=== PATIENT | female | born 1945 | race Caucasian/White ===

== ENCOUNTER 2018-03-10 19:31 | Inpatient (IN) | payer MEDICARE, BC ==
[~2018-03-10] VITALS: Ht 160 cm; Wt 53.2 kg
[2018-03-10 21:02] VITALS: BP 132/82
[2018-03-10] MEDS ORDERED: OLAN5TAB9 PO (21:42)
[2018-03-10] MEDS ORDERED: POLY255P PO (21:42)
[2018-03-10] MEDS ORDERED: BISA10SU2 RC (21:42)
[2018-03-10] MEDS ORDERED: ONDA4TAB12 PO (21:42)
[2018-03-10] MEDS ORDERED: CALC-157 PO (21:42)
[2018-03-10] MEDS ORDERED: AMLO5TAB2 PO (21:42)
[2018-03-10] MEDS ORDERED: MELA3TAB2 PO ×2 (21:42→22:08)
[2018-03-10] MEDS ORDERED: MIRT7.5T8 PO (21:42)
[2018-03-10] MEDS ORDERED: PROP10TA PO (21:42)
[2018-03-10] MEDS ORDERED: DONE10TA7 PO (21:42)
[2018-03-10] MEDS ORDERED: DOCU100C28 PO (21:42)
[2018-03-10] MEDS ORDERED: LEVO50TA5 PO (21:43)
[2018-03-10] MEDS ORDERED: ENOX40DI SQ (21:48)
[2018-03-10] MEDS ORDERED: ASPI-612 PO (21:48)
[2018-03-10] MEDS ORDERED: METHYL SALICYLATE/MENTHOL TOPICAL OINTMENT 29GM TUBE. TP PRN (22:00)
[2018-03-10] MEDS ORDERED: ACETAMINOPHEN 325 MG TABLET PO PRN (22:00)
[2018-03-10] MEDS ORDERED: MAGNESIUM HYDROXIDE 2,400 MG/30 ML ORAL.SUSP. PO PRN (22:00)
[2018-03-10] MEDS ORDERED: MAG HYDROX/AL HYDROX/SIMETH 30 ML ORAL.SUSP PO PRN (22:00)
[2018-03-10] MEDS ORDERED: ONDANSETRON ODT 4 MG TAB.RAPDIS PO PRN (22:15)
[2018-03-10] MEDS ORDERED: OLANZapine 2.5 MG TABLET PO PRN (22:15)
[2018-03-10] MEDS ORDERED: BISACODYL 10 MG SUPP.RECT RC PRN (22:15)
[2018-03-10 22:32] LABS: BASO % 0 % (0-3); EOS % 1 % (0-3); HEMATOCRIT 42.1 % (36.0-47.0); HEMOGLOBIN 13.7 g/dL (12.0-15.5); LYMPH # 2.5 x10^3/uL (1.0-4.8); LYMPH % 37 % (24-48); MEAN CORPUSCULAR HEMOGLOBIN 26 pg (25-35); MEAN CORPUSCULAR HGB CONC 33 g/dL (31-37); MEAN CORPUSCULAR VOLUME 79 fL (79-100); MONO # 0.7 x10^3/uL (0.0-1.1); MONO % 10 % (0-9); NEUT # 3.6 x10^3uL (1.8-7.7); NEUT % 52 % (31-73); PLATELET COUNT 325 x10^3/uL (140-400); RED BLOOD COUNT 5.33 x10^6/uL (3.50-5.40); RED CELL DISTRIBUTION WIDTH 14.7 % (11.5-14.5); WHITE BLOOD COUNT 6.9 x10^3/uL (4.0-11.0)
[2018-03-10 22:43] LABS: ALBUMIN/GLOBULIN RATIO 0.9 (1.0-1.7); CALCIUM 9.1 mg/dL (8.5-10.1); CREATININE 0.6 mg/dL (0.6-1.0); GFR 98.3; MAGNESIUM 2.1 mg/dL (1.8-2.4); TOTAL BILIRUBIN 0.4 mg/dL (0.2-1.0); TOTAL PROTEIN 6.5 g/dL (6.4-8.2)
[2018-03-10 22:49] LABS: POTASSIUM 2.8 mmol/L (3.5-5.1)
--- NOTE | 2018-03-10 23:07 | EKG ---
[address] [address] Test Date: 2018-03-10 Test Time: 21:36:28 Pat Name: REMINGTON SADLER Department: Room: [address] [place] [address] Gender: F [place]: : 1945 Requested By: LAUREL COUGHLIN Order Number: [id number] Reading MD: Indra Roach MD Measurements Intervals [place] Rate: 53 P: 56 WA: 124 QRS: -33 QRSD: 78 T: 96 QT: 436 QTc: 415 Interpretive Statements SINUS RHYTHM Electronically Signed On 03-16-2018 12:23:09 CDT by Indra Roach MD
[2018-03-10] MEDS ORDERED: POTASSIUM CHLORIDE 20 MEQ TABLET.ER. PO ONE (23:15)
[2018-03-10] MEDS: MIRTAZAPINE 7.5 MG TABLET. PO SCH (23:26)
[2018-03-11] MEDS ORDERED: POTASSIUM CHLORIDE 20 MEQ TABLET.ER. PO ONE ×2 (03:00→05:00)
[2018-03-11 06:08] VITALS: BP 120/79
[2018-03-11 08:19] VITALS: BP 130/84
[2018-03-11] MEDS: DOCUSATE SODIUM 100 MG CAPSULE PO SCH ×2 (08:33→20:31)
[2018-03-11] MEDS: CALCIUM CARB/VIT D3 500/200 TABLET PO SCH (08:33)
[2018-03-11] MEDS: amLODIPine BESYLATE 5 MG TABLET PO SCH (08:33)
[2018-03-11] MEDS: ASPIRIN ENTERIC COATED 81 MG TABLET.DR. PO SCH (08:33)
[2018-03-11] MEDS: DONEPEZIL HCL 10 MG TABLET PO SCH (08:33)
[2018-03-11] MEDS: POLYETHYLENE GLYCOL 3350 17 GM PACKET. PO SCH (08:34)
[2018-03-11] MEDS: LEVOTHYROXINE 50 MCG TABLET PO SCH (08:34)
[2018-03-11] MEDS: PROPRANOLOL 10 MG TABLET. PO SCH ×3 (08:34→20:31)
[2018-03-11 14:39] VITALS: BP 122/85
[2018-03-11 14:39] LABS: THYROID STIM HORMONE (TSH) 6.147 uIU/mL (0.358-3.740)
[2018-03-11 16:20] VITALS: BP 121/61
--- NOTE | 2018-03-11 18:17 | PDOC ---
Exam Note: Ru Note: Please also refer to the separate dictated note~for this date of service dictated separately.~Patient seen individually. Discussed the patient with Nursing staff reviewed the chart.~Reviewed interim history and current functioning. Reviewed vital signs,~Labs/ Radiology~and current medications noted below. Continue current treatment with the changes noted in the dictated addendum note Assessment: Vital Signs: Vital Signs Date Time Temp Pulse Resp B/P (MAP) Pulse Ox O2 Delivery O2 Flow Rate FiO2 03/11/18 16:20 97.6 64 18 121/61 (81) 95 03/10/18 21:02 Room Air I&O Intake and Output 03/11/18 07:00 Intake Total 120 ml Balance 120 ml Intake Oral 120 ml Labs: Laboratory Tests Test 03/10/18 22:10 03/11/18 07:10 White Blood Count 6.9 x10^3/uL (4.0-11.0) Red Blood Count 5.33 x10^6/uL (3.50-5.40) Hemoglobin 13.7 g/dL (12.0-15.5) Hematocrit 42.1 % (36.0-47.0) Mean Corpuscular Volume 79 fL (79-100) Mean Corpuscular Hemoglobin 26 pg (25-35) Mean Corpuscular Hemoglobin Concent 33 g/dL (31-37) Red Cell Distribution Width 14.7 % (11.5-14.5) H Platelet Count 325 x10^3/uL (140-400) Neutrophils (%) (Auto) 52 % (31-73) Lymphocytes (%) (Auto) 37 % (24-48) Monocytes (%) (Auto) 10 % (0-9) H Eosinophils (%) (Auto) 1 % (0-3) Basophils (%) (Auto) 0 % (0-3) Neutrophils # (Auto) 3.6 x10^3uL (1.8-7.7) Lymphocytes # (Auto) 2.5 x10^3/uL (1.0-4.8) Monocytes # (Auto) 0.7 x10^3/uL (0.0-1.1) Eosinophils # (Auto) 0.0 x10^3/uL (0.0-0.7) Basophils # (Auto) 0.0 x10^3/uL (0.0-0.2) Sodium Level 140 mmol/L (136-145) Potassium Level 2.8 mmol/L (3.5-5.1) *L 4.4 mmol/L (3.5-5.1) Chloride Level 100 mmol/L (98-107) Carbon Dioxide Level 31 mmol/L (21-32) Anion Gap 9 (6-14) Blood Urea Nitrogen 17 mg/dL (7-20) Creatinine 0.6 mg/dL (0.6-1.0) Estimated GFR (Cockcroft-Gault) 98.3 BUN/Creatinine Ratio 28 (6-20) H Glucose Level 84 mg/dL (70-99) Calcium Level 9.1 mg/dL (8.5-10.1) Magnesium Level 2.1 mg/dL (1.8-2.4) Iron Level 47 ug/dL (50-170) L Total Iron Binding Capacity 277 ug/dL (250-450) Iron Saturation 17 % (15-34) Total Bilirubin 0.4 mg/dL (0.2-1.0) Aspartate Amino Transferase (AST) 13 U/L (15-37) L Alanine Aminotransferase (ALT) 18 U/L (14-59) Alkaline Phosphatase 61 U/L (46-116) Total Protein 6.5 g/dL (6.4-8.2) Albumin 3.0 g/dL (3.4-5.0) L Albumin/Globulin Ratio 0.9 (1.0-1.7) L Triglycerides Level 50 mg/dL (0-150) Cholesterol Level 180 mg/dL (0-200) LDL Cholesterol, Calculated 119 mg/dL (0-100) H VLDL Cholesterol, Calculated 10 mg/dL (0-40) Non-HDL Cholesterol Calculated 129 mg/dL (0-129) HDL Cholesterol 51 mg/dL (40-60) Cholesterol/HDL Ratio 3.0 Vitamin B12 Level 1114 pg/mL (247-911) H 25-Hydroxy Vitamin D Total 54.8 ng/mL (30-100) Thyroid Stimulating Hormone (TSH) 6.147 uIU/mL (0.358-3.740) Current Medications: Meds: Current Medications Acetaminophen (Tylenol) 650 mg PRN Q6HRS PRN PO PAIN / TEMP; Start 03/10/18 at 22:00 Multi-Ingredient Ointment (Analgesic [place]) 1 shira PRN QID PRN TP MUSCLE PAIN; Start 03/10/18 at 22:00 Al Hydroxide/Mg Hydroxide (Mylanta Plus Xs) 15 ml PRN AFTMEALHC PRN PO DYSPEPSIA; Start 03/10/18 at 22:00 Magnesium Hydroxide (Milk Of Magnesia) 2,400 mg PRN QHS PRN PO CONSTIPATION; Start 03/10/18 at 22:00 Donepezil HCl (Aricept) 10 mg DAILY PO Last administered on 03/11/18 08:33; Start 03/11/18 at 09:00 Mirtazapine (Remeron) 7.5 mg QHS PO Last administered on 03/10/18 23:26; Start 03/10/18 at 22:30 Olanzapine (ZyPREXA) 2.5 mg PRN Q6HRS PRN PO ANXIETY / AGITATION; Start at 22:15 Melatonin 3 mg PRN QHS PRN PO INSOMNIA; Start 03/10/18 at 22:30 Amlodipine Besylate (Norvasc) 5 mg DAILY PO Last administered on 03/11/18 08: 33; Start 03/11/18 at 09:00 Aspirin (Aspirin Enteric Coated) 81 mg DAILY PO Last administered on 03/11/18 08:33; Start 03/11/18 at 09:00 Bisacodyl (Dulcolax Supp) 10 mg PRN DAILY PRN RC CONSTIPATION; Start 03/10/18 at 22:15 Calcium/Vitamin D (Oscal D 500mg/ 200uts) 1 tab DAILY PO Last administered on 08:33; Start 03/11/18 at 09:00 Docusate Sodium (Colace) 100 mg BID PO Last administered on 03/11/18 08:33; Start 03/11/18 at 09:00 Levothyroxine Sodium (Synthroid) 50 mcg DAILYAC PO Last administered on 08:34; Start 03/11/18 at 07:30 Ondansetron HCl (Zofran Odt) 4 mg PRN Q6HRS PRN PO NAUSEA/VOMITING; Start 03/10 at 22:15 Polyethylene Glycol (miraLAX) 17 gm DAILY PO Last administered on 4/18/18at 08: 34; Start 03/11/18 at 09:00 Propranolol HCl (Inderal) 10 mg TID PO Last administered on 03/11/18at 14:40; Start 03/11/18 at 09:00 Potassium Chloride (Klor-Con) 40 meq 1X ONCE PO Last administered on at 23:27; Start 03/10/18 at 23:15; Stop 03/10/18 at 23:22; Status DC Potassium Chloride (Klor-Con) 40 meq 1X ONCE PO Last administered on at 02:40; Start 03/11/18 at 03:00; Stop 03/11/18 at 03:02; Status DC Potassium Chloride (Klor-Con) 40 meq 1X ONCE PO Last administered on at 05:00; Start 03/11/18 at 05:00; Stop 03/11/18 at 05:01; Status DC Active Scripts Active Reported Melatonin 3 Mg Tablet 3 Mg PO PRN QHS PRN Lovenox (Enoxaparin Sodium) 40 Mg/0.4 Ml Disp.syrin 40 Mg SQ DAILY Aspirin Ec (Aspirin) 81 Mg Tablet.dr 81 Mg PO DAILY Levothyroxine Sodium 50 Mcg Tablet 50 Mcg PO DAILYAC Propranolol Hcl 10 Mg Tablet 10 Mg PO TID Polyethylene Glycol 3350 255 Gm Powder 17 Gm PO DAILY Ondansetron Odt (Ondansetron) 4 Mg Tab.rapdis 4 Mg PO PRN Q6HRS PRN Olanzapine 5 Mg Tablet 2.5 Mg PO PRN Q6HRS PRN Mirtazapine 7.5 Mg Tablet 7.5 Mg PO QHS Donepezil Hcl 10 Mg Tablet 10 Mg PO DAILY Docusate Sodium 100 Mg Capsule 100 Mg PO BID Calcium 500 + Vit D 200 Tablet (Calcium Carbonate/Vitamin D3) 1 Each Tablet 1 Each PO DAILY Bisacodyl 10 Mg Supp.rect 10 Mg RC PRN DAILY PRN Amlodipine Besylate 5 Mg Tablet 5 Mg PO DAILY I have reviewed the current psychotropics carefully including drug interactions. Risk benefit ratio favors no change other than as noted in my dictated progress note. Diagnosis: Problems: (1) Anxiety disorder (2) Dementia in Alzheimer's disease with delusions (3) Dementia in Alzheimer's disease with depression (4) Dementia, vascular, with delusions (5) Impulse control disorder LAUREL COUGHLIN MD Mar 11, 2018 18:17
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
[2018-03-11] MEDS: MIRTAZAPINE 7.5 MG TABLET. PO SCH (20:31)
[2018-03-11] MEDS: risperiDONE 0.25 MG TABLET. PO SCH (20:32)
--- NOTE | 2018-03-11 21:10 | PDOC ---
Exam Note: Ru Note: Please also refer to the separate dictated note~for this date of service dictated separately.~Patient seen individually. Discussed the patient with Nursing staff reviewed the chart.~Reviewed interim history and current functioning. Reviewed vital signs,~Labs/ Radiology~and current medications noted below. Continue current treatment with the changes noted in the dictated addendum note Assessment: Vital Signs: Vital Signs Date Time Temp Pulse Resp B/P (MAP) Pulse Ox O2 Delivery O2 Flow Rate FiO2 03/11/18 20:31 64 121/61 03/11/18 16:20 97.6 18 95 03/10/18 21:02 Room Air I&O Intake and Output 03/11/18 07:00 Intake Total 120 ml Balance 120 ml Intake Oral 120 ml Labs: Laboratory Tests Test 03/10/18 22:10 03/11/18 07:10 White Blood Count 6.9 x10^3/uL (4.0-11.0) Red Blood Count 5.33 x10^6/uL (3.50-5.40) Hemoglobin 13.7 g/dL (12.0-15.5) Hematocrit 42.1 % (36.0-47.0) Mean Corpuscular Volume 79 fL (79-100) Mean Corpuscular Hemoglobin 26 pg (25-35) Mean Corpuscular Hemoglobin Concent 33 g/dL (31-37) Red Cell Distribution Width 14.7 % (11.5-14.5) H Platelet Count 325 x10^3/uL (140-400) Neutrophils (%) (Auto) 52 % (31-73) Lymphocytes (%) (Auto) 37 % (24-48) Monocytes (%) (Auto) 10 % (0-9) H Eosinophils (%) (Auto) 1 % (0-3) Basophils (%) (Auto) 0 % (0-3) Neutrophils # (Auto) 3.6 x10^3uL (1.8-7.7) Lymphocytes # (Auto) 2.5 x10^3/uL (1.0-4.8) Monocytes # (Auto) 0.7 x10^3/uL (0.0-1.1) Eosinophils # (Auto) 0.0 x10^3/uL (0.0-0.7) Basophils # (Auto) 0.0 x10^3/uL (0.0-0.2) Sodium Level 140 mmol/L (136-145) Potassium Level 2.8 mmol/L (3.5-5.1) *L 4.4 mmol/L (3.5-5.1) Chloride Level 100 mmol/L (98-107) Carbon Dioxide Level 31 mmol/L (21-32) Anion Gap 9 (6-14) Blood Urea Nitrogen 17 mg/dL (7-20) Creatinine 0.6 mg/dL (0.6-1.0) Estimated GFR (Cockcroft-Gault) 98.3 BUN/Creatinine Ratio 28 (6-20) H Glucose Level 84 mg/dL (70-99) Calcium Level 9.1 mg/dL (8.5-10.1) Magnesium Level 2.1 mg/dL (1.8-2.4) Iron Level 47 ug/dL (50-170) L Total Iron Binding Capacity 277 ug/dL (250-450) Iron Saturation 17 % (15-34) Total Bilirubin 0.4 mg/dL (0.2-1.0) Aspartate Amino Transferase (AST) 13 U/L (15-37) L Alanine Aminotransferase (ALT) 18 U/L (14-59) Alkaline Phosphatase 61 U/L (46-116) Total Protein 6.5 g/dL (6.4-8.2) Albumin 3.0 g/dL (3.4-5.0) L Albumin/Globulin Ratio 0.9 (1.0-1.7) L Triglycerides Level 50 mg/dL (0-150) Cholesterol Level 180 mg/dL (0-200) LDL Cholesterol, Calculated 119 mg/dL (0-100) H VLDL Cholesterol, Calculated 10 mg/dL (0-40) Non-HDL Cholesterol Calculated 129 mg/dL (0-129) HDL Cholesterol 51 mg/dL (40-60) Cholesterol/HDL Ratio 3.0 Vitamin B12 Level 1114 pg/mL (247-911) H 25-Hydroxy Vitamin D Total 54.8 ng/mL (30-100) Thyroid Stimulating Hormone (TSH) 6.147 uIU/mL (0.358-3.740) Current Medications: Meds: Current Medications Acetaminophen (Tylenol) 650 mg PRN Q6HRS PRN PO PAIN / TEMP; Start 03/10/18 at 22:00 Multi-Ingredient Ointment (Analgesic [place]) 1 shira PRN QID PRN TP MUSCLE PAIN; Start 03/10/18 at 22:00 Al Hydroxide/Mg Hydroxide (Mylanta Plus Xs) 15 ml PRN AFTMEALHC PRN PO DYSPEPSIA; Start 03/10/18 at 22:00 Magnesium Hydroxide (Milk Of Magnesia) 2,400 mg PRN QHS PRN PO CONSTIPATION; Start 03/10/18 at 22:00 Donepezil HCl (Aricept) 10 mg DAILY PO Last administered on 03/11/18 08:33; Start 03/11/18 at 09:00 Mirtazapine (Remeron) 7.5 mg QHS PO Last administered on 03/11/18 20:31; Start 03/10/18 at 22:30 Olanzapine (ZyPREXA) 2.5 mg PRN Q6HRS PRN PO ANXIETY / AGITATION; Start at 22:15 Melatonin 3 mg PRN QHS PRN PO INSOMNIA; Start 03/10/18 at 22:30 Amlodipine Besylate (Norvasc) 5 mg DAILY PO Last administered on 03/11/18 08: 33; Start 03/11/18 at 09:00 Aspirin (Aspirin Enteric Coated) 81 mg DAILY PO Last administered on 03/11/18 08:33; Start 03/11/18 at 09:00 Bisacodyl (Dulcolax Supp) 10 mg PRN DAILY PRN RC CONSTIPATION; Start 03/10/18 at 22:15 Calcium/Vitamin D (Oscal D 500mg/ 200uts) 1 tab DAILY PO Last administered on 08:33; Start 03/11/18 at 09:00 Docusate Sodium (Colace) 100 mg BID PO Last administered on 03/11/18 20:31; Start 03/11/18 at 09:00 Levothyroxine Sodium (Synthroid) 50 mcg DAILYAC PO Last administered on 08:34; Start 03/11/18 at 07:30 Ondansetron HCl (Zofran Odt) 4 mg PRN Q6HRS PRN PO NAUSEA/VOMITING; Start 03/10 at 22:15 Polyethylene Glycol (miraLAX) 17 gm DAILY PO Last administered on 4/18/18at 08: 34; Start 03/11/18 at 09:00 Propranolol HCl (Inderal) 10 mg TID PO Last administered on 03/11/18at 20:31; Start 03/11/18 at 09:00 Potassium Chloride (Klor-Con) 40 meq 1X ONCE PO Last administered on at 23:27; Start 03/10/18 at 23:15; Stop 03/10/18 at 23:22; Status DC Potassium Chloride (Klor-Con) 40 meq 1X ONCE PO Last administered on at 02:40; Start 03/11/18 at 03:00; Stop 03/11/18 at 03:02; Status DC Potassium Chloride (Klor-Con) 40 meq 1X ONCE PO Last administered on at 05:00; Start 03/11/18 at 05:00; Stop 03/11/18 at 05:01; Status DC Risperidone (RisperDAL) 0.25 mg QHS PO Last administered on 03/11/18at 20:32; Start 03/11/18 at 21:00 Active Scripts Active Reported Melatonin 3 Mg Tablet 3 Mg PO PRN QHS PRN Lovenox (Enoxaparin Sodium) 40 Mg/0.4 Ml Disp.syrin 40 Mg SQ DAILY Aspirin Ec (Aspirin) 81 Mg Tablet.dr 81 Mg PO DAILY Levothyroxine Sodium 50 Mcg Tablet 50 Mcg PO DAILYAC Propranolol Hcl 10 Mg Tablet 10 Mg PO TID Polyethylene Glycol 3350 255 Gm Powder 17 Gm PO DAILY Ondansetron Odt (Ondansetron) 4 Mg Tab.rapdis 4 Mg PO PRN Q6HRS PRN Olanzapine 5 Mg Tablet 2.5 Mg PO PRN Q6HRS PRN Mirtazapine 7.5 Mg Tablet 7.5 Mg PO QHS Donepezil Hcl 10 Mg Tablet 10 Mg PO DAILY Docusate Sodium 100 Mg Capsule 100 Mg PO BID Calcium 500 + Vit D 200 Tablet (Calcium Carbonate/Vitamin D3) 1 Each Tablet 1 Each PO DAILY Bisacodyl 10 Mg Supp.rect 10 Mg RC PRN DAILY PRN Amlodipine Besylate 5 Mg Tablet 5 Mg PO DAILY I have reviewed the current psychotropics carefully including drug interactions. Risk benefit ratio favors no change other than as noted in my dictated progress note. Diagnosis: Problems: (1) Anxiety disorder (2) Impulse control disorder (3) Dementia, vascular, with delusions (4) Dementia in Alzheimer's disease with depression (5) Dementia in Alzheimer's disease with delusions LAUREL COUGHLIN MD Mar 11, 2018 21:10
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
[2018-03-12 02:08] LABS: T3 TOTAL 98 ng/dL (71-180); THYROXINE 9.5 ug/dL (4.5-12.0)
[2018-03-12 05:14] LABS: HEMOGLOBIN A1C 5.8 % (4.8-5.6)
[2018-03-12 05:43] VITALS: BP 117/53
[2018-03-12 07:54] LABS: CALCIUM 9.2 mg/dL (8.5-10.1); CREATININE 0.7 mg/dL (0.6-1.0); GFR 82.3; POTASSIUM 4.1 mmol/L (3.5-5.1)
[2018-03-12] MEDS: POLYETHYLENE GLYCOL 3350 17 GM PACKET. PO SCH (08:27)
[2018-03-12] MEDS: ASPIRIN ENTERIC COATED 81 MG TABLET.DR. PO SCH (08:27)
[2018-03-12] MEDS: PROPRANOLOL 10 MG TABLET. PO SCH ×3 (08:28→19:39)
[2018-03-12] MEDS: LEVOTHYROXINE 50 MCG TABLET PO SCH (08:28)
[2018-03-12] MEDS: CALCIUM CARB/VIT D3 500/200 TABLET PO SCH (08:28)
[2018-03-12] MEDS: DOCUSATE SODIUM 100 MG CAPSULE PO SCH ×2 (08:28→19:40)
[2018-03-12] MEDS: DONEPEZIL HCL 10 MG TABLET PO SCH (08:28)
[2018-03-12] MEDS: amLODIPine BESYLATE 5 MG TABLET PO SCH (08:28)
[2018-03-12 14:45] VITALS: BP 139/85
[2018-03-12 16:11] VITALS: BP 149/89
[2018-03-12] MEDS: MIRTAZAPINE 7.5 MG TABLET. PO SCH (19:39)
[2018-03-12] MEDS: risperiDONE 0.25 MG TABLET. PO SCH (19:40)
--- NOTE | 2018-03-12 20:52 | PDOC ---
Exam Note: Ru Note: Please also refer to the separate dictated note~for this date of service dictated separately.~Patient seen individually. Discussed the patient with Nursing staff reviewed the chart.~Reviewed interim history and current functioning. Reviewed vital signs,~Labs/ Radiology~and current medications noted below. Continue current treatment with the changes noted in the dictated addendum note Assessment: Vital Signs: Vital Signs Date Time Temp Pulse Resp B/P (MAP) Pulse Ox O2 Delivery O2 Flow Rate FiO2 03/12/18 19:39 63 149/89 03/12/18 16:11 97.6 16 95 Room Air I&O Intake and Output 03/12/18 07:00 Intake Total 840 ml Balance 840 ml Intake Oral 840 ml Labs: Laboratory Tests Test 03/12/18 07:22 Sodium Level 140 mmol/L (136-145) Potassium Level 4.1 mmol/L (3.5-5.1) Chloride Level 103 mmol/L (98-107) Carbon Dioxide Level 32 mmol/L (21-32) Anion Gap 5 (6-14) L Blood Urea Nitrogen 16 mg/dL (7-20) Creatinine 0.7 mg/dL (0.6-1.0) Estimated GFR (Cockcroft-Gault) 82.3 Glucose Level 92 mg/dL (70-99) Calcium Level 9.2 mg/dL (8.5-10.1) Current Medications: Meds: Current Medications Acetaminophen (Tylenol) 650 mg PRN Q6HRS PRN PO PAIN / TEMP; Start 03/10/18 at 22:00 Multi-Ingredient Ointment (Analgesic [place]) 1 shira PRN QID PRN TP MUSCLE PAIN; Start 03/10/18 at 22:00 Al Hydroxide/Mg Hydroxide (Mylanta Plus Xs) 15 ml PRN AFTMEALHC PRN PO DYSPEPSIA; Start 03/10/18 at 22:00 Magnesium Hydroxide (Milk Of Magnesia) 2,400 mg PRN QHS PRN PO CONSTIPATION; Start 03/10/18 at 22:00 Donepezil HCl (Aricept) 10 mg DAILY PO Last administered on 03/12/18at 08:28; Start 03/11/18 at 09:00 Mirtazapine (Remeron) 7.5 mg QHS PO Last administered on 03/12/18at 19:39; Start 03/10/18 at 22:30 Olanzapine (ZyPREXA) 2.5 mg PRN Q6HRS PRN PO ANXIETY / AGITATION; Start at 22:15 Melatonin 3 mg PRN QHS PRN PO INSOMNIA; Start 03/10/18 at 22:30 Amlodipine Besylate (Norvasc) 5 mg DAILY PO Last administered on 03/12/18 08: 28; Start 03/11/18 at 09:00 Aspirin (Aspirin Enteric Coated) 81 mg DAILY PO Last administered on 03/12/18 08:27; Start 03/11/18 at 09:00 Bisacodyl (Dulcolax Supp) 10 mg PRN DAILY PRN RC CONSTIPATION; Start 03/10/18 at 22:15 Calcium/Vitamin D (Oscal D 500mg/ 200uts) 1 tab DAILY PO Last administered on 08:28; Start 03/11/18 at 09:00 Docusate Sodium (Colace) 100 mg BID PO Last administered on 03/12/18 19:40; Start 03/11/18 at 09:00 Levothyroxine Sodium (Synthroid) 50 mcg DAILYAC PO Last administered on 08:28; Start 03/11/18 at 07:30; Stop 03/12/18 at 11:22; Status DC Ondansetron HCl (Zofran Odt) 4 mg PRN Q6HRS PRN PO NAUSEA/VOMITING; Start 03/10 at 22:15 Polyethylene Glycol (miraLAX) 17 gm DAILY PO Last administered on 03/12/18at 08: 27; Start 03/11/18 at 09:00 Propranolol HCl (Inderal) 10 mg TID PO Last administered on 03/12/18 19:39; Start 03/11/18 at 09:00 Potassium Chloride (Klor-Con) 40 meq 1X ONCE PO Last administered on at 23:27; Start 03/10/18 at 23:15; Stop 03/10/18 at 23:22; Status DC Potassium Chloride (Klor-Con) 40 meq 1X ONCE PO Last administered on at 02:40; Start 03/11/18 at 03:00; Stop 03/11/18 at 03:02; Status DC Potassium Chloride (Klor-Con) 40 meq 1X ONCE PO Last administered on at 05:00; Start 03/11/18 at 05:00; Stop 03/11/18 at 05:01; Status DC Risperidone (RisperDAL) 0.25 mg QHS PO Last administered on 03/12/18at 19:40; Start 03/11/18 at 21:00; Stop 03/13/18 at 20:59 Levothyroxine Sodium (Synthroid) 50 mcg DAILY06 PO ; Start 03/13/18 at 06:00 Risperidone (RisperDAL) 0.5 mg QHS PO ; Start 03/13/18 at 21:00 Active Scripts Active Reported Melatonin 3 Mg Tablet 3 Mg PO PRN QHS PRN Lovenox (Enoxaparin Sodium) 40 Mg/0.4 Ml Disp.syrin 40 Mg SQ DAILY Aspirin Ec (Aspirin) 81 Mg Tablet.dr 81 Mg PO DAILY Levothyroxine Sodium 50 Mcg Tablet 50 Mcg PO DAILYAC Propranolol Hcl 10 Mg Tablet 10 Mg PO TID Polyethylene Glycol 3350 255 Gm Powder 17 Gm PO DAILY Ondansetron Odt (Ondansetron) 4 Mg Tab.rapdis 4 Mg PO PRN Q6HRS PRN Olanzapine 5 Mg Tablet 2.5 Mg PO PRN Q6HRS PRN Mirtazapine 7.5 Mg Tablet 7.5 Mg PO QHS Donepezil Hcl 10 Mg Tablet 10 Mg PO DAILY Docusate Sodium 100 Mg Capsule 100 Mg PO BID Calcium 500 + Vit D 200 Tablet (Calcium Carbonate/Vitamin D3) 1 Each Tablet 1 Each PO DAILY Bisacodyl 10 Mg Supp.rect 10 Mg RC PRN DAILY PRN Amlodipine Besylate 5 Mg Tablet 5 Mg PO DAILY I have reviewed the current psychotropics carefully including drug interactions. Risk benefit ratio favors no change other than as noted in my dictated progress note. Diagnosis: Problems: (1) Anxiety disorder (2) Impulse control disorder (3) Dementia, vascular, with delusions (4) Dementia in Alzheimer's disease with depression (5) Dementia in Alzheimer's disease with delusions LAUREL COUGHLIN MD Mar 12, 2018 20:52
[2018-03-13] MEDS: LEVOTHYROXINE 50 MCG TABLET PO SCH (05:33)
[2018-03-13 05:49] VITALS: BP 146/81
[2018-03-13 08:26] VITALS: BP 129/82
[2018-03-13] MEDS: CALCIUM CARB/VIT D3 500/200 TABLET PO SCH (08:44)
[2018-03-13] MEDS: ASPIRIN ENTERIC COATED 81 MG TABLET.DR. PO SCH (08:44)
[2018-03-13] MEDS: DONEPEZIL HCL 10 MG TABLET PO SCH (08:44)
[2018-03-13] MEDS: POLYETHYLENE GLYCOL 3350 17 GM PACKET. PO SCH (08:44)
[2018-03-13] MEDS: PROPRANOLOL 10 MG TABLET. PO SCH ×3 (08:45→19:33)
[2018-03-13] MEDS: amLODIPine BESYLATE 5 MG TABLET PO SCH (08:45)
[2018-03-13] MEDS: DOCUSATE SODIUM 100 MG CAPSULE PO SCH ×2 (08:45→19:32)
[2018-03-13 13:59] VITALS: BP 152/81
[2018-03-13 15:58] VITALS: BP 164/72
[2018-03-13] MEDS: MIRTAZAPINE 7.5 MG TABLET. PO SCH (19:32)
[2018-03-13] MEDS: risperiDONE 0.5 MG TABLET. PO SCH (19:54)
--- NOTE | 2018-03-13 20:47 | PDOC ---
Exam Note: Ru Note: Please also refer to the separate dictated note~for this date of service dictated separately.~Patient seen individually. Discussed the patient with Nursing staff reviewed the chart.~Reviewed interim history and current functioning. Reviewed vital signs,~Labs/ Radiology~and current medications noted below. Continue current treatment with the changes noted in the dictated addendum note Assessment: Vital Signs: Vital Signs Date Time Temp Pulse Resp B/P (MAP) Pulse Ox O2 Delivery O2 Flow Rate FiO2 03/13/18 19:33 66 164/72 03/13/18 15:58 97.4 16 98 Room Air I&O Intake and Output 03/13/18 07:00 Intake Total 1080 ml Balance 1080 ml Intake Oral 1080 ml Current Medications: Meds: Current Medications Acetaminophen (Tylenol) 650 mg PRN Q6HRS PRN PO PAIN / TEMP; Start 03/10/18 at 22:00 Multi-Ingredient Ointment (Analgesic [place]) 1 shira PRN QID PRN TP MUSCLE PAIN; Start 03/10/18 at 22:00 Al Hydroxide/Mg Hydroxide (Mylanta Plus Xs) 15 ml PRN AFTMEALHC PRN PO DYSPEPSIA; Start 03/10/18 at 22:00 Magnesium Hydroxide (Milk Of Magnesia) 2,400 mg PRN QHS PRN PO CONSTIPATION; Start 03/10/18 at 22:00 Donepezil HCl (Aricept) 10 mg DAILY PO Last administered on 03/13/18at 08:44; Start 03/11/18 at 09:00 Mirtazapine (Remeron) 7.5 mg QHS PO Last administered on 03/13/18at 19:32; Start 03/10/18 at 22:30 Olanzapine (ZyPREXA) 2.5 mg PRN Q6HRS PRN PO ANXIETY / AGITATION; Start at 22:15 Melatonin 3 mg PRN QHS PRN PO INSOMNIA; Start 03/10/18 at 22:30 Amlodipine Besylate (Norvasc) 5 mg DAILY PO Last administered on 03/13/18at 08: 45; Start 03/11/18 at 09:00 Aspirin (Aspirin Enteric Coated) 81 mg DAILY PO Last administered on 03/13/18at 08:44; Start 03/11/18 at 09:00 Bisacodyl (Dulcolax Supp) 10 mg PRN DAILY PRN RC CONSTIPATION; Start 03/10/18 at 22:15 Calcium/Vitamin D (Oscal D 500mg/ 200uts) 1 tab DAILY PO Last administered on 08:44; Start 03/11/18 at 09:00 Docusate Sodium (Colace) 100 mg BID PO Last administered on 03/13/18 19:32; Start 03/11/18 at 09:00 Levothyroxine Sodium (Synthroid) 50 mcg DAILYAC PO Last administered on 08:28; Start 03/11/18 at 07:30; Stop 03/12/18 at 11:22; Status DC Ondansetron HCl (Zofran Odt) 4 mg PRN Q6HRS PRN PO NAUSEA/VOMITING; Start 03/10 at 22:15 Polyethylene Glycol (miraLAX) 17 gm DAILY PO Last administered on 03/13/18 08: 44; Start 03/11/18 at 09:00 Propranolol HCl (Inderal) 10 mg TID PO Last administered on 03/13/18 19:33; Start 03/11/18 at 09:00 Potassium Chloride (Klor-Con) 40 meq 1X ONCE PO Last administered on at 23:27; Start 03/10/18 at 23:15; Stop 03/10/18 at 23:22; Status DC Potassium Chloride (Klor-Con) 40 meq 1X ONCE PO Last administered on at 02:40; Start 03/11/18 at 03:00; Stop 03/11/18 at 03:02; Status DC Potassium Chloride (Klor-Con) 40 meq 1X ONCE PO Last administered on 05:00; Start 03/11/18 at 05:00; Stop 03/11/18 at 05:01; Status DC Risperidone (RisperDAL) 0.25 mg QHS PO Last administered on 03/12/18 19:40; Start 03/11/18 at 21:00; Stop 03/13/18 at 20:59 Levothyroxine Sodium (Synthroid) 50 mcg DAILY06 PO Last administered on 05:33; Start 03/13/18 at 06:00 Risperidone (RisperDAL) 0.5 mg QHS PO Last administered on 03/13/18at 19:54; Start 03/13/18 at 21:00 Fluvoxamine Maleate (Luvox) 25 mg QHS PO Last administered on 03/13/18at 19:54; Start 03/13/18 at 21:00 Active Scripts Active Reported Melatonin 3 Mg Tablet 3 Mg PO PRN QHS PRN Lovenox (Enoxaparin Sodium) 40 Mg/0.4 Ml Disp.syrin 40 Mg SQ DAILY Aspirin Ec (Aspirin) 81 Mg Tablet.dr 81 Mg PO DAILY Levothyroxine Sodium 50 Mcg Tablet 50 Mcg PO DAILYAC Propranolol Hcl 10 Mg Tablet 10 Mg PO TID Polyethylene Glycol 3350 255 Gm Powder 17 Gm PO DAILY Ondansetron Odt (Ondansetron) 4 Mg Tab.rapdis 4 Mg PO PRN Q6HRS PRN Olanzapine 5 Mg Tablet 2.5 Mg PO PRN Q6HRS PRN Mirtazapine 7.5 Mg Tablet 7.5 Mg PO QHS Donepezil Hcl 10 Mg Tablet 10 Mg PO DAILY Docusate Sodium 100 Mg Capsule 100 Mg PO BID Calcium 500 + Vit D 200 Tablet (Calcium Carbonate/Vitamin D3) 1 Each Tablet 1 Each PO DAILY Bisacodyl 10 Mg Supp.rect 10 Mg RC PRN DAILY PRN Amlodipine Besylate 5 Mg Tablet 5 Mg PO DAILY I have reviewed the current psychotropics carefully including drug interactions. Risk benefit ratio favors no change other than as noted in my dictated progress note. Diagnosis: Problems: (1) Anxiety disorder (2) Impulse control disorder (3) Dementia, vascular, with delusions (4) Dementia in Alzheimer's disease with depression (5) Dementia in Alzheimer's disease with delusions LAUREL COUGHLIN MD Mar 13, 2018 20:47
--- NOTE | 2018-03-13 20:54 | PN ---
DATE: 03/12/2018 This is a late entry for 03/12/2018 covers elements not covered in my initial note of 03/12/2018. SUBJECTIVE: I met with the patient in the evening of 03/12/2018, staffed at a treatment team meeting with the entire team in the morning. The patient slept 7-3/4 hours previous evening. At the treatment team meeting, discussed her progress. She has been withdrawn, resistive to medications, quite obsessive, paranoid, states she is not sleeping well, but this could be part of her perception rather than reality since she slept 7-3/4 hours documented by nursing staff. REVIEW OF SYSTEMS: Obsessed with her bowel. No CV, , pulmonary, eye system symptoms on review. MENTAL STATUS EXAM: Oriented to herself and situation. Speech has some latency, coherent. Abstraction fair, computation impaired, language function intact. Mood and affect remains withdrawn. LABORATORY DATA: Reviewed. IMPRESSION: Psychotic disorder, unspecified; major neurocognitive disorder, early Alzheimer, vascular with delusions. PLAN: Increase Risperdal to 0.5 mg p.o. at bedtime on 03/13/2018. We discussed trazodone, but she states she has had it in the past, caused hangover. We will maintain rest of the psychotropics mentioned in my initial note. LAUREL COUGHLIN MD DR: YAKELIN/omar JOB#: [id number] / [id number]
[2018-03-14] MEDS: MELATONIN 3 MG TABLET PO PRN (01:20)
[2018-03-14 05:48] VITALS: BP 146/69
[2018-03-14] MEDS: LEVOTHYROXINE 50 MCG TABLET PO SCH (05:51)
[2018-03-14] MEDS: DONEPEZIL HCL 10 MG TABLET PO SCH (07:34)
[2018-03-14] MEDS: POLYETHYLENE GLYCOL 3350 17 GM PACKET. PO SCH (07:35)
[2018-03-14] MEDS: CALCIUM CARB/VIT D3 500/200 TABLET PO SCH (07:35)
[2018-03-14] MEDS: DOCUSATE SODIUM 100 MG CAPSULE PO SCH ×2 (07:35→19:54)
[2018-03-14] MEDS: ASPIRIN ENTERIC COATED 81 MG TABLET.DR. PO SCH (07:35)
[2018-03-14] MEDS: amLODIPine BESYLATE 5 MG TABLET PO SCH (07:35)
[2018-03-14] MEDS: PROPRANOLOL 10 MG TABLET. PO SCH ×3 (07:35→19:56)
[2018-03-14 16:08] VITALS: BP 132/69
[2018-03-14] MEDS: MIRTAZAPINE 7.5 MG TABLET. PO SCH (19:54)
[2018-03-14] MEDS: risperiDONE 0.5 MG TABLET. PO SCH (19:54)
--- NOTE | 2018-03-14 22:28 | PDOC ---
Exam Note: Ru Note: Please also refer to the separate dictated note~for this date of service dictated separately.~Patient seen individually. Discussed the patient with Nursing staff reviewed the chart.~Reviewed interim history and current functioning. Reviewed vital signs,~Labs/ Radiology~and current medications noted below. Continue current treatment with the changes noted in the dictated addendum note Assessment: Vital Signs: Vital Signs Date Time Temp Pulse Resp B/P (MAP) Pulse Ox O2 Delivery O2 Flow Rate FiO2 03/14/18 19:56 54 132/69 03/14/18 16:08 97.6 20 100 Room Air I&O Intake and Output 03/14/18 07:00 Intake Total 720 ml Balance 720 ml Intake Oral 720 ml Current Medications: Meds: Current Medications Acetaminophen (Tylenol) 650 mg PRN Q6HRS PRN PO PAIN / TEMP; Start 03/10/18 at 22:00 Multi-Ingredient Ointment (Analgesic [place]) 1 shira PRN QID PRN TP MUSCLE PAIN; Start 03/10/18 at 22:00 Al Hydroxide/Mg Hydroxide (Mylanta Plus Xs) 15 ml PRN AFTMEALHC PRN PO DYSPEPSIA; Start 03/10/18 at 22:00 Magnesium Hydroxide (Milk Of Magnesia) 2,400 mg PRN QHS PRN PO CONSTIPATION; Start 03/10/18 at 22:00 Donepezil HCl (Aricept) 10 mg DAILY PO Last administered on 03/14/18at 07:34; Start 03/11/18 at 09:00 Mirtazapine (Remeron) 7.5 mg QHS PO Last administered on 03/14/18at 19:54; Start 03/10/18 at 22:30 Olanzapine (ZyPREXA) 2.5 mg PRN Q6HRS PRN PO ANXIETY / AGITATION; Start at 22:15 Melatonin 3 mg PRN QHS PRN PO INSOMNIA; Start 03/10/18 at 22:30 Amlodipine Besylate (Norvasc) 5 mg DAILY PO Last administered on 03/14/18at 07: 35; Start 03/11/18 at 09:00 Aspirin (Aspirin Enteric Coated) 81 mg DAILY PO Last administered on 03/14/18at 07:35; Start 03/11/18 at 09:00 Bisacodyl (Dulcolax Supp) 10 mg PRN DAILY PRN RC CONSTIPATION; Start 03/10/18 at 22:15 Calcium/Vitamin D (Oscal D 500mg/ 200uts) 1 tab DAILY PO Last administered on 07:35; Start 03/11/18 at 09:00 Docusate Sodium (Colace) 100 mg BID PO Last administered on 03/14/18 19:54; Start 03/11/18 at 09:00 Levothyroxine Sodium (Synthroid) 50 mcg DAILYAC PO Last administered on 08:28; Start 03/11/18 at 07:30; Stop 03/12/18 at 11:22; Status DC Ondansetron HCl (Zofran Odt) 4 mg PRN Q6HRS PRN PO NAUSEA/VOMITING; Start 03/10 at 22:15 Polyethylene Glycol (miraLAX) 17 gm DAILY PO Last administered on 03/14/18 07: 35; Start 03/11/18 at 09:00 Propranolol HCl (Inderal) 10 mg TID PO Last administered on 03/14/18 19:56; Start 03/11/18 at 09:00 Potassium Chloride (Klor-Con) 40 meq 1X ONCE PO Last administered on at 23:27; Start 03/10/18 at 23:15; Stop 03/10/18 at 23:22; Status DC Potassium Chloride (Klor-Con) 40 meq 1X ONCE PO Last administered on at 02:40; Start 03/11/18 at 03:00; Stop 03/11/18 at 03:02; Status DC Potassium Chloride (Klor-Con) 40 meq 1X ONCE PO Last administered on at 05:00; Start 03/11/18 at 05:00; Stop 03/11/18 at 05:01; Status DC Risperidone (RisperDAL) 0.25 mg QHS PO Last administered on 03/12/18 19:40; Start 03/11/18 at 21:00; Stop 03/13/18 at 20:59; Status DC Levothyroxine Sodium (Synthroid) 50 mcg DAILY06 PO Last administered on 05:51; Start 03/13/18 at 06:00 Risperidone (RisperDAL) 0.5 mg QHS PO Last administered on 03/14/18at 19:54; Start 03/13/18 at 21:00 Fluvoxamine Maleate (Luvox) 25 mg QHS PO Last administered on 03/14/18at 19:54; Start 03/13/18 at 21:00 Active Scripts Active Reported Melatonin 3 Mg Tablet 3 Mg PO PRN QHS PRN Lovenox (Enoxaparin Sodium) 40 Mg/0.4 Ml Disp.syrin 40 Mg SQ DAILY Aspirin Ec (Aspirin) 81 Mg Tablet.dr 81 Mg PO DAILY Levothyroxine Sodium 50 Mcg Tablet 50 Mcg PO DAILYAC Propranolol Hcl 10 Mg Tablet 10 Mg PO TID Polyethylene Glycol 3350 255 Gm Powder 17 Gm PO DAILY Ondansetron Odt (Ondansetron) 4 Mg Tab.rapdis 4 Mg PO PRN Q6HRS PRN Olanzapine 5 Mg Tablet 2.5 Mg PO PRN Q6HRS PRN Mirtazapine 7.5 Mg Tablet 7.5 Mg PO QHS Donepezil Hcl 10 Mg Tablet 10 Mg PO DAILY Docusate Sodium 100 Mg Capsule 100 Mg PO BID Calcium 500 + Vit D 200 Tablet (Calcium Carbonate/Vitamin D3) 1 Each Tablet 1 Each PO DAILY Bisacodyl 10 Mg Supp.rect 10 Mg RC PRN DAILY PRN Amlodipine Besylate 5 Mg Tablet 5 Mg PO DAILY I have reviewed the current psychotropics carefully including drug interactions. Risk benefit ratio favors no change other than as noted in my dictated progress note. Diagnosis: Problems: (1) Anxiety disorder (2) Impulse control disorder (3) Dementia, vascular, with delusions (4) Dementia in Alzheimer's disease with depression (5) Dementia in Alzheimer's disease with delusions LAUREL COUGHLIN MD Mar 14, 2018 22:28
[2018-03-15] MEDS: LEVOTHYROXINE 50 MCG TABLET PO SCH (06:08)
[2018-03-15 06:09] VITALS: BP 113/63
[2018-03-15] MEDS: DOCUSATE SODIUM 100 MG CAPSULE PO SCH ×2 (08:00→20:30)
[2018-03-15] MEDS: amLODIPine BESYLATE 5 MG TABLET PO SCH (08:01)
[2018-03-15] MEDS: CALCIUM CARB/VIT D3 500/200 TABLET PO SCH (08:01)
[2018-03-15] MEDS: PROPRANOLOL 10 MG TABLET. PO SCH ×3 (08:01→20:30)
[2018-03-15] MEDS: POLYETHYLENE GLYCOL 3350 17 GM PACKET. PO SCH (08:01)
[2018-03-15] MEDS: ASPIRIN ENTERIC COATED 81 MG TABLET.DR. PO SCH (08:01)
[2018-03-15] MEDS: DONEPEZIL HCL 10 MG TABLET PO SCH (08:01)
--- NOTE | 2018-03-15 09:30 | PN ---
DATE: 03/13/2018 PSYCHIATRIC PROGRESS NOTE This is a late entry 03/13/2018, covers elements not covered in my initial note for 03/13/2018. SUBJECTIVE: I met with the patient evening of 03/13/2018. The patient slept 6-1/2 hours previous evening, the patient remains quite psychotic, delusional regarding having colon cancer and delusional regarding having had no bowel movement for a long period of time. Nursing staff have checked with [facility] and she certainly is misperceiving her frequency of bowel movements. She was hateful, irritable previous evening, obsessive, anxious, labile. Other than GI symptoms, no CV; ; pulmonary system symptoms on review. MENTAL STATUS EXAM: Reasonably oriented. Speech coherent, rapid at times. Abstraction fair, computation impaired, language function intact. Mood and affect remain somewhat labile. She is still paranoid, suspicious, less so than before. LABORATORY DATA: Reviewed. IMPRESSION: Major depressive disorder with psychotic features, obsessive compulsive disorder, psychotic disorder, unspecified; anxiety disorder, unspecified. Rest unchanged from admission. PLAN: Start Luvox 25 mg p.o. at bedtime. Continue Risperdal 0.5 mg at bedtime, Aricept 10 mg a day, melatonin 3 mg at bedtime p.r.n., Remeron 7.5 mg at bedtime, Zyprexa p.r.n. MAN Carla COUGHLIN MD DR: YAKELIN/omar JOB#: [id number] / [id number]
[2018-03-15 15:38] VITALS: BP 129/59
--- NOTE | 2018-03-15 16:58 | RAD ---
AP abdomen x-ray History: Abdominal pain with rectal bleeding. Findings: Limited visualization of the lung bases and flanks due to x-ray technique. Mild volume of stool. No dilated bowel loops evident. Pelvic calcifications are nonspecific presumably phleboliths. Bones unremarkable. Impression: No evidence of bowel obstruction. Mild volume of stool.
[2018-03-15] MEDS: risperiDONE 0.5 MG TABLET. PO SCH (20:30)
[2018-03-15] MEDS: MIRTAZAPINE 7.5 MG TABLET. PO SCH (20:30)
--- NOTE | 2018-03-15 20:49 | PDOC ---
Exam Note: Ur Note: Please also refer to the separate dictated note~for this date of service dictated separately.~Patient seen individually. Discussed the patient with Nursing staff reviewed the chart.~Reviewed interim history and current functioning. Reviewed vital signs,~Labs/ Radiology~and current medications noted below. Continue current treatment with the changes noted in the dictated addendum note Assessment: Vital Signs: Vital Signs Date Time Temp Pulse Resp B/P (MAP) Pulse Ox O2 Delivery O2 Flow Rate FiO2 03/15/18 20:30 64 129/59 03/15/18 15:38 96.9 19 97 03/15/18 06:09 Room Air I&O Intake and Output 03/15/18 07:00 Intake Total 720 ml Balance 720 ml Intake Oral 720 ml Current Medications: Meds: Current Medications Acetaminophen (Tylenol) 650 mg PRN Q6HRS PRN PO PAIN / TEMP; Start 03/10/18 at 22:00 Multi-Ingredient Ointment (Analgesic [place]) 1 shira PRN QID PRN TP MUSCLE PAIN; Start 03/10/18 at 22:00 Al Hydroxide/Mg Hydroxide (Mylanta Plus Xs) 15 ml PRN AFTMEALHC PRN PO DYSPEPSIA; Start 03/10/18 at 22:00 Magnesium Hydroxide (Milk Of Magnesia) 2,400 mg PRN QHS PRN PO CONSTIPATION; Start 03/10/18 at 22:00 Donepezil HCl (Aricept) 10 mg DAILY PO Last administered on 03/15/18at 08:01; Start 03/11/18 at 09:00 Mirtazapine (Remeron) 7.5 mg QHS PO Last administered on 03/15/18at 20:30; Start 03/10/18 at 22:30 Olanzapine (ZyPREXA) 2.5 mg PRN Q6HRS PRN PO ANXIETY / AGITATION; Start at 22:15 Melatonin 3 mg PRN QHS PRN PO INSOMNIA; Start 03/10/18 at 22:30 Amlodipine Besylate (Norvasc) 5 mg DAILY PO Last administered on 03/15/18at 08: 01; Start 03/11/18 at 09:00 Aspirin (Aspirin Enteric Coated) 81 mg DAILY PO Last administered on 03/15/18at 08:01; Start 03/11/18 at 09:00 Bisacodyl (Dulcolax Supp) 10 mg PRN DAILY PRN RC CONSTIPATION; Start 03/10/18 at 22:15 Calcium/Vitamin D (Oscal D 500mg/ 200uts) 1 tab DAILY PO Last administered on 08:01; Start 03/11/18 at 09:00 Docusate Sodium (Colace) 100 mg BID PO Last administered on 03/15/18 20:30; Start 03/11/18 at 09:00 Levothyroxine Sodium (Synthroid) 50 mcg DAILYAC PO Last administered on 08:28; Start 03/11/18 at 07:30; Stop 03/12/18 at 11:22; Status DC Ondansetron HCl (Zofran Odt) 4 mg PRN Q6HRS PRN PO NAUSEA/VOMITING; Start 03/10 at 22:15 Polyethylene Glycol (miraLAX) 17 gm DAILY PO Last administered on 03/15/18 08: 01; Start 03/11/18 at 09:00 Propranolol HCl (Inderal) 10 mg TID PO Last administered on 03/15/18 20:30; Start 03/11/18 at 09:00 Potassium Chloride (Klor-Con) 40 meq 1X ONCE PO Last administered on at 23:27; Start 03/10/18 at 23:15; Stop 03/10/18 at 23:22; Status DC Potassium Chloride (Klor-Con) 40 meq 1X ONCE PO Last administered on 02:40; Start 03/11/18 at 03:00; Stop 03/11/18 at 03:02; Status DC Potassium Chloride (Klor-Con) 40 meq 1X ONCE PO Last administered on 05:00; Start 03/11/18 at 05:00; Stop 03/11/18 at 05:01; Status DC Risperidone (RisperDAL) 0.25 mg QHS PO Last administered on 03/12/18 19:40; Start 03/11/18 at 21:00; Stop 03/13/18 at 20:59; Status DC Levothyroxine Sodium (Synthroid) 50 mcg DAILY06 PO Last administered on at 06:08; Start 03/13/18 at 06:00 Risperidone (RisperDAL) 0.5 mg QHS PO Last administered on 03/15/18at 20:30; Start 03/13/18 at 21:00 Fluvoxamine Maleate (Luvox) 25 mg QHS PO Last administered on 03/15/18at 20:30; Start 03/13/18 at 21:00 Active Scripts Active Reported Melatonin 3 Mg Tablet 3 Mg PO PRN QHS PRN Lovenox (Enoxaparin Sodium) 40 Mg/0.4 Ml Disp.syrin 40 Mg SQ DAILY Aspirin Ec (Aspirin) 81 Mg Tablet.dr 81 Mg PO DAILY Levothyroxine Sodium 50 Mcg Tablet 50 Mcg PO DAILYAC Propranolol Hcl 10 Mg Tablet 10 Mg PO TID Polyethylene Glycol 3350 255 Gm Powder 17 Gm PO DAILY Ondansetron Odt (Ondansetron) 4 Mg Tab.rapdis 4 Mg PO PRN Q6HRS PRN Olanzapine 5 Mg Tablet 2.5 Mg PO PRN Q6HRS PRN Mirtazapine 7.5 Mg Tablet 7.5 Mg PO QHS Donepezil Hcl 10 Mg Tablet 10 Mg PO DAILY Docusate Sodium 100 Mg Capsule 100 Mg PO BID Calcium 500 + Vit D 200 Tablet (Calcium Carbonate/Vitamin D3) 1 Each Tablet 1 Each PO DAILY Bisacodyl 10 Mg Supp.rect 10 Mg RC PRN DAILY PRN Amlodipine Besylate 5 Mg Tablet 5 Mg PO DAILY I have reviewed the current psychotropics carefully including drug interactions. Risk benefit ratio favors no change other than as noted in my dictated progress note. Diagnosis: Problems: (1) Anxiety disorder (2) Impulse control disorder (3) Dementia, vascular, with delusions (4) Dementia in Alzheimer's disease with depression (5) Dementia in Alzheimer's disease with delusions LAUREL COUGHLIN MD Mar 15, 2018 20:49
[2018-03-16 06:26] VITALS: BP 120/83
[2018-03-16] MEDS: LEVOTHYROXINE 50 MCG TABLET PO SCH (06:36)
[2018-03-16] MEDS: ASPIRIN ENTERIC COATED 81 MG TABLET.DR. PO SCH (08:39)
[2018-03-16] MEDS: PROPRANOLOL 10 MG TABLET. PO SCH ×3 (08:39→19:42)
[2018-03-16] MEDS: DONEPEZIL HCL 10 MG TABLET PO SCH (08:39)
[2018-03-16] MEDS: DOCUSATE SODIUM 100 MG CAPSULE PO SCH ×2 (08:39→19:41)
[2018-03-16] MEDS: POLYETHYLENE GLYCOL 3350 17 GM PACKET. PO SCH (08:39)
[2018-03-16] MEDS: CALCIUM CARB/VIT D3 500/200 TABLET PO SCH (08:40)
[2018-03-16] MEDS: amLODIPine BESYLATE 5 MG TABLET PO SCH (08:40)
[2018-03-16 14:37] VITALS: BP 90/57
--- NOTE | 2018-03-16 15:31 | PN ---
DATE: 03/14/2018 PSYCHIATRIC PROGRESS NOTE This late entry 03/17/2018, covers elements not covered in my initial note of ____. SUBJECTIVE: I met with the patient in the evening of ____. The patient slept 7-1/2 hours previous evening. She remains quite delusional, psychotic, but ____ not having had bowel movements for 3 months. She is certainly having bowel movements, the nursing staff have called [facility] where she was ____ bowel movements there as well. She has ____ she has colon cancer somewhat sedated at times. REVIEW OF SYSTEMS: No CV, , pulmonary, eye system symptoms on review. MENTAL STATUS EXAM: Oriented to herself. Situation, speech has some latency, coherent. Abstraction fair, computation impaired, language function intact, attention span short. Mood and affect withdrawn. LABORATORY DATA: Reviewed. IMPRESSION: Major depressive disorder with psychotic features; cognitive disorder, unspecified obsessive compulsive disorder. PLAN: Continue current psychotropics. We will adjust the Luvox and Risperdal depending on progress. LAUREL COUGHLIN MD DR: YAKELIN/omar JOB#: [id number] / [id number]
[2018-03-16 16:16] VITALS: BP 114/58
[2018-03-16] MEDS: MIRTAZAPINE 7.5 MG TABLET. PO SCH (19:41)
[2018-03-16] MEDS: MELATONIN 3 MG TABLET PO PRN (19:43)
[2018-03-16] MEDS: risperiDONE 0.5 MG TABLET. PO SCH (19:43)
--- NOTE | 2018-03-16 20:44 | PDOC ---
Exam Note: Ur Note: Please also refer to the separate dictated note~for this date of service dictated separately.~Patient seen individually. Discussed the patient with Nursing staff reviewed the chart.~Reviewed interim history and current functioning. Reviewed vital signs,~Labs/ Radiology~and current medications noted below. Continue current treatment with the changes noted in the dictated addendum note Assessment: Vital Signs: Vital Signs Date Time Temp Pulse Resp B/P (MAP) Pulse Ox O2 Delivery O2 Flow Rate FiO2 03/16/18 19:42 73 114/58 03/16/18 16:16 98.7 16 96 03/16/18 06:26 Room Air I&O Intake and Output 03/16/18 07:00 Intake Total 960 ml Balance 960 ml Intake Oral 960 ml # Voids 1 Current Medications: Meds: Current Medications Acetaminophen (Tylenol) 650 mg PRN Q6HRS PRN PO PAIN / TEMP; Start 03/10/18 at 22:00 Multi-Ingredient Ointment (Analgesic [place]) 1 shira PRN QID PRN TP MUSCLE PAIN; Start 03/10/18 at 22:00 Al Hydroxide/Mg Hydroxide (Mylanta Plus Xs) 15 ml PRN AFTMEALHC PRN PO DYSPEPSIA; Start 03/10/18 at 22:00 Magnesium Hydroxide (Milk Of Magnesia) 2,400 mg PRN QHS PRN PO CONSTIPATION; Start 03/10/18 at 22:00 Donepezil HCl (Aricept) 10 mg DAILY PO Last administered on 03/16/18at 08:39; Start 03/11/18 at 09:00 Mirtazapine (Remeron) 7.5 mg QHS PO Last administered on 03/16/18at 19:41; Start 03/10/18 at 22:30 Olanzapine (ZyPREXA) 2.5 mg PRN Q6HRS PRN PO ANXIETY / AGITATION; Start at 22:15 Melatonin 3 mg PRN QHS PRN PO INSOMNIA Last administered on 03/16/18at 19:43; Start 03/10/18 at 22:30 Amlodipine Besylate (Norvasc) 5 mg DAILY PO Last administered on 03/16/18 08: 40; Start 03/11/18 at 09:00 Aspirin (Aspirin Enteric Coated) 81 mg DAILY PO Last administered on 03/16/18 08:39; Start 03/11/18 at 09:00 Bisacodyl (Dulcolax Supp) 10 mg PRN DAILY PRN RC CONSTIPATION; Start 03/10/18 at 22:15 Calcium/Vitamin D (Oscal D 500mg/ 200uts) 1 tab DAILY PO Last administered on 08:40; Start 03/11/18 at 09:00 Docusate Sodium (Colace) 100 mg BID PO Last administered on 03/16/18 19:41; Start 03/11/18 at 09:00 Levothyroxine Sodium (Synthroid) 50 mcg DAILYAC PO Last administered on 08:28; Start 03/11/18 at 07:30; Stop 03/12/18 at 11:22; Status DC Ondansetron HCl (Zofran Odt) 4 mg PRN Q6HRS PRN PO NAUSEA/VOMITING; Start 03/10 at 22:15 Polyethylene Glycol (miraLAX) 17 gm DAILY PO Last administered on 03/16/18 08: 39; Start 03/11/18 at 09:00 Propranolol HCl (Inderal) 10 mg TID PO Last administered on 03/15/18 20:30; Start 03/11/18 at 09:00 Potassium Chloride (Klor-Con) 40 meq 1X ONCE PO Last administered on 23:27; Start 03/10/18 at 23:15; Stop 03/10/18 at 23:22; Status DC Potassium Chloride (Klor-Con) 40 meq 1X ONCE PO Last administered on 02:40; Start 03/11/18 at 03:00; Stop 03/11/18 at 03:02; Status DC Potassium Chloride (Klor-Con) 40 meq 1X ONCE PO Last administered on at 05:00; Start 03/11/18 at 05:00; Stop 03/11/18 at 05:01; Status DC Risperidone (RisperDAL) 0.25 mg QHS PO Last administered on 03/12/18 19:40; Start 03/11/18 at 21:00; Stop 03/13/18 at 20:59; Status DC Levothyroxine Sodium (Synthroid) 50 mcg DAILY06 PO Last administered on 4/23/ 18at 06:36; Start 03/13/18 at 06:00 Risperidone (RisperDAL) 0.5 mg QHS PO Last administered on 03/16/18at 19:43; Start 03/13/18 at 21:00 Fluvoxamine Maleate (Luvox) 25 mg QHS PO Last administered on 03/15/18at 20:30; Start 03/13/18 at 21:00; Stop 03/16/18 at 18:21; Status DC Fluvoxamine Maleate (Luvox) 50 mg QHS PO Last administered on 03/16/18at 19:41; Start 03/16/18 at 21:00 Active Scripts Active Reported Melatonin 3 Mg Tablet 3 Mg PO PRN QHS PRN Lovenox (Enoxaparin Sodium) 40 Mg/0.4 Ml Disp.syrin 40 Mg SQ DAILY Aspirin Ec (Aspirin) 81 Mg Tablet.dr 81 Mg PO DAILY Levothyroxine Sodium 50 Mcg Tablet 50 Mcg PO DAILYAC Propranolol Hcl 10 Mg Tablet 10 Mg PO TID Polyethylene Glycol 3350 255 Gm Powder 17 Gm PO DAILY Ondansetron Odt (Ondansetron) 4 Mg Tab.rapdis 4 Mg PO PRN Q6HRS PRN Olanzapine 5 Mg Tablet 2.5 Mg PO PRN Q6HRS PRN Mirtazapine 7.5 Mg Tablet 7.5 Mg PO QHS Donepezil Hcl 10 Mg Tablet 10 Mg PO DAILY Docusate Sodium 100 Mg Capsule 100 Mg PO BID Calcium 500 + Vit D 200 Tablet (Calcium Carbonate/Vitamin D3) 1 Each Tablet 1 Each PO DAILY Bisacodyl 10 Mg Supp.rect 10 Mg RC PRN DAILY PRN Amlodipine Besylate 5 Mg Tablet 5 Mg PO DAILY I have reviewed the current psychotropics carefully including drug interactions. Risk benefit ratio favors no change other than as noted in my dictated progress note. Diagnosis: Problems: (1) Anxiety disorder (2) Impulse control disorder (3) Dementia, vascular, with delusions (4) Dementia in Alzheimer's disease with depression (5) Dementia in Alzheimer's disease with delusions LAUREL COUGHLIN MD Mar 16, 2018 20:44
--- NOTE | 2018-03-17 00:48 | PN ---
DATE: 03/14/2018 This is a late entry for 03/14/2018 and covers elements not covered in my initial note of 03/14/2018. I am re-dictating this note because the original note is unclear to [facility]. SUBJECTIVE: The patient was seen individually evening of 03/14/2018. She slept 7-1/2 hours. She remains somewhat delusional, fixated on not having had bowel movement for 3 months despite corroboration from [facility] by nursing staff that she has had regular bowel movements. She is fixated that she has colon cancer and I processed at some length with her. Other than this, no CV, , pulmonary, eye system symptoms on review. MENTAL STATUS EXAM: Oriented to herself and situation. Speech coherent, abstraction fair, computation impaired, language function intact, attention span short. Mood and affect still somewhat withdrawn, at times labile, anxious. LABORATORY DATA: Reviewed. IMPRESSION: Major depressive disorder with psychotic features; major neurocognitive disorder, Alzheimer, vascular with delusion, depression. PLAN: Continue psychotropics as mentioned in my initial note. MAN Carla COUGHLIN MD DR: YAKELIN/omar JOB#: [id number] / [id number]
--- NOTE | 2018-03-17 00:58 | PN ---
DATE: 03/15/2018 This is a late entry for 03/15/2018 and covers elements not covered in my initial note of 03/15/2018. SUBJECTIVE: I met with the patient in the afternoon and this being redictated as requested by chronometer assembler. The patient has been quite withdrawn, obsessed regarding her bowel as before. She has some rectal bleeding, possibly hemorrhoids, we will defer to Dr. Lopez. She is also constipated. We may have a KUB to assist with clarification. No CV, , pulmonary, eye system symptoms on review other than the GI symptoms noted. MENTAL STATUS EXAM: Oriented to herself and situation. Speech has moderate latency, often responses monosyllabic. Abstraction fair, computation impaired, language function intact. Mood and affect withdrawn. LABORATORY DATA: Reviewed. IMPRESSION: Unchanged from initial note. Major depressive disorder with psychotic features; major neurocognitive disorder, Alzheimer, vascular with delusion, depression. PLAN: Continue psychotropics as mentioned in my initial note. MAN Carla COUGHLIN MD DR: YAKELIN/omar JOB#: [id number] / [id number]
[2018-03-17] MEDS: LEVOTHYROXINE 50 MCG TABLET PO SCH (05:47)
[2018-03-17 06:21] VITALS: BP 119/76
[2018-03-17] MEDS: DONEPEZIL HCL 10 MG TABLET PO SCH (09:47)
[2018-03-17] MEDS: amLODIPine BESYLATE 5 MG TABLET PO SCH (09:47)
[2018-03-17] MEDS: ASPIRIN ENTERIC COATED 81 MG TABLET.DR. PO SCH (09:47)
[2018-03-17] MEDS: DOCUSATE SODIUM 100 MG CAPSULE PO SCH ×2 (09:48→19:37)
[2018-03-17] MEDS: CALCIUM CARB/VIT D3 500/200 TABLET PO SCH (09:48)
[2018-03-17] MEDS: PROPRANOLOL 10 MG TABLET. PO SCH ×3 (09:48→19:52)
[2018-03-17] MEDS: POLYETHYLENE GLYCOL 3350 17 GM PACKET. PO SCH (09:49)
[2018-03-17 13:43] VITALS: BP 127/71
[2018-03-17] MEDS: risperiDONE 0.5 MG TABLET. PO SCH (19:37)
[2018-03-17] MEDS: MIRTAZAPINE 7.5 MG TABLET. PO SCH (19:37)
--- NOTE | 2018-03-17 20:43 | PDOC ---
Exam Note: Ru Note: Please also refer to the separate dictated note~for this date of service dictated separately.~Patient seen individually. Discussed the patient with Nursing staff reviewed the chart.~Reviewed interim history and current functioning. Reviewed vital signs,~Labs/ Radiology~and current medications noted below. Continue current treatment with the changes noted in the dictated addendum note Assessment: Vital Signs: Vital Signs Date Time Temp Pulse Resp B/P (MAP) Pulse Ox O2 Delivery O2 Flow Rate FiO2 03/17/18 19:52 68 114/55 03/17/18 06:21 97.4 20 97 03/16/18 06:26 Room Air I&O Intake and Output 03/17/18 07:00 Intake Total 960 ml Balance 960 ml Intake Oral 960 ml Current Medications: Meds: Current Medications Acetaminophen (Tylenol) 650 mg PRN Q6HRS PRN PO PAIN / TEMP; Start 03/10/18 at 22:00 Multi-Ingredient Ointment (Analgesic [place]) 1 shira PRN QID PRN TP MUSCLE PAIN; Start 03/10/18 at 22:00 Al Hydroxide/Mg Hydroxide (Mylanta Plus Xs) 15 ml PRN AFTMEALHC PRN PO DYSPEPSIA; Start 03/10/18 at 22:00 Magnesium Hydroxide (Milk Of Magnesia) 2,400 mg PRN QHS PRN PO CONSTIPATION; Start 03/10/18 at 22:00 Donepezil HCl (Aricept) 10 mg DAILY PO Last administered on 03/17/18 09:47; Start 03/11/18 at 09:00 Mirtazapine (Remeron) 7.5 mg QHS PO Last administered on 03/17/18at 19:37; Start 03/10/18 at 22:30 Olanzapine (ZyPREXA) 2.5 mg PRN Q6HRS PRN PO ANXIETY / AGITATION; Start at 22:15 Melatonin 3 mg PRN QHS PRN PO INSOMNIA Last administered on 03/16/18at 19:43; Start 03/10/18 at 22:30 Amlodipine Besylate (Norvasc) 5 mg DAILY PO Last administered on 03/17/18 09: 47; Start 03/11/18 at 09:00 Aspirin (Aspirin Enteric Coated) 81 mg DAILY PO Last administered on 03/17/18 09:47; Start 03/11/18 at 09:00 Bisacodyl (Dulcolax Supp) 10 mg PRN DAILY PRN RC CONSTIPATION; Start 03/10/18 at 22:15 Calcium/Vitamin D (Oscal D 500mg/ 200uts) 1 tab DAILY PO Last administered on 09:48; Start 03/11/18 at 09:00 Docusate Sodium (Colace) 100 mg BID PO Last administered on 03/17/18 19:37; Start 03/11/18 at 09:00 Levothyroxine Sodium (Synthroid) 50 mcg DAILYAC PO Last administered on 08:28; Start 03/11/18 at 07:30; Stop 03/12/18 at 11:22; Status DC Ondansetron HCl (Zofran Odt) 4 mg PRN Q6HRS PRN PO NAUSEA/VOMITING; Start 03/10 at 22:15 Polyethylene Glycol (miraLAX) 17 gm DAILY PO Last administered on 03/17/18 09: 49; Start 03/11/18 at 09:00 Propranolol HCl (Inderal) 10 mg TID PO Last administered on 03/17/18 19:52; Start 03/11/18 at 09:00 Potassium Chloride (Klor-Con) 40 meq 1X ONCE PO Last administered on 23:27; Start 03/10/18 at 23:15; Stop 03/10/18 at 23:22; Status DC Potassium Chloride (Klor-Con) 40 meq 1X ONCE PO Last administered on 02:40; Start 03/11/18 at 03:00; Stop 03/11/18 at 03:02; Status DC Potassium Chloride (Klor-Con) 40 meq 1X ONCE PO Last administered on 05:00; Start 03/11/18 at 05:00; Stop 03/11/18 at 05:01; Status DC Risperidone (RisperDAL) 0.25 mg QHS PO Last administered on 03/12/18 19:40; Start 03/11/18 at 21:00; Stop 03/13/18 at 20:59; Status DC Levothyroxine Sodium (Synthroid) 50 mcg DAILY06 PO Last administered on 4/24/ 18at 05:47; Start 03/13/18 at 06:00 Risperidone (RisperDAL) 0.5 mg QHS PO Last administered on 03/17/18 19:37; Start 03/13/18 at 21:00 Fluvoxamine Maleate (Luvox) 25 mg QHS PO Last administered on 03/15/18at 20:30; Start 03/13/18 at 21:00; Stop 03/16/18 at 18:21; Status DC Fluvoxamine Maleate (Luvox) 50 mg QHS PO Last administered on 03/17/18at 19:37; Start 03/16/18 at 21:00; Stop 03/19/18 at 20:59 Fluvoxamine Maleate (Luvox) 75 mg QHS PO ; Start 03/19/18 at 21:00 Active Scripts Active Reported Melatonin 3 Mg Tablet 3 Mg PO PRN QHS PRN Lovenox (Enoxaparin Sodium) 40 Mg/0.4 Ml Disp.syrin 40 Mg SQ DAILY Aspirin Ec (Aspirin) 81 Mg Tablet.dr 81 Mg PO DAILY Levothyroxine Sodium 50 Mcg Tablet 50 Mcg PO DAILYAC Propranolol Hcl 10 Mg Tablet 10 Mg PO TID Polyethylene Glycol 3350 255 Gm Powder 17 Gm PO DAILY Ondansetron Odt (Ondansetron) 4 Mg Tab.rapdis 4 Mg PO PRN Q6HRS PRN Olanzapine 5 Mg Tablet 2.5 Mg PO PRN Q6HRS PRN Mirtazapine 7.5 Mg Tablet 7.5 Mg PO QHS Donepezil Hcl 10 Mg Tablet 10 Mg PO DAILY Docusate Sodium 100 Mg Capsule 100 Mg PO BID Calcium 500 + Vit D 200 Tablet (Calcium Carbonate/Vitamin D3) 1 Each Tablet 1 Each PO DAILY Bisacodyl 10 Mg Supp.rect 10 Mg RC PRN DAILY PRN Amlodipine Besylate 5 Mg Tablet 5 Mg PO DAILY I have reviewed the current psychotropics carefully including drug interactions. Risk benefit ratio favors no change other than as noted in my dictated progress note. Diagnosis: Problems: (1) Anxiety disorder (2) Impulse control disorder (3) Dementia, vascular, with delusions (4) Dementia in Alzheimer's disease with depression (5) Dementia in Alzheimer's disease with delusions LAUREL COUGHLIN MD Mar 17, 2018 20:43
--- NOTE | 2018-03-17 22:29 | PN ---
DATE: 03/16/2018 PSYCHIATRIC PROGRESS NOTE This late entry 03/16/2018, covers elements not covered in my initial note 03/16/2018. SUBJECTIVE: I met with the patient evening of 03/16/2018. The patient slept 7-3/4 hours previous evening. She has been somewhat withdrawn, suspicious about her daughter. Still somewhat obsessive. REVIEW OF SYSTEMS: No CV, , pulmonary, eye system symptoms on review. I met with her in her room. MENTAL STATUS EXAM: Oriented to herself and situation. Speech has some latency, coherent. Abstraction fair, computation impaired, language function intact, attention span short. Mood and affect still somewhat withdrawn. No suicidal or homicidal ideation. LABORATORY DATA: Reviewed. IMPRESSION: Unchanged from initial note. PLAN: Increase Luvox to 50 mg a day. Continue rest unchanged from initial note. MAN Carla COUGHLIN MD DR: YAKELIN/omar JOB#: [id number] / [id number]
[2018-03-18 06:24] VITALS: BP 122/62
[2018-03-18] MEDS: LEVOTHYROXINE 50 MCG TABLET PO SCH (06:45)
[2018-03-18] MEDS: POLYETHYLENE GLYCOL 3350 17 GM PACKET. PO SCH (08:05)
[2018-03-18] MEDS: DOCUSATE SODIUM 100 MG CAPSULE PO SCH ×2 (08:06→19:05)
[2018-03-18] MEDS: PROPRANOLOL 10 MG TABLET. PO SCH ×3 (08:06→19:06)
[2018-03-18] MEDS: CALCIUM CARB/VIT D3 500/200 TABLET PO SCH (08:07)
[2018-03-18] MEDS: ASPIRIN ENTERIC COATED 81 MG TABLET.DR. PO SCH (08:07)
[2018-03-18 08:08] LABS: BASO % 0 % (0-3); EOS % 1 % (0-3); HEMATOCRIT 45.2 % (36.0-47.0); HEMOGLOBIN 14.8 g/dL (12.0-15.5); LYMPH # 1.6 x10^3/uL (1.0-4.8); LYMPH % 30 % (24-48); MEAN CORPUSCULAR HEMOGLOBIN 26 pg (25-35); MEAN CORPUSCULAR HGB CONC 33 g/dL (31-37); MEAN CORPUSCULAR VOLUME 80 fL (79-100); MONO # 0.4 x10^3/uL (0.0-1.1); MONO % 8 % (0-9); NEUT # 3.3 x10^3uL (1.8-7.7); NEUT % 61 % (31-73); PLATELET COUNT 317 x10^3/uL (140-400); RED BLOOD COUNT 5.66 x10^6/uL (3.50-5.40); RED CELL DISTRIBUTION WIDTH 15.1 % (11.5-14.5); WHITE BLOOD COUNT 5.4 x10^3/uL (4.0-11.0)
[2018-03-18] MEDS: amLODIPine BESYLATE 5 MG TABLET PO SCH (08:08)
[2018-03-18] MEDS: DONEPEZIL HCL 10 MG TABLET PO SCH (08:08)
[2018-03-18 08:20] LABS: ALBUMIN 2.9 g/dL (3.4-5.0); ALBUMIN/GLOBULIN RATIO 0.8 (1.0-1.7); CALCIUM 8.7 mg/dL (8.5-10.1); CREATININE 0.7 mg/dL (0.6-1.0); GFR 82.3; POTASSIUM 3.9 mmol/L (3.5-5.1); TOTAL BILIRUBIN 0.3 mg/dL (0.2-1.0); TOTAL PROTEIN 6.7 g/dL (6.4-8.2)
[2018-03-18 15:42] VITALS: BP 134/66
[2018-03-18] MEDS: MIRTAZAPINE 7.5 MG TABLET. PO SCH (19:06)
[2018-03-18] MEDS: risperiDONE 0.5 MG TABLET. PO SCH (19:06)
--- NOTE | 2018-03-18 20:20 | PDOC ---
Exam Note: Ru Note: Please also refer to the separate dictated note~for this date of service dictated separately.~Patient seen individually. Discussed the patient with Nursing staff reviewed the chart.~Reviewed interim history and current functioning. Reviewed vital signs,~Labs/ Radiology~and current medications noted below. Continue current treatment with the changes noted in the dictated addendum note Assessment: Vital Signs: Vital Signs Date Time Temp Pulse Resp B/P (MAP) Pulse Ox O2 Delivery O2 Flow Rate FiO2 03/18/18 19:06 60 134/66 03/18/18 15:42 98.3 18 100 03/18/18 06:24 Room Air I&O Intake and Output 03/18/18 07:00 Intake Total 840 ml Balance 840 ml Intake Oral 840 ml Labs: Laboratory Tests Test 03/18/18 07:40 White Blood Count 5.4 x10^3/uL (4.0-11.0) Red Blood Count 5.66 x10^6/uL (3.50-5.40) H Hemoglobin 14.8 g/dL (12.0-15.5) Hematocrit 45.2 % (36.0-47.0) Mean Corpuscular Volume 80 fL (79-100) Mean Corpuscular Hemoglobin 26 pg (25-35) Mean Corpuscular Hemoglobin Concent 33 g/dL (31-37) Red Cell Distribution Width 15.1 % (11.5-14.5) H Platelet Count 317 x10^3/uL (140-400) Neutrophils (%) (Auto) 61 % (31-73) Lymphocytes (%) (Auto) 30 % (24-48) Monocytes (%) (Auto) 8 % (0-9) Eosinophils (%) (Auto) 1 % (0-3) Basophils (%) (Auto) 0 % (0-3) Neutrophils # (Auto) 3.3 x10^3uL (1.8-7.7) Lymphocytes # (Auto) 1.6 x10^3/uL (1.0-4.8) Monocytes # (Auto) 0.4 x10^3/uL (0.0-1.1) Eosinophils # (Auto) 0.0 x10^3/uL (0.0-0.7) Basophils # (Auto) 0.0 x10^3/uL (0.0-0.2) Sodium Level 138 mmol/L (136-145) Potassium Level 3.9 mmol/L (3.5-5.1) Chloride Level 101 mmol/L (98-107) Carbon Dioxide Level 33 mmol/L (21-32) H Anion Gap 4 (6-14) L Blood Urea Nitrogen 18 mg/dL (7-20) Creatinine 0.7 mg/dL (0.6-1.0) Estimated GFR (Cockcroft-Gault) 82.3 BUN/Creatinine Ratio 26 (6-20) H Glucose Level 100 mg/dL (70-99) H Calcium Level 8.7 mg/dL (8.5-10.1) Magnesium Level 2.0 mg/dL (1.8-2.4) Total Bilirubin 0.3 mg/dL (0.2-1.0) Aspartate Amino Transferase (AST) 12 U/L (15-37) L Alanine Aminotransferase (ALT) 17 U/L (14-59) Alkaline Phosphatase 67 U/L (46-116) Total Protein 6.7 g/dL (6.4-8.2) Albumin 2.9 g/dL (3.4-5.0) L Albumin/Globulin Ratio 0.8 (1.0-1.7) L Current Medications: Meds: Current Medications Acetaminophen (Tylenol) 650 mg PRN Q6HRS PRN PO PAIN / TEMP; Start 03/10/18 at 22:00 Multi-Ingredient Ointment (Analgesic [place]) 1 shira PRN QID PRN TP MUSCLE PAIN; Start 03/10/18 at 22:00 Al Hydroxide/Mg Hydroxide (Mylanta Plus Xs) 15 ml PRN AFTMEALHC PRN PO DYSPEPSIA; Start 03/10/18 at 22:00 Magnesium Hydroxide (Milk Of Magnesia) 2,400 mg PRN QHS PRN PO CONSTIPATION; Start 03/10/18 at 22:00 Donepezil HCl (Aricept) 10 mg DAILY PO Last administered on 03/18/18at 08:08; Start 03/11/18 at 09:00 Mirtazapine (Remeron) 7.5 mg QHS PO Last administered on 03/18/18at 19:06; Start 03/10/18 at 22:30 Olanzapine (ZyPREXA) 2.5 mg PRN Q6HRS PRN PO ANXIETY / AGITATION; Start at 22:15 Melatonin 3 mg PRN QHS PRN PO INSOMNIA Last administered on 03/16/18 19:43; Start 03/10/18 at 22:30 Amlodipine Besylate (Norvasc) 5 mg DAILY PO Last administered on 03/18/18 08: 08; Start 03/11/18 at 09:00 Aspirin (Aspirin Enteric Coated) 81 mg DAILY PO Last administered on 03/18/18 08:07; Start 03/11/18 at 09:00 Bisacodyl (Dulcolax Supp) 10 mg PRN DAILY PRN RC CONSTIPATION; Start 03/10/18 at 22:15 Calcium/Vitamin D (Oscal D 500mg/ 200uts) 1 tab DAILY PO Last administered on 08:07; Start 03/11/18 at 09:00 Docusate Sodium (Colace) 100 mg BID PO Last administered on 03/18/18 19:05; Start 03/11/18 at 09:00 Levothyroxine Sodium (Synthroid) 50 mcg DAILYAC PO Last administered on 08:28; Start 03/11/18 at 07:30; Stop 03/12/18 at 11:22; Status DC Ondansetron HCl (Zofran Odt) 4 mg PRN Q6HRS PRN PO NAUSEA/VOMITING; Start 03/10 at 22:15 Polyethylene Glycol (miraLAX) 17 gm DAILY PO Last administered on 03/18/18 08: 05; Start 03/11/18 at 09:00 Propranolol HCl (Inderal) 10 mg TID PO Last administered on 03/18/18 19:06; Start 03/11/18 at 09:00 Potassium Chloride (Klor-Con) 40 meq 1X ONCE PO Last administered on at 23:27; Start 03/10/18 at 23:15; Stop 03/10/18 at 23:22; Status DC Potassium Chloride (Klor-Con) 40 meq 1X ONCE PO Last administered on at 02:40; Start 03/11/18 at 03:00; Stop 03/11/18 at 03:02; Status DC Potassium Chloride (Klor-Con) 40 meq 1X ONCE PO Last administered on at 05:00; Start 03/11/18 at 05:00; Stop 03/11/18 at 05:01; Status DC Risperidone (RisperDAL) 0.25 mg QHS PO Last administered on 03/12/18at 19:40; Start 03/11/18 at 21:00; Stop 03/13/18 at 20:59; Status DC Levothyroxine Sodium (Synthroid) 50 mcg DAILY06 PO Last administered on at 06:45; Start 03/13/18 at 06:00 Risperidone (RisperDAL) 0.5 mg QHS PO Last administered on 03/18/18at 19:06; Start 03/13/18 at 21:00 Fluvoxamine Maleate (Luvox) 25 mg QHS PO Last administered on 03/15/18at 20:30; Start 03/13/18 at 21:00; Stop 03/16/18 at 18:21; Status DC Fluvoxamine Maleate (Luvox) 50 mg QHS PO Last administered on 03/18/18at 19:06; Start 03/16/18 at 21:00; Stop 03/19/18 at 20:59 Fluvoxamine Maleate (Luvox) 75 mg QHS PO ; Start 03/19/18 at 21:00 Active Scripts Active Reported Melatonin 3 Mg Tablet 3 Mg PO PRN QHS PRN Lovenox (Enoxaparin Sodium) 40 Mg/0.4 Ml Disp.syrin 40 Mg SQ DAILY Aspirin Ec (Aspirin) 81 Mg Tablet.dr 81 Mg PO DAILY Levothyroxine Sodium 50 Mcg Tablet 50 Mcg PO DAILYAC Propranolol Hcl 10 Mg Tablet 10 Mg PO TID Polyethylene Glycol 3350 255 Gm Powder 17 Gm PO DAILY Ondansetron Odt (Ondansetron) 4 Mg Tab.rapdis 4 Mg PO PRN Q6HRS PRN Olanzapine 5 Mg Tablet 2.5 Mg PO PRN Q6HRS PRN Mirtazapine 7.5 Mg Tablet 7.5 Mg PO QHS Donepezil Hcl 10 Mg Tablet 10 Mg PO DAILY Docusate Sodium 100 Mg Capsule 100 Mg PO BID Calcium 500 + Vit D 200 Tablet (Calcium Carbonate/Vitamin D3) 1 Each Tablet 1 Each PO DAILY Bisacodyl 10 Mg Supp.rect 10 Mg RC PRN DAILY PRN Amlodipine Besylate 5 Mg Tablet 5 Mg PO DAILY I have reviewed the current psychotropics carefully including drug interactions. Risk benefit ratio favors no change other than as noted in my dictated progress note. Diagnosis: Problems: (1) Anxiety disorder (2) Impulse control disorder (3) Dementia, vascular, with delusions (4) Dementia in Alzheimer's disease with depression (5) Dementia in Alzheimer's disease with delusions LAUREL COUGHLIN MD Mar 18, 2018 20:20
--- NOTE | 2018-03-18 22:02 | PN ---
DATE: 03/17/2018 This is a late entry, 03/17/2018, covers the elements not covered in my initial note, 03/17/2018. SUBJECTIVE: I met with the patient in the evening. The patient slept 7-3/4 hours previous evening, somewhat withdrawn, suspicious. Complains of being sedated on her psychotropics and I addressed this with her at some length. REVIEW OF SYSTEMS: No CV, , pulmonary, eye system symptoms on review. MENTAL STATUS EXAM: Oriented to herself and situation. Speech moderate latency, often response is monosyllabic. Abstraction fair, computation impaired, language function intact, attention span short. Mood and affect somewhat withdrawn. LABORATORY DATA: Reviewed. IMPRESSION: Major depressive disorder with psychotic features; major neurocognitive disorder, early Alzheimer, vascular with delusion, depression. The patient is also very obsessive. We will increase the Luvox to 75 mg at bedtime starting 03/19/2018, after she has been on the 50 mg for 3 days, continue rest unchanged. MAN Carla COUGHLIN MD DR: YAKELIN/omar JOB#: [id number] / [id number]
[2018-03-19] MEDS: LEVOTHYROXINE 50 MCG TABLET PO SCH (05:42)
[2018-03-19 06:10] VITALS: BP 133/65
[2018-03-19 09:25] VITALS: BP 107/72
[2018-03-19] MEDS: CALCIUM CARB/VIT D3 500/200 TABLET PO SCH (09:27)
[2018-03-19] MEDS: ASPIRIN ENTERIC COATED 81 MG TABLET.DR. PO SCH (09:28)
[2018-03-19] MEDS: DONEPEZIL HCL 10 MG TABLET PO SCH (09:28)
[2018-03-19] MEDS: DOCUSATE SODIUM 100 MG CAPSULE PO SCH ×2 (09:28→19:35)
[2018-03-19] MEDS: PROPRANOLOL 10 MG TABLET. PO SCH ×3 (09:28→19:35)
[2018-03-19] MEDS: POLYETHYLENE GLYCOL 3350 17 GM PACKET. PO SCH (09:29)
[2018-03-19] MEDS: amLODIPine BESYLATE 5 MG TABLET PO SCH (09:29)
[2018-03-19 16:16] VITALS: BP 113/61
[2018-03-19] MEDS: MIRTAZAPINE 7.5 MG TABLET. PO SCH (19:35)
[2018-03-19] MEDS: risperiDONE 0.5 MG TABLET. PO SCH (19:35)
--- NOTE | 2018-03-19 21:20 | PDOC ---
Exam Note: Ru Note: Please also refer to the separate dictated note~for this date of service dictated separately.~Patient seen individually. Discussed the patient with Nursing staff reviewed the chart.~Reviewed interim history and current functioning. Reviewed vital signs,~Labs/ Radiology~and current medications noted below. Continue current treatment with the changes noted in the dictated addendum note Assessment: Vital Signs: Vital Signs Date Time Temp Pulse Resp B/P (MAP) Pulse Ox O2 Delivery O2 Flow Rate FiO2 03/19/18 19:35 60 113/61 03/19/18 16:16 98.0 18 98 03/18/18 06:24 Room Air I&O Intake and Output 03/19/18 07:00 Intake Total 600 ml Balance 600 ml Intake Oral 600 ml # Voids 1 Current Medications: Meds: Current Medications Acetaminophen (Tylenol) 650 mg PRN Q6HRS PRN PO PAIN / TEMP; Start 03/10/18 at 22:00 Multi-Ingredient Ointment (Analgesic [place]) 1 shira PRN QID PRN TP MUSCLE PAIN; Start 03/10/18 at 22:00 Al Hydroxide/Mg Hydroxide (Mylanta Plus Xs) 15 ml PRN AFTMEALHC PRN PO DYSPEPSIA; Start 03/10/18 at 22:00 Magnesium Hydroxide (Milk Of Magnesia) 2,400 mg PRN QHS PRN PO CONSTIPATION; Start 03/10/18 at 22:00 Donepezil HCl (Aricept) 10 mg DAILY PO Last administered on 03/19/18at 09:28; Start 03/11/18 at 09:00 Mirtazapine (Remeron) 7.5 mg QHS PO Last administered on 03/19/18at 19:35; Start 03/10/18 at 22:30 Olanzapine (ZyPREXA) 2.5 mg PRN Q6HRS PRN PO ANXIETY / AGITATION; Start at 22:15 Melatonin 3 mg PRN QHS PRN PO INSOMNIA Last administered on 03/16/18at 19:43; Start 03/10/18 at 22:30 Amlodipine Besylate (Norvasc) 5 mg DAILY PO Last administered on 03/19/18at 09: 29; Start 03/11/18 at 09:00 Aspirin (Aspirin Enteric Coated) 81 mg DAILY PO Last administered on 4/26/18at 09:28; Start 03/11/18 at 09:00 Bisacodyl (Dulcolax Supp) 10 mg PRN DAILY PRN RC CONSTIPATION; Start 03/10/18 at 22:15 Calcium/Vitamin D (Oscal D 500mg/ 200uts) 1 tab DAILY PO Last administered on 09:27; Start 03/11/18 at 09:00 Docusate Sodium (Colace) 100 mg BID PO Last administered on 03/19/18 19:35; Start 03/11/18 at 09:00 Levothyroxine Sodium (Synthroid) 50 mcg DAILYAC PO Last administered on 08:28; Start 03/11/18 at 07:30; Stop 03/12/18 at 11:22; Status DC Ondansetron HCl (Zofran Odt) 4 mg PRN Q6HRS PRN PO NAUSEA/VOMITING; Start 03/10 at 22:15 Polyethylene Glycol (miraLAX) 17 gm DAILY PO Last administered on 03/19/18 09: 29; Start 03/11/18 at 09:00 Propranolol HCl (Inderal) 10 mg TID PO Last administered on 03/19/18 19:35; Start 03/11/18 at 09:00 Potassium Chloride (Klor-Con) 40 meq 1X ONCE PO Last administered on 23:27; Start 03/10/18 at 23:15; Stop 03/10/18 at 23:22; Status DC Potassium Chloride (Klor-Con) 40 meq 1X ONCE PO Last administered on 02:40; Start 03/11/18 at 03:00; Stop 03/11/18 at 03:02; Status DC Potassium Chloride (Klor-Con) 40 meq 1X ONCE PO Last administered on 05:00; Start 03/11/18 at 05:00; Stop 03/11/18 at 05:01; Status DC Risperidone (RisperDAL) 0.25 mg QHS PO Last administered on 03/12/18 19:40; Start 03/11/18 at 21:00; Stop 03/13/18 at 20:59; Status DC Levothyroxine Sodium (Synthroid) 50 mcg DAILY06 PO Last administered on 4/26/ 18at 05:42; Start 03/13/18 at 06:00 Risperidone (RisperDAL) 0.5 mg QHS PO Last administered on 03/19/18at 19:35; Start 03/13/18 at 21:00 Fluvoxamine Maleate (Luvox) 25 mg QHS PO Last administered on 03/15/18at 20:30; Start 03/13/18 at 21:00; Stop 03/16/18 at 18:21; Status DC Fluvoxamine Maleate (Luvox) 50 mg QHS PO Last administered on 03/18/18at 19:06; Start 03/16/18 at 21:00; Stop 03/19/18 at 20:59; Status DC Fluvoxamine Maleate (Luvox) 75 mg QHS PO Last administered on 03/19/18at 19:37; Start 03/19/18 at 21:00 Active Scripts Active Reported Melatonin 3 Mg Tablet 3 Mg PO PRN QHS PRN Lovenox (Enoxaparin Sodium) 40 Mg/0.4 Ml Disp.syrin 40 Mg SQ DAILY Aspirin Ec (Aspirin) 81 Mg Tablet.dr 81 Mg PO DAILY Levothyroxine Sodium 50 Mcg Tablet 50 Mcg PO DAILYAC Propranolol Hcl 10 Mg Tablet 10 Mg PO TID Polyethylene Glycol 3350 255 Gm Powder 17 Gm PO DAILY Ondansetron Odt (Ondansetron) 4 Mg Tab.rapdis 4 Mg PO PRN Q6HRS PRN Olanzapine 5 Mg Tablet 2.5 Mg PO PRN Q6HRS PRN Mirtazapine 7.5 Mg Tablet 7.5 Mg PO QHS Donepezil Hcl 10 Mg Tablet 10 Mg PO DAILY Docusate Sodium 100 Mg Capsule 100 Mg PO BID Calcium 500 + Vit D 200 Tablet (Calcium Carbonate/Vitamin D3) 1 Each Tablet 1 Each PO DAILY Bisacodyl 10 Mg Supp.rect 10 Mg RC PRN DAILY PRN Amlodipine Besylate 5 Mg Tablet 5 Mg PO DAILY I have reviewed the current psychotropics carefully including drug interactions. Risk benefit ratio favors no change other than as noted in my dictated progress note. Diagnosis: Problems: (1) Anxiety disorder (2) Impulse control disorder (3) Dementia, vascular, with delusions (4) Dementia in Alzheimer's disease with depression (5) Dementia in Alzheimer's disease with delusions LAUREL COUGHLIN MD Mar 19, 2018 21:20
[2018-03-20] MEDS: LEVOTHYROXINE 50 MCG TABLET PO SCH (05:51)
[2018-03-20 06:05] VITALS: BP 112/54
[2018-03-20] MEDS: PROPRANOLOL 10 MG TABLET. PO SCH ×4 (09:00→19:51)
[2018-03-20 09:19] VITALS: BP 143/78
[2018-03-20] MEDS: DONEPEZIL HCL 10 MG TABLET PO SCH (09:19)
[2018-03-20] MEDS: ASPIRIN ENTERIC COATED 81 MG TABLET.DR. PO SCH (09:19)
[2018-03-20] MEDS: POLYETHYLENE GLYCOL 3350 17 GM PACKET. PO SCH (09:19)
[2018-03-20] MEDS: amLODIPine BESYLATE 5 MG TABLET PO SCH (09:20)
[2018-03-20] MEDS: DOCUSATE SODIUM 100 MG CAPSULE PO SCH ×2 (09:20→19:51)
[2018-03-20] MEDS: CALCIUM CARB/VIT D3 500/200 TABLET PO SCH (09:20)
[2018-03-20 14:47] VITALS: BP 112/60
[2018-03-20 16:36] VITALS: BP 128/82
[2018-03-20] MEDS: risperiDONE 0.5 MG TABLET. PO SCH (19:50)
[2018-03-20] MEDS: MIRTAZAPINE 7.5 MG TABLET. PO SCH (19:50)
--- NOTE | 2018-03-20 23:07 | PDOC ---
Exam Note: Ru Note: Please also refer to the separate dictated note~for this date of service dictated separately.~Patient seen individually. Discussed the patient with Nursing staff reviewed the chart.~Reviewed interim history and current functioning. Reviewed vital signs,~Labs/ Radiology~and current medications noted below. Continue current treatment with the changes noted in the dictated addendum note Assessment: Vital Signs: Vital Signs Date Time Temp Pulse Resp B/P (MAP) Pulse Ox O2 Delivery O2 Flow Rate FiO2 03/20/18 19:51 78 128/82 03/20/18 16:36 97.6 16 99 03/18/18 06:24 Room Air I&O Intake and Output 03/20/18 07:00 Intake Total 840 ml Balance 840 ml Intake Oral 840 ml Current Medications: Meds: Current Medications Acetaminophen (Tylenol) 650 mg PRN Q6HRS PRN PO PAIN / TEMP; Start 03/10/18 at 22:00 Multi-Ingredient Ointment (Analgesic [place]) 1 shira PRN QID PRN TP MUSCLE PAIN; Start 03/10/18 at 22:00 Al Hydroxide/Mg Hydroxide (Mylanta Plus Xs) 15 ml PRN AFTMEALHC PRN PO DYSPEPSIA; Start 03/10/18 at 22:00 Magnesium Hydroxide (Milk Of Magnesia) 2,400 mg PRN QHS PRN PO CONSTIPATION; Start 03/10/18 at 22:00 Donepezil HCl (Aricept) 10 mg DAILY PO Last administered on 03/20/18 09:19; Start 03/11/18 at 09:00 Mirtazapine (Remeron) 7.5 mg QHS PO Last administered on 03/20/18at 19:50; Start 03/10/18 at 22:30 Olanzapine (ZyPREXA) 2.5 mg PRN Q6HRS PRN PO ANXIETY / AGITATION; Start at 22:15 Melatonin 3 mg PRN QHS PRN PO INSOMNIA Last administered on 03/16/18at 19:43; Start 03/10/18 at 22:30 Amlodipine Besylate (Norvasc) 5 mg DAILY PO Last administered on 03/20/18 09: 20; Start 03/11/18 at 09:00 Aspirin (Aspirin Enteric Coated) 81 mg DAILY PO Last administered on 03/20/18 09:19; Start 03/11/18 at 09:00 Bisacodyl (Dulcolax Supp) 10 mg PRN DAILY PRN RC CONSTIPATION; Start 03/10/18 at 22:15 Calcium/Vitamin D (Oscal D 500mg/ 200uts) 1 tab DAILY PO Last administered on 09:20; Start 03/11/18 at 09:00 Docusate Sodium (Colace) 100 mg BID PO Last administered on 03/20/18 19:51; Start 03/11/18 at 09:00 Levothyroxine Sodium (Synthroid) 50 mcg DAILYAC PO Last administered on 08:28; Start 03/11/18 at 07:30; Stop 03/12/18 at 11:22; Status DC Ondansetron HCl (Zofran Odt) 4 mg PRN Q6HRS PRN PO NAUSEA/VOMITING; Start 03/10 at 22:15 Polyethylene Glycol (miraLAX) 17 gm DAILY PO Last administered on 03/20/18 09: 19; Start 03/11/18 at 09:00 Propranolol HCl (Inderal) 10 mg TID PO Last administered on 03/20/18 19:51; Start 03/11/18 at 09:00 Potassium Chloride (Klor-Con) 40 meq 1X ONCE PO Last administered on 23:27; Start 03/10/18 at 23:15; Stop 03/10/18 at 23:22; Status DC Potassium Chloride (Klor-Con) 40 meq 1X ONCE PO Last administered on 02:40; Start 03/11/18 at 03:00; Stop 03/11/18 at 03:02; Status DC Potassium Chloride (Klor-Con) 40 meq 1X ONCE PO Last administered on 05:00; Start 03/11/18 at 05:00; Stop 03/11/18 at 05:01; Status DC Risperidone (RisperDAL) 0.25 mg QHS PO Last administered on 03/12/18 19:40; Start 03/11/18 at 21:00; Stop 03/13/18 at 20:59; Status DC Levothyroxine Sodium (Synthroid) 50 mcg DAILY06 PO Last administered on 4/27/ 18at 05:51; Start 03/13/18 at 06:00 Risperidone (RisperDAL) 0.5 mg QHS PO Last administered on 03/20/18at 19:50; Start 03/13/18 at 21:00 Fluvoxamine Maleate (Luvox) 25 mg QHS PO Last administered on 03/15/18at 20:30; Start 03/13/18 at 21:00; Stop 03/16/18 at 18:21; Status DC Fluvoxamine Maleate (Luvox) 50 mg QHS PO Last administered on 03/18/18at 19:06; Start 03/16/18 at 21:00; Stop 03/19/18 at 20:59; Status DC Fluvoxamine Maleate (Luvox) 75 mg QHS PO Last administered on 03/20/18at 19:50; Start 03/19/18 at 21:00 Active Scripts Active Reported Melatonin 3 Mg Tablet 3 Mg PO PRN QHS PRN Lovenox (Enoxaparin Sodium) 40 Mg/0.4 Ml Disp.syrin 40 Mg SQ DAILY Aspirin Ec (Aspirin) 81 Mg Tablet.dr 81 Mg PO DAILY Levothyroxine Sodium 50 Mcg Tablet 50 Mcg PO DAILYAC Propranolol Hcl 10 Mg Tablet 10 Mg PO TID Polyethylene Glycol 3350 255 Gm Powder 17 Gm PO DAILY Ondansetron Odt (Ondansetron) 4 Mg Tab.rapdis 4 Mg PO PRN Q6HRS PRN Olanzapine 5 Mg Tablet 2.5 Mg PO PRN Q6HRS PRN Mirtazapine 7.5 Mg Tablet 7.5 Mg PO QHS Donepezil Hcl 10 Mg Tablet 10 Mg PO DAILY Docusate Sodium 100 Mg Capsule 100 Mg PO BID Calcium 500 + Vit D 200 Tablet (Calcium Carbonate/Vitamin D3) 1 Each Tablet 1 Each PO DAILY Bisacodyl 10 Mg Supp.rect 10 Mg RC PRN DAILY PRN Amlodipine Besylate 5 Mg Tablet 5 Mg PO DAILY I have reviewed the current psychotropics carefully including drug interactions. Risk benefit ratio favors no change other than as noted in my dictated progress note. Diagnosis: Problems: (1) Anxiety disorder (2) Impulse control disorder (3) Dementia, vascular, with delusions (4) Dementia in Alzheimer's disease with depression (5) Dementia in Alzheimer's disease with delusions LAUREL COUGHLIN MD Mar 20, 2018 23:07
[2018-03-21] MEDS: LEVOTHYROXINE 50 MCG TABLET PO SCH (06:23)
[2018-03-21 06:50] VITALS: BP 121/55
[2018-03-21] MEDS: amLODIPine BESYLATE 5 MG TABLET PO SCH (09:00)
[2018-03-21] MEDS: PROPRANOLOL 10 MG TABLET. PO SCH ×3 (09:00→21:34)
[2018-03-21] MEDS: POLYETHYLENE GLYCOL 3350 17 GM PACKET. PO SCH (10:03)
[2018-03-21] MEDS: DOCUSATE SODIUM 100 MG CAPSULE PO SCH ×2 (10:03→21:34)
[2018-03-21] MEDS: ASPIRIN ENTERIC COATED 81 MG TABLET.DR. PO SCH (10:03)
[2018-03-21] MEDS: DONEPEZIL HCL 10 MG TABLET PO SCH (10:03)
[2018-03-21] MEDS: CALCIUM CARB/VIT D3 500/200 TABLET PO SCH (10:03)
--- NOTE | 2018-03-21 11:06 | PN ---
DATE: 03/18/2018 This late entry 03/18/2018 covers elements not covered in my initial note 03/18/2018. Met with the patient in the evening of 03/18/2018. Overall, the patient appears less paranoid. Has not been agitated, aggressive. She has come out to the day room, gets upset with her roommate. Her daughter visited and we will check with her daughter on how she perceives the patient's paranoia on a longitudinal basis. No CV, , pulmonary, eye system symptoms on review. MENTAL STATUS EXAM: Oriented to herself and situation. Speech has some latency, coherent. Abstraction fair, computation impaired, language function intact, attention span short. Mood and affect still withdrawn, but showing improvement, less psychotic, less depressed. LABORATORY DATA: Reviewed. IMPRESSION: Major depressive disorder with psychotic features; cognitive disorder, unspecified. PLAN: Continue psychotropics mentioned in my initial note. LAUREL COUGHLIN MD DR: YAKELIN/omar JOB#: [id number] / [id number]
[2018-03-21 13:35] VITALS: BP 108/51
[2018-03-21 17:52] VITALS: BP 110/67
--- NOTE | 2018-03-21 18:49 | PN ---
DATE: 03/19/2018 This is a late entry for 03/19/2018 and covers the elements not covered in my initial note of 03/19/2018. SUBJECTIVE: The patient was staffed in the morning with the entire team and seen individually in the evening. She is sleeping about 7 hours. Resistive to medications, but less paranoid, quite withdrawn, appetite 50%. Her history reveals she was always health conscious in her premorbid years and since the mental illness, she has been quite oblivious of her health concerns as far as weight and keeping up with herself. This does seem to be consistent with her diagnosis. REVIEW OF SYSTEMS: No CV, , pulmonary, eye, ENT system symptoms on review. MENTAL STATUS EXAM: Oriented to herself and situation. Speech is coherent, has some latency, abstraction fair, computation impaired, language function intact. Mood and affect somewhat withdrawn. LABORATORY DATA: Reviewed. IMPRESSION: Major depressive disorder with psychotic features. Rest unchanged. PLAN: Continue psychotropics mentioned in my initial note. MAN Carla COUGHLIN MD DR: YAKELIN/omar JOB#: [id number] / [id number]
[2018-03-21] MEDS: risperiDONE 0.5 MG TABLET. PO SCH (21:33)
[2018-03-21] MEDS: MIRTAZAPINE 7.5 MG TABLET. PO SCH (21:34)
--- NOTE | 2018-03-21 22:44 | PDOC ---
Exam Note: Ru Note: Please also refer to the separate dictated note~for this date of service dictated separately.~Patient seen individually. Discussed the patient with Nursing staff reviewed the chart.~Reviewed interim history and current functioning. Reviewed vital signs,~Labs/ Radiology~and current medications noted below. Continue current treatment with the changes noted in the dictated addendum note Assessment: Vital Signs: Vital Signs Date Time Temp Pulse Resp B/P (MAP) Pulse Ox O2 Delivery O2 Flow Rate FiO2 03/21/18 21:34 68 110/67 03/21/18 17:52 97.3 20 96 03/18/18 06:24 Room Air I&O Intake and Output 03/21/18 07:00 Intake Total 720 ml Balance 720 ml Intake Oral 720 ml Current Medications: Meds: Current Medications Acetaminophen (Tylenol) 650 mg PRN Q6HRS PRN PO PAIN / TEMP; Start 03/10/18 at 22:00 Multi-Ingredient Ointment (Analgesic [place]) 1 shira PRN QID PRN TP MUSCLE PAIN; Start 03/10/18 at 22:00 Al Hydroxide/Mg Hydroxide (Mylanta Plus Xs) 15 ml PRN AFTMEALHC PRN PO DYSPEPSIA; Start 03/10/18 at 22:00 Magnesium Hydroxide (Milk Of Magnesia) 2,400 mg PRN QHS PRN PO CONSTIPATION; Start 03/10/18 at 22:00 Donepezil HCl (Aricept) 10 mg DAILY PO Last administered on 03/21/18at 10:03; Start 03/11/18 at 09:00 Mirtazapine (Remeron) 7.5 mg QHS PO Last administered on 03/21/18at 21:34; Start 03/10/18 at 22:30 Olanzapine (ZyPREXA) 2.5 mg PRN Q6HRS PRN PO ANXIETY / AGITATION; Start at 22:15 Melatonin 3 mg PRN QHS PRN PO INSOMNIA Last administered on 03/16/18at 19:43; Start 03/10/18 at 22:30 Amlodipine Besylate (Norvasc) 5 mg DAILY PO Last administered on 03/20/18at 09: 20; Start 03/11/18 at 09:00 Aspirin (Aspirin Enteric Coated) 81 mg DAILY PO Last administered on 03/21/18at 10:03; Start 03/11/18 at 09:00 Bisacodyl (Dulcolax Supp) 10 mg PRN DAILY PRN RC CONSTIPATION; Start 03/10/18 at 22:15 Calcium/Vitamin D (Oscal D 500mg/ 200uts) 1 tab DAILY PO Last administered on 10:03; Start 03/11/18 at 09:00 Docusate Sodium (Colace) 100 mg BID PO Last administered on 03/21/18 21:34; Start 03/11/18 at 09:00 Levothyroxine Sodium (Synthroid) 50 mcg DAILYAC PO Last administered on 08:28; Start 03/11/18 at 07:30; Stop 03/12/18 at 11:22; Status DC Ondansetron HCl (Zofran Odt) 4 mg PRN Q6HRS PRN PO NAUSEA/VOMITING; Start 03/10 at 22:15 Polyethylene Glycol (miraLAX) 17 gm DAILY PO Last administered on 03/21/18 10: 03; Start 03/11/18 at 09:00 Propranolol HCl (Inderal) 10 mg TID PO Last administered on 03/21/18 21:34; Start 03/11/18 at 09:00 Potassium Chloride (Klor-Con) 40 meq 1X ONCE PO Last administered on at 23:27; Start 03/10/18 at 23:15; Stop 03/10/18 at 23:22; Status DC Potassium Chloride (Klor-Con) 40 meq 1X ONCE PO Last administered on at 02:40; Start 03/11/18 at 03:00; Stop 03/11/18 at 03:02; Status DC Potassium Chloride (Klor-Con) 40 meq 1X ONCE PO Last administered on at 05:00; Start 03/11/18 at 05:00; Stop 03/11/18 at 05:01; Status DC Risperidone (RisperDAL) 0.25 mg QHS PO Last administered on 03/12/18at 19:40; Start 03/11/18 at 21:00; Stop 03/13/18 at 20:59; Status DC Levothyroxine Sodium (Synthroid) 50 mcg DAILY06 PO Last administered on 4/28/ 18at 06:23; Start 03/13/18 at 06:00 Risperidone (RisperDAL) 0.5 mg QHS PO Last administered on 03/21/18at 21:33; Start 03/13/18 at 21:00 Fluvoxamine Maleate (Luvox) 25 mg QHS PO Last administered on 03/15/18at 20:30; Start 03/13/18 at 21:00; Stop 03/16/18 at 18:21; Status DC Fluvoxamine Maleate (Luvox) 50 mg QHS PO Last administered on 03/18/18at 19:06; Start 03/16/18 at 21:00; Stop 03/19/18 at 20:59; Status DC Fluvoxamine Maleate (Luvox) 75 mg QHS PO Last administered on 03/21/18at 21:34; Start 03/19/18 at 21:00 Active Scripts Active Reported Melatonin 3 Mg Tablet 3 Mg PO PRN QHS PRN Lovenox (Enoxaparin Sodium) 40 Mg/0.4 Ml Disp.syrin 40 Mg SQ DAILY Aspirin Ec (Aspirin) 81 Mg Tablet.dr 81 Mg PO DAILY Levothyroxine Sodium 50 Mcg Tablet 50 Mcg PO DAILYAC Propranolol Hcl 10 Mg Tablet 10 Mg PO TID Polyethylene Glycol 3350 255 Gm Powder 17 Gm PO DAILY Ondansetron Odt (Ondansetron) 4 Mg Tab.rapdis 4 Mg PO PRN Q6HRS PRN Olanzapine 5 Mg Tablet 2.5 Mg PO PRN Q6HRS PRN Mirtazapine 7.5 Mg Tablet 7.5 Mg PO QHS Donepezil Hcl 10 Mg Tablet 10 Mg PO DAILY Docusate Sodium 100 Mg Capsule 100 Mg PO BID Calcium 500 + Vit D 200 Tablet (Calcium Carbonate/Vitamin D3) 1 Each Tablet 1 Each PO DAILY Bisacodyl 10 Mg Supp.rect 10 Mg RC PRN DAILY PRN Amlodipine Besylate 5 Mg Tablet 5 Mg PO DAILY I have reviewed the current psychotropics carefully including drug interactions. Risk benefit ratio favors no change other than as noted in my dictated progress note. Diagnosis: Problems: (1) Anxiety disorder (2) Impulse control disorder (3) Dementia, vascular, with delusions (4) Dementia in Alzheimer's disease with depression (5) Dementia in Alzheimer's disease with delusions LAUREL COUGHLIN MD Mar 21, 2018 22:44
[2018-03-22] MEDS: LEVOTHYROXINE 50 MCG TABLET PO SCH (06:08)
[2018-03-22 06:30] VITALS: BP 147/68
[2018-03-22] MEDS: PROPRANOLOL 10 MG TABLET. PO SCH ×3 (09:00→20:04)
[2018-03-22] MEDS: DOCUSATE SODIUM 100 MG CAPSULE PO SCH ×2 (09:44→20:04)
[2018-03-22] MEDS: ASPIRIN ENTERIC COATED 81 MG TABLET.DR. PO SCH (09:44)
[2018-03-22] MEDS: DONEPEZIL HCL 10 MG TABLET PO SCH (09:44)
[2018-03-22] MEDS: POLYETHYLENE GLYCOL 3350 17 GM PACKET. PO SCH (09:45)
[2018-03-22] MEDS: amLODIPine BESYLATE 5 MG TABLET PO SCH (09:45)
[2018-03-22] MEDS: CALCIUM CARB/VIT D3 500/200 TABLET PO SCH (09:45)
[2018-03-22 13:02] VITALS: BP 121/69
[2018-03-22 16:25] VITALS: BP 123/81
[2018-03-22] MEDS: risperiDONE 0.5 MG TABLET. PO SCH (20:04)
[2018-03-22] MEDS: MIRTAZAPINE 7.5 MG TABLET. PO SCH (20:05)
--- NOTE | 2018-03-22 22:29 | PDOC ---
Exam Note: Ru Note: Please also refer to the separate dictated note~for this date of service dictated separately.~Patient seen individually. Discussed the patient with Nursing staff reviewed the chart.~Reviewed interim history and current functioning. Reviewed vital signs,~Labs/ Radiology~and current medications noted below. Continue current treatment with the changes noted in the dictated addendum note Assessment: Vital Signs: Vital Signs Date Time Temp Pulse Resp B/P (MAP) Pulse Ox O2 Delivery O2 Flow Rate FiO2 03/22/18 20:04 61 123/81 03/22/18 16:25 97.3 16 97 03/18/18 06:24 Room Air I&O Intake and Output 03/22/18 07:00 Intake Total 650 ml Balance 650 ml Intake Oral 650 ml Current Medications: Meds: Current Medications Acetaminophen (Tylenol) 650 mg PRN Q6HRS PRN PO PAIN / TEMP; Start 03/10/18 at 22:00 Multi-Ingredient Ointment (Analgesic [place]) 1 shira PRN QID PRN TP MUSCLE PAIN; Start 03/10/18 at 22:00 Al Hydroxide/Mg Hydroxide (Mylanta Plus Xs) 15 ml PRN AFTMEALHC PRN PO DYSPEPSIA; Start 03/10/18 at 22:00 Magnesium Hydroxide (Milk Of Magnesia) 2,400 mg PRN QHS PRN PO CONSTIPATION; Start 03/10/18 at 22:00 Donepezil HCl (Aricept) 10 mg DAILY PO Last administered on 03/22/18at 09:44; Start 03/11/18 at 09:00 Mirtazapine (Remeron) 7.5 mg QHS PO Last administered on 03/22/18at 20:05; Start 03/10/18 at 22:30 Olanzapine (ZyPREXA) 2.5 mg PRN Q6HRS PRN PO ANXIETY / AGITATION; Start at 22:15 Melatonin 3 mg PRN QHS PRN PO INSOMNIA Last administered on 03/16/18at 19:43; Start 03/10/18 at 22:30 Amlodipine Besylate (Norvasc) 5 mg DAILY PO Last administered on 03/22/18 09: 45; Start 03/11/18 at 09:00 Aspirin (Aspirin Enteric Coated) 81 mg DAILY PO Last administered on 4/29/18at 09:44; Start 03/11/18 at 09:00 Bisacodyl (Dulcolax Supp) 10 mg PRN DAILY PRN RC CONSTIPATION; Start 03/10/18 at 22:15 Calcium/Vitamin D (Oscal D 500mg/ 200uts) 1 tab DAILY PO Last administered on 09:45; Start 03/11/18 at 09:00 Docusate Sodium (Colace) 100 mg BID PO Last administered on 03/22/18 20:04; Start 03/11/18 at 09:00 Levothyroxine Sodium (Synthroid) 50 mcg DAILYAC PO Last administered on 08:28; Start 03/11/18 at 07:30; Stop 03/12/18 at 11:22; Status DC Ondansetron HCl (Zofran Odt) 4 mg PRN Q6HRS PRN PO NAUSEA/VOMITING; Start 03/10 at 22:15 Polyethylene Glycol (miraLAX) 17 gm DAILY PO Last administered on 03/22/18 09: 45; Start 03/11/18 at 09:00 Propranolol HCl (Inderal) 10 mg TID PO Last administered on 03/22/18 20:04; Start 03/11/18 at 09:00 Potassium Chloride (Klor-Con) 40 meq 1X ONCE PO Last administered on 23:27; Start 03/10/18 at 23:15; Stop 03/10/18 at 23:22; Status DC Potassium Chloride (Klor-Con) 40 meq 1X ONCE PO Last administered on at 02:40; Start 03/11/18 at 03:00; Stop 03/11/18 at 03:02; Status DC Potassium Chloride (Klor-Con) 40 meq 1X ONCE PO Last administered on at 05:00; Start 03/11/18 at 05:00; Stop 03/11/18 at 05:01; Status DC Risperidone (RisperDAL) 0.25 mg QHS PO Last administered on 03/12/18at 19:40; Start 03/11/18 at 21:00; Stop 03/13/18 at 20:59; Status DC Levothyroxine Sodium (Synthroid) 50 mcg DAILY06 PO Last administered on 4/29/ 18at 06:08; Start 03/13/18 at 06:00 Risperidone (RisperDAL) 0.5 mg QHS PO Last administered on 03/22/18at 20:04; Start 03/13/18 at 21:00 Fluvoxamine Maleate (Luvox) 25 mg QHS PO Last administered on 03/15/18at 20:30; Start 03/13/18 at 21:00; Stop 03/16/18 at 18:21; Status DC Fluvoxamine Maleate (Luvox) 50 mg QHS PO Last administered on 03/18/18at 19:06; Start 03/16/18 at 21:00; Stop 03/19/18 at 20:59; Status DC Fluvoxamine Maleate (Luvox) 75 mg QHS PO Last administered on 03/22/18at 20:05; Start 03/19/18 at 21:00 Active Scripts Active Reported Melatonin 3 Mg Tablet 3 Mg PO PRN QHS PRN Lovenox (Enoxaparin Sodium) 40 Mg/0.4 Ml Disp.syrin 40 Mg SQ DAILY Aspirin Ec (Aspirin) 81 Mg Tablet.dr 81 Mg PO DAILY Levothyroxine Sodium 50 Mcg Tablet 50 Mcg PO DAILYAC Propranolol Hcl 10 Mg Tablet 10 Mg PO TID Polyethylene Glycol 3350 255 Gm Powder 17 Gm PO DAILY Ondansetron Odt (Ondansetron) 4 Mg Tab.rapdis 4 Mg PO PRN Q6HRS PRN Olanzapine 5 Mg Tablet 2.5 Mg PO PRN Q6HRS PRN Mirtazapine 7.5 Mg Tablet 7.5 Mg PO QHS Donepezil Hcl 10 Mg Tablet 10 Mg PO DAILY Docusate Sodium 100 Mg Capsule 100 Mg PO BID Calcium 500 + Vit D 200 Tablet (Calcium Carbonate/Vitamin D3) 1 Each Tablet 1 Each PO DAILY Bisacodyl 10 Mg Supp.rect 10 Mg RC PRN DAILY PRN Amlodipine Besylate 5 Mg Tablet 5 Mg PO DAILY I have reviewed the current psychotropics carefully including drug interactions. Risk benefit ratio favors no change other than as noted in my dictated progress note. Diagnosis: Problems: (1) Anxiety disorder (2) Impulse control disorder (3) Dementia, vascular, with delusions (4) Dementia in Alzheimer's disease with depression (5) Dementia in Alzheimer's disease with delusions LAUREL COUGHLIN MD Mar 22, 2018 22:29
--- NOTE | 2018-03-23 00:39 | PN ---
DATE: 03/20/2018 This is a late entry, 03/20/2018, covers the elements not covered in my initial note, 03/20/2018. SUBJECTIVE: I met with the patient in the evening. The patient slept 9-3/4 hours. She is upset because her roommate snores, keeps her up at night, was sleeping well per nursing observation. She is more forthcoming about her bowel movements, less obsessed for not having these and said she had one the day before. REVIEW OF SYSTEMS: No CV, , pulmonary, eye system symptoms on review. MENTAL STATUS EXAM: Oriented to herself and situation. Speech moderate latency, coherent. Abstraction fair, computation impaired, language function intact. Mood and affect appears less withdrawn, less anxious, less paranoid. No suicidal or homicidal ideation. LABORATORY DATA: Reviewed. IMPRESSION: Unchanged from initial note. PLAN: Continue current psychotropics. Adjust as indicated. MAN Carla COUGHLIN MD DR: YAKELIN/omar JOB#: [id number] / [id number]
[2018-03-23] MEDS: LEVOTHYROXINE 50 MCG TABLET PO SCH (06:03)
[2018-03-23 06:23] VITALS: BP 110/62
[2018-03-23 09:16] LABS: BASO % 0 % (0-3); EOS % 0 % (0-3); HEMATOCRIT 39.5 % (36.0-47.0); HEMOGLOBIN 12.9 g/dL (12.0-15.5); LYMPH # 1.6 x10^3/uL (1.0-4.8); LYMPH % 24 % (24-48); MEAN CORPUSCULAR HEMOGLOBIN 26 pg (25-35); MEAN CORPUSCULAR HGB CONC 33 g/dL (31-37); MEAN CORPUSCULAR VOLUME 79 fL (79-100); MONO # 0.5 x10^3/uL (0.0-1.1); MONO % 8 % (0-9); NEUT # 4.7 x10^3uL (1.8-7.7); NEUT % 68 % (31-73); PLATELET COUNT 270 x10^3/uL (140-400); RED BLOOD COUNT 4.99 x10^6/uL (3.50-5.40); RED CELL DISTRIBUTION WIDTH 14.9 % (11.5-14.5); WHITE BLOOD COUNT 6.9 x10^3/uL (4.0-11.0)
[2018-03-23 09:27] LABS: ALBUMIN 2.5 g/dL (3.4-5.0); ALBUMIN/GLOBULIN RATIO 0.7 (1.0-1.7); CALCIUM 8.5 mg/dL (8.5-10.1); CREATININE 0.7 mg/dL (0.6-1.0); GFR 82.3; POTASSIUM 3.8 mmol/L (3.5-5.1); TOTAL BILIRUBIN 0.2 mg/dL (0.2-1.0)
[2018-03-23] MEDS: DOCUSATE SODIUM 100 MG CAPSULE PO SCH ×2 (09:30→21:14)
[2018-03-23] MEDS: CALCIUM CARB/VIT D3 500/200 TABLET PO SCH (09:30)
[2018-03-23] MEDS: amLODIPine BESYLATE 5 MG TABLET PO SCH (09:30)
[2018-03-23] MEDS: ASPIRIN ENTERIC COATED 81 MG TABLET.DR. PO SCH (09:30)
[2018-03-23] MEDS: PROPRANOLOL 10 MG TABLET. PO SCH ×3 (09:30→21:14)
[2018-03-23] MEDS: DONEPEZIL HCL 10 MG TABLET PO SCH (09:30)
[2018-03-23] MEDS: POLYETHYLENE GLYCOL 3350 17 GM PACKET. PO SCH (09:30)
[2018-03-23 14:39] VITALS: BP 96/59
[2018-03-23 16:23] VITALS: BP 96/59
[2018-03-23] MEDS: risperiDONE 0.5 MG TABLET. PO SCH (21:14)
[2018-03-23] MEDS: MIRTAZAPINE 7.5 MG TABLET. PO SCH (21:14)
--- NOTE | 2018-03-23 21:42 | PDOC ---
Exam Note: Ru Note: Please also refer to the separate dictated note~for this date of service dictated separately.~Patient seen individually. Discussed the patient with Nursing staff reviewed the chart.~Reviewed interim history and current functioning. Reviewed vital signs,~Labs/ Radiology~and current medications noted below. Continue current treatment with the changes noted in the dictated addendum note Assessment: Vital Signs: Vital Signs Date Time Temp Pulse Resp B/P (MAP) Pulse Ox O2 Delivery O2 Flow Rate FiO2 03/23/18 21:14 68 96/59 03/23/18 16:23 97.9 18 99 03/18/18 06:24 Room Air I&O Intake and Output 03/23/18 07:00 Intake Total 655 ml Balance 655 ml Intake Oral 655 ml Labs: Laboratory Tests Test 03/23/18 09:00 White Blood Count 6.9 x10^3/uL (4.0-11.0) Red Blood Count 4.99 x10^6/uL (3.50-5.40) Hemoglobin 12.9 g/dL (12.0-15.5) Hematocrit 39.5 % (36.0-47.0) Mean Corpuscular Volume 79 fL (79-100) Mean Corpuscular Hemoglobin 26 pg (25-35) Mean Corpuscular Hemoglobin Concent 33 g/dL (31-37) Red Cell Distribution Width 14.9 % (11.5-14.5) H Platelet Count 270 x10^3/uL (140-400) Neutrophils (%) (Auto) 68 % (31-73) Lymphocytes (%) (Auto) 24 % (24-48) Monocytes (%) (Auto) 8 % (0-9) Eosinophils (%) (Auto) 0 % (0-3) Basophils (%) (Auto) 0 % (0-3) Neutrophils # (Auto) 4.7 x10^3uL (1.8-7.7) Lymphocytes # (Auto) 1.6 x10^3/uL (1.0-4.8) Monocytes # (Auto) 0.5 x10^3/uL (0.0-1.1) Eosinophils # (Auto) 0.0 x10^3/uL (0.0-0.7) Basophils # (Auto) 0.0 x10^3/uL (0.0-0.2) Sodium Level 138 mmol/L (136-145) Potassium Level 3.8 mmol/L (3.5-5.1) Chloride Level 102 mmol/L (98-107) Carbon Dioxide Level 31 mmol/L (21-32) Anion Gap 5 (6-14) L Blood Urea Nitrogen 19 mg/dL (7-20) Creatinine 0.7 mg/dL (0.6-1.0) Estimated GFR (Cockcroft-Gault) 82.3 BUN/Creatinine Ratio 27 (6-20) H Glucose Level 185 mg/dL (70-99) H Calcium Level 8.5 mg/dL (8.5-10.1) Total Bilirubin 0.2 mg/dL (0.2-1.0) Aspartate Amino Transferase (AST) 11 U/L (15-37) L Alanine Aminotransferase (ALT) 15 U/L (14-59) Alkaline Phosphatase 62 U/L (46-116) Total Protein 6.0 g/dL (6.4-8.2) L Albumin 2.5 g/dL (3.4-5.0) L Albumin/Globulin Ratio 0.7 (1.0-1.7) L Current Medications: Meds: Current Medications Acetaminophen (Tylenol) 650 mg PRN Q6HRS PRN PO PAIN / TEMP; Start 03/10/18 at 22:00 Multi-Ingredient Ointment (Analgesic [place]) 1 shira PRN QID PRN TP MUSCLE PAIN; Start 03/10/18 at 22:00 Al Hydroxide/Mg Hydroxide (Mylanta Plus Xs) 15 ml PRN AFTMEALHC PRN PO DYSPEPSIA; Start 03/10/18 at 22:00 Magnesium Hydroxide (Milk Of Magnesia) 2,400 mg PRN QHS PRN PO CONSTIPATION; Start 03/10/18 at 22:00 Donepezil HCl (Aricept) 10 mg DAILY PO Last administered on 03/23/18at 09:30; Start 03/11/18 at 09:00 Mirtazapine (Remeron) 7.5 mg QHS PO Last administered on 03/23/18at 21:14; Start 03/10/18 at 22:30 Olanzapine (ZyPREXA) 2.5 mg PRN Q6HRS PRN PO ANXIETY / AGITATION; Start at 22:15 Melatonin 3 mg PRN QHS PRN PO INSOMNIA Last administered on 03/16/18 19:43; Start 03/10/18 at 22:30 Amlodipine Besylate (Norvasc) 5 mg DAILY PO Last administered on 03/22/18 09: 45; Start 03/11/18 at 09:00 Aspirin (Aspirin Enteric Coated) 81 mg DAILY PO Last administered on 03/23/18 09:30; Start 03/11/18 at 09:00 Bisacodyl (Dulcolax Supp) 10 mg PRN DAILY PRN RC CONSTIPATION; Start 03/10/18 at 22:15 Calcium/Vitamin D (Oscal D 500mg/ 200uts) 1 tab DAILY PO Last administered on 09:30; Start 03/11/18 at 09:00 Docusate Sodium (Colace) 100 mg BID PO Last administered on 03/23/18 21:14; Start 03/11/18 at 09:00 Levothyroxine Sodium (Synthroid) 50 mcg DAILYAC PO Last administered on 08:28; Start 03/11/18 at 07:30; Stop 03/12/18 at 11:22; Status DC Ondansetron HCl (Zofran Odt) 4 mg PRN Q6HRS PRN PO NAUSEA/VOMITING; Start 03/10 at 22:15 Polyethylene Glycol (miraLAX) 17 gm DAILY PO Last administered on 03/23/18 09: 30; Start 03/11/18 at 09:00 Propranolol HCl (Inderal) 10 mg TID PO Last administered on 03/22/18 20:04; Start 03/11/18 at 09:00 Potassium Chloride (Klor-Con) 40 meq 1X ONCE PO Last administered on at 23:27; Start 03/10/18 at 23:15; Stop 03/10/18 at 23:22; Status DC Potassium Chloride (Klor-Con) 40 meq 1X ONCE PO Last administered on at 02:40; Start 03/11/18 at 03:00; Stop 03/11/18 at 03:02; Status DC Potassium Chloride (Klor-Con) 40 meq 1X ONCE PO Last administered on at 05:00; Start 03/11/18 at 05:00; Stop 03/11/18 at 05:01; Status DC Risperidone (RisperDAL) 0.25 mg QHS PO Last administered on 03/12/18at 19:40; Start 03/11/18 at 21:00; Stop 03/13/18 at 20:59; Status DC Levothyroxine Sodium (Synthroid) 50 mcg DAILY06 PO Last administered on 06:03; Start 03/13/18 at 06:00 Risperidone (RisperDAL) 0.5 mg QHS PO Last administered on 03/23/18at 21:14; Start 03/13/18 at 21:00 Fluvoxamine Maleate (Luvox) 25 mg QHS PO Last administered on 03/15/18at 20:30; Start 03/13/18 at 21:00; Stop 03/16/18 at 18:21; Status DC Fluvoxamine Maleate (Luvox) 50 mg QHS PO Last administered on 03/18/18at 19:06; Start 03/16/18 at 21:00; Stop 03/19/18 at 20:59; Status DC Fluvoxamine Maleate (Luvox) 75 mg QHS PO Last administered on 03/23/18at 21:13; Start 03/19/18 at 21:00 Active Scripts Active Reported Melatonin 3 Mg Tablet 3 Mg PO PRN QHS PRN Lovenox (Enoxaparin Sodium) 40 Mg/0.4 Ml Disp.syrin 40 Mg SQ DAILY Aspirin Ec (Aspirin) 81 Mg Tablet.dr 81 Mg PO DAILY Levothyroxine Sodium 50 Mcg Tablet 50 Mcg PO DAILYAC Propranolol Hcl 10 Mg Tablet 10 Mg PO TID Polyethylene Glycol 3350 255 Gm Powder 17 Gm PO DAILY Ondansetron Odt (Ondansetron) 4 Mg Tab.rapdis 4 Mg PO PRN Q6HRS PRN Olanzapine 5 Mg Tablet 2.5 Mg PO PRN Q6HRS PRN Mirtazapine 7.5 Mg Tablet 7.5 Mg PO QHS Donepezil Hcl 10 Mg Tablet 10 Mg PO DAILY Docusate Sodium 100 Mg Capsule 100 Mg PO BID Calcium 500 + Vit D 200 Tablet (Calcium Carbonate/Vitamin D3) 1 Each Tablet 1 Each PO DAILY Bisacodyl 10 Mg Supp.rect 10 Mg RC PRN DAILY PRN Amlodipine Besylate 5 Mg Tablet 5 Mg PO DAILY I have reviewed the current psychotropics carefully including drug interactions. Risk benefit ratio favors no change other than as noted in my dictated progress note. Diagnosis: Problems: (1) Anxiety disorder (2) Impulse control disorder (3) Dementia, vascular, with delusions (4) Dementia in Alzheimer's disease with depression (5) Dementia in Alzheimer's disease with delusions LAUREL COUGHLIN MD Mar 23, 2018 21:42
--- NOTE | 2018-03-24 03:47 | PN ---
DATE: 03/21/2018 PSYCHIATRIC PROGRESS NOTE This late entry 03/21/2018 covers elements not covered in my initial note of 03/21/2018. SUBJECTIVE: I met with the patient in the evening. She slept 10 hours previous evening, quite distressed with her roommate snoring at night, wants to go back to her previous room. I have discussed with nursing staff and let them decide. REVIEW OF SYSTEMS: No CV, , pulmonary, eye, ENT system symptoms on review. MENTAL STATUS EXAM: Oriented to herself and situation. Speech has some latency, coherent. Abstraction fair, computation impaired, language function intact. Mood and affect, lability is improved, less paranoid. LABORATORIES: Reviewed. IMPRESSION: Major depressive disorder with psychotic features, obsessive-compulsive disorder, cognitive disorder; unspecified. PLAN: Continue psychotropics mentioned in my initial note. MAN Carla COUGHLIN MD DR: YAKELIN/omar JOB#: [id number] / [id number]
--- NOTE | 2018-03-24 05:12 | PN ---
DATE: 03/22/2018 PSYCHIATRIC PROGRESS NOTE This late entry 03/22/2018 covers elements not covered in my initial note 03/22/2018. SUBJECTIVE: I met with the patient evening of 03/22/2018. The patient slept 9 hours previous evening, did better last night, was somewhat withdrawn, wants the room changed because her roommate snores and I have discussed with nursing staff. REVIEW OF SYSTEMS: No CV, , pulmonary, eye system symptoms on review, somewhat obsessive. MENTAL STATUS EXAM: Oriented to herself and situation. Speech is moderate latency, coherent. Abstraction fair, computation impaired, language function intact. Mood and affect less obsessive, less depressed. LABORATORIES: Reviewed. IMPRESSION: Unchanged from initial note. PLAN: Gradually increase the Luvox further. Rest unchanged. Risperdal 0.5 mg at bedtime to be continued. MAN Carla COUGHLIN MD DR: YAKELIN/omar JOB#: [id number] / [id number]
[2018-03-24] MEDS: LEVOTHYROXINE 50 MCG TABLET PO SCH (05:40)
[2018-03-24 06:41] VITALS: BP 103/53
[2018-03-24] MEDS: PROPRANOLOL 10 MG TABLET. PO SCH ×3 (09:00→20:26)
[2018-03-24] MEDS: CALCIUM CARB/VIT D3 500/200 TABLET PO SCH (09:01)
[2018-03-24] MEDS: POLYETHYLENE GLYCOL 3350 17 GM PACKET. PO SCH (09:01)
[2018-03-24] MEDS: DONEPEZIL HCL 10 MG TABLET PO SCH (09:01)
[2018-03-24] MEDS: DOCUSATE SODIUM 100 MG CAPSULE PO SCH ×2 (09:01→20:25)
[2018-03-24] MEDS: amLODIPine BESYLATE 5 MG TABLET PO SCH (09:01)
[2018-03-24] MEDS: ASPIRIN ENTERIC COATED 81 MG TABLET.DR. PO SCH (09:01)
[2018-03-24 13:04] VITALS: BP 125/66
[2018-03-24 16:04] VITALS: BP 111/57
[2018-03-24] MEDS: risperiDONE 0.5 MG TABLET. PO SCH (20:26)
[2018-03-24] MEDS: MIRTAZAPINE 7.5 MG TABLET. PO SCH (20:26)
--- NOTE | 2018-03-24 21:42 | PDOC ---
Exam Note: Ru Note: Please also refer to the separate dictated note~for this date of service dictated separately.~Patient seen individually. Discussed the patient with Nursing staff reviewed the chart.~Reviewed interim history and current functioning. Reviewed vital signs,~Labs/ Radiology~and current medications noted below. Continue current treatment with the changes noted in the dictated addendum note Assessment: Vital Signs: Vital Signs Date Time Temp Pulse Resp B/P (MAP) Pulse Ox O2 Delivery O2 Flow Rate FiO2 03/24/18 20:26 62 111/57 03/24/18 16:04 97.9 18 96 I&O Intake and Output 03/24/18 07:00 Intake Total 720 ml Balance 720 ml Intake Oral 720 ml # Voids 1 Current Medications: Meds: Current Medications Acetaminophen (Tylenol) 650 mg PRN Q6HRS PRN PO PAIN / TEMP; Start 03/10/18 at 22:00 Multi-Ingredient Ointment (Analgesic [place]) 1 shira PRN QID PRN TP MUSCLE PAIN; Start 03/10/18 at 22:00 Al Hydroxide/Mg Hydroxide (Mylanta Plus Xs) 15 ml PRN AFTMEALHC PRN PO DYSPEPSIA; Start 03/10/18 at 22:00 Magnesium Hydroxide (Milk Of Magnesia) 2,400 mg PRN QHS PRN PO CONSTIPATION; Start 03/10/18 at 22:00 Donepezil HCl (Aricept) 10 mg DAILY PO Last administered on 03/24/18 09:01; Start 03/11/18 at 09:00 Mirtazapine (Remeron) 7.5 mg QHS PO Last administered on 03/24/18at 20:26; Start 03/10/18 at 22:30 Olanzapine (ZyPREXA) 2.5 mg PRN Q6HRS PRN PO ANXIETY / AGITATION; Start at 22:15 Melatonin 3 mg PRN QHS PRN PO INSOMNIA Last administered on 03/16/18at 19:43; Start 03/10/18 at 22:30 Amlodipine Besylate (Norvasc) 5 mg DAILY PO Last administered on 03/24/18 09:01 ; Start 03/11/18 at 09:00 Aspirin (Aspirin Enteric Coated) 81 mg DAILY PO Last administered on 03/24/18 09:01; Start 03/11/18 at 09:00 Bisacodyl (Dulcolax Supp) 10 mg PRN DAILY PRN RC CONSTIPATION; Start 03/10/18 at 22:15 Calcium/Vitamin D (Oscal D 500mg/ 200uts) 1 tab DAILY PO Last administered on 09:01; Start 03/11/18 at 09:00 Docusate Sodium (Colace) 100 mg BID PO Last administered on 03/24/18 20:25; Start 03/11/18 at 09:00 Levothyroxine Sodium (Synthroid) 50 mcg DAILYAC PO Last administered on 08:28; Start 03/11/18 at 07:30; Stop 03/12/18 at 11:22; Status DC Ondansetron HCl (Zofran Odt) 4 mg PRN Q6HRS PRN PO NAUSEA/VOMITING; Start 03/10 at 22:15 Polyethylene Glycol (miraLAX) 17 gm DAILY PO Last administered on 03/24/18 09: 01; Start 03/11/18 at 09:00 Propranolol HCl (Inderal) 10 mg TID PO Last administered on 03/24/18 20:26; Start 03/11/18 at 09:00 Potassium Chloride (Klor-Con) 40 meq 1X ONCE PO Last administered on 23:27; Start 03/10/18 at 23:15; Stop 03/10/18 at 23:22; Status DC Potassium Chloride (Klor-Con) 40 meq 1X ONCE PO Last administered on 02:40; Start 03/11/18 at 03:00; Stop 03/11/18 at 03:02; Status DC Potassium Chloride (Klor-Con) 40 meq 1X ONCE PO Last administered on 05:00; Start 03/11/18 at 05:00; Stop 03/11/18 at 05:01; Status DC Risperidone (RisperDAL) 0.25 mg QHS PO Last administered on 03/12/18at 19:40; Start 03/11/18 at 21:00; Stop 03/13/18 at 20:59; Status DC Levothyroxine Sodium (Synthroid) 50 mcg DAILY06 PO Last administered on 05:40; Start 03/13/18 at 06:00 Risperidone (RisperDAL) 0.5 mg QHS PO Last administered on 03/24/18 20:26; Start 03/13/18 at 21:00 Fluvoxamine Maleate (Luvox) 25 mg QHS PO Last administered on 03/15/18at 20:30; Start 03/13/18 at 21:00; Stop 03/16/18 at 18:21; Status DC Fluvoxamine Maleate (Luvox) 50 mg QHS PO Last administered on 03/18/18at 19:06; Start 03/16/18 at 21:00; Stop 03/19/18 at 20:59; Status DC Fluvoxamine Maleate (Luvox) 75 mg QHS PO Last administered on 03/24/18at 20:26; Start 03/19/18 at 21:00 Active Scripts Active Reported Melatonin 3 Mg Tablet 3 Mg PO PRN QHS PRN Lovenox (Enoxaparin Sodium) 40 Mg/0.4 Ml Disp.syrin 40 Mg SQ DAILY Aspirin Ec (Aspirin) 81 Mg Tablet.dr 81 Mg PO DAILY Levothyroxine Sodium 50 Mcg Tablet 50 Mcg PO DAILYAC Propranolol Hcl 10 Mg Tablet 10 Mg PO TID Polyethylene Glycol 3350 255 Gm Powder 17 Gm PO DAILY Ondansetron Odt (Ondansetron) 4 Mg Tab.rapdis 4 Mg PO PRN Q6HRS PRN Olanzapine 5 Mg Tablet 2.5 Mg PO PRN Q6HRS PRN Mirtazapine 7.5 Mg Tablet 7.5 Mg PO QHS Donepezil Hcl 10 Mg Tablet 10 Mg PO DAILY Docusate Sodium 100 Mg Capsule 100 Mg PO BID Calcium 500 + Vit D 200 Tablet (Calcium Carbonate/Vitamin D3) 1 Each Tablet 1 Each PO DAILY Bisacodyl 10 Mg Supp.rect 10 Mg RC PRN DAILY PRN Amlodipine Besylate 5 Mg Tablet 5 Mg PO DAILY I have reviewed the current psychotropics carefully including drug interactions. Risk benefit ratio favors no change other than as noted in my dictated progress note. Diagnosis: Problems: (1) Anxiety disorder (2) Impulse control disorder (3) Dementia, vascular, with delusions (4) Dementia in Alzheimer's disease with depression (5) Dementia in Alzheimer's disease with delusions LAUREL COUGHLIN MD March 24, 2018 21:42
--- NOTE | 2018-03-25 03:27 | PN ---
DATE: 03/23/2018 This is a late entry for 03/23/2018 covers elements not covered in my initial note. SUBJECTIVE: I met with the patient in the evening. She is quite irritable, wanting her room changed to her previous roommate. I have discussed with nursing staff, slept reasonably well, but states she has a disturbed sleep because of her roommate snoring. REVIEW OF SYSTEMS: No CV, , pulmonary, eye, ENT system symptoms on review. MENTAL STATUS EXAM: Oriented to herself and situation. Speech is coherent, has some latency. Abstraction fair, computation impaired, language function intact, attention span short. Mood and affect somewhat withdrawn. LABORATORY DATA: Reviewed. IMPRESSION: Major depressive disorder with psychotic features; cognitive disorder, unspecified. PLAN: Continue psychotropics including Luvox for her OCD symptoms. MAN Carla COUGHLIN MD DR: YAKELIN/omar JOB#: [id number] / [id number]
[2018-03-25] MEDS: LEVOTHYROXINE 50 MCG TABLET PO SCH (05:41)
[2018-03-25 06:24] VITALS: BP 126/65
[2018-03-25] MEDS: DOCUSATE SODIUM 100 MG CAPSULE PO SCH ×2 (10:43→20:37)
[2018-03-25] MEDS: POLYETHYLENE GLYCOL 3350 17 GM PACKET. PO SCH (10:43)
[2018-03-25] MEDS: DONEPEZIL HCL 10 MG TABLET PO SCH (10:44)
[2018-03-25] MEDS: ASPIRIN ENTERIC COATED 81 MG TABLET.DR. PO SCH (10:44)
[2018-03-25] MEDS: amLODIPine BESYLATE 5 MG TABLET PO SCH (10:44)
[2018-03-25] MEDS: CALCIUM CARB/VIT D3 500/200 TABLET PO SCH (10:44)
[2018-03-25] MEDS: PROPRANOLOL 10 MG TABLET. PO SCH ×3 (10:44→20:37)
[2018-03-25 14:40] VITALS: BP 105/59
[2018-03-25 17:01] VITALS: BP 125/66
[2018-03-25] MEDS: MIRTAZAPINE 7.5 MG TABLET. PO SCH (20:37)
[2018-03-25] MEDS: risperiDONE 0.5 MG TABLET. PO SCH (20:37)
--- NOTE | 2018-03-25 21:07 | PDOC ---
Exam Note: Ru Note: Please also refer to the separate dictated note~for this date of service dictated separately.~Patient seen individually. Discussed the patient with Nursing staff reviewed the chart.~Reviewed interim history and current functioning. Reviewed vital signs,~Labs/ Radiology~and current medications noted below. Continue current treatment with the changes noted in the dictated addendum note Assessment: Vital Signs: Vital Signs Date Time Temp Pulse Resp B/P (MAP) Pulse Ox O2 Delivery O2 Flow Rate FiO2 03/25/18 20:37 63 125/66 03/25/18 17:01 97.9 18 100 I&O Intake and Output 03/25/18 07:00 Intake Total 840 ml Balance 840 ml Intake Oral 840 ml Current Medications: Meds: Current Medications Acetaminophen (Tylenol) 650 mg PRN Q6HRS PRN PO PAIN / TEMP; Start 03/10/18 at 22:00 Multi-Ingredient Ointment (Analgesic [place]) 1 shira PRN QID PRN TP MUSCLE PAIN; Start 03/10/18 at 22:00 Al Hydroxide/Mg Hydroxide (Mylanta Plus Xs) 15 ml PRN AFTMEALHC PRN PO DYSPEPSIA; Start 03/10/18 at 22:00 Magnesium Hydroxide (Milk Of Magnesia) 2,400 mg PRN QHS PRN PO CONSTIPATION; Start 03/10/18 at 22:00 Donepezil HCl (Aricept) 10 mg DAILY PO Last administered on 03/25/18at 10:44; Start 03/11/18 at 09:00 Mirtazapine (Remeron) 7.5 mg QHS PO Last administered on 03/25/18at 20:37; Start 03/10/18 at 22:30 Olanzapine (ZyPREXA) 2.5 mg PRN Q6HRS PRN PO ANXIETY / AGITATION; Start at 22:15 Melatonin 3 mg PRN QHS PRN PO INSOMNIA Last administered on 03/16/18at 19:43; Start 03/10/18 at 22:30 Amlodipine Besylate (Norvasc) 5 mg DAILY PO Last administered on 03/25/18at 10:44 ; Start 03/11/18 at 09:00 Aspirin (Aspirin Enteric Coated) 81 mg DAILY PO Last administered on 03/25/18at 10:44; Start 03/11/18 at 09:00 Bisacodyl (Dulcolax Supp) 10 mg PRN DAILY PRN RC CONSTIPATION; Start 03/10/18 at 22:15 Calcium/Vitamin D (Oscal D 500mg/ 200uts) 1 tab DAILY PO Last administered on 10:44; Start 03/11/18 at 09:00 Docusate Sodium (Colace) 100 mg BID PO Last administered on 03/25/18 20:37; Start 03/11/18 at 09:00 Levothyroxine Sodium (Synthroid) 50 mcg DAILYAC PO Last administered on 08:28; Start 03/11/18 at 07:30; Stop 03/12/18 at 11:22; Status DC Ondansetron HCl (Zofran Odt) 4 mg PRN Q6HRS PRN PO NAUSEA/VOMITING; Start 03/10 at 22:15 Polyethylene Glycol (miraLAX) 17 gm DAILY PO Last administered on 03/25/18 10: 43; Start 03/11/18 at 09:00 Propranolol HCl (Inderal) 10 mg TID PO Last administered on 03/25/18 20:37; Start 03/11/18 at 09:00 Potassium Chloride (Klor-Con) 40 meq 1X ONCE PO Last administered on at 23:27; Start 03/10/18 at 23:15; Stop 03/10/18 at 23:22; Status DC Potassium Chloride (Klor-Con) 40 meq 1X ONCE PO Last administered on 02:40; Start 03/11/18 at 03:00; Stop 03/11/18 at 03:02; Status DC Potassium Chloride (Klor-Con) 40 meq 1X ONCE PO Last administered on at 05:00; Start 03/11/18 at 05:00; Stop 03/11/18 at 05:01; Status DC Risperidone (RisperDAL) 0.25 mg QHS PO Last administered on 03/12/18at 19:40; Start 03/11/18 at 21:00; Stop 03/13/18 at 20:59; Status DC Levothyroxine Sodium (Synthroid) 50 mcg DAILY06 PO Last administered on 05:41; Start 03/13/18 at 06:00 Risperidone (RisperDAL) 0.5 mg QHS PO Last administered on 03/25/18 20:37; Start 03/13/18 at 21:00 Fluvoxamine Maleate (Luvox) 25 mg QHS PO Last administered on 03/15/18at 20:30; Start 03/13/18 at 21:00; Stop 03/16/18 at 18:21; Status DC Fluvoxamine Maleate (Luvox) 50 mg QHS PO Last administered on 03/18/18at 19:06; Start 03/16/18 at 21:00; Stop 03/19/18 at 20:59; Status DC Fluvoxamine Maleate (Luvox) 75 mg QHS PO Last administered on 03/25/18at 20:37; Start 03/19/18 at 21:00 Active Scripts Active Reported Melatonin 3 Mg Tablet 3 Mg PO PRN QHS PRN Lovenox (Enoxaparin Sodium) 40 Mg/0.4 Ml Disp.syrin 40 Mg SQ DAILY Aspirin Ec (Aspirin) 81 Mg Tablet.dr 81 Mg PO DAILY Levothyroxine Sodium 50 Mcg Tablet 50 Mcg PO DAILYAC Propranolol Hcl 10 Mg Tablet 10 Mg PO TID Polyethylene Glycol 3350 255 Gm Powder 17 Gm PO DAILY Ondansetron Odt (Ondansetron) 4 Mg Tab.rapdis 4 Mg PO PRN Q6HRS PRN Olanzapine 5 Mg Tablet 2.5 Mg PO PRN Q6HRS PRN Mirtazapine 7.5 Mg Tablet 7.5 Mg PO QHS Donepezil Hcl 10 Mg Tablet 10 Mg PO DAILY Docusate Sodium 100 Mg Capsule 100 Mg PO BID Calcium 500 + Vit D 200 Tablet (Calcium Carbonate/Vitamin D3) 1 Each Tablet 1 Each PO DAILY Bisacodyl 10 Mg Supp.rect 10 Mg RC PRN DAILY PRN Amlodipine Besylate 5 Mg Tablet 5 Mg PO DAILY I have reviewed the current psychotropics carefully including drug interactions. Risk benefit ratio favors no change other than as noted in my dictated progress note. Diagnosis: Problems: (1) Anxiety disorder (2) Impulse control disorder (3) Dementia, vascular, with delusions (4) Dementia in Alzheimer's disease with depression (5) Dementia in Alzheimer's disease with delusions LAUREL COUGHLIN MD March 25, 2018 21:07
--- NOTE | 2018-03-25 23:40 | PN ---
DATE: 03/24/2018 PSYCHIATRIC PROGRESS NOTE This is a late entry for 03/24/2018, covers elements not covered in my initial note of 03/24/2018. SUBJECTIVE: I met with the patient in the evening. The patient slept 8-1/4 hours previous evening. She feels she did not sleep at all at night and this seems to be her subjective because her roommate snores and nursing staff will change her room. She has been withdrawn to her room, did come to the day room later in the day. REVIEW OF SYSTEMS: No CV, , pulmonary, eye, ENT system symptoms on review. MENTAL STATUS EXAM: Oriented to herself and situation. Speech moderate latency, often responses monosyllabic. Abstraction fair, computation impaired, language function intact, attention span short. Mood and affect somewhat withdrawn. LABORATORY DATA: Reviewed. IMPRESSION: Unchanged from initial note. PLAN: Continue current psychotropics. MAN Carla COUGHLIN MD DR: YAKELIN/omar JOB#: [id number] / [id number]
[2018-03-26 05:49] VITALS: BP 128/71
[2018-03-26] MEDS: LEVOTHYROXINE 50 MCG TABLET PO SCH (06:12)
[2018-03-26] MEDS: amLODIPine BESYLATE 5 MG TABLET PO SCH (08:44)
[2018-03-26] MEDS: ASPIRIN ENTERIC COATED 81 MG TABLET.DR. PO SCH (08:44)
[2018-03-26] MEDS: DONEPEZIL HCL 10 MG TABLET PO SCH (08:44)
[2018-03-26] MEDS: PROPRANOLOL 10 MG TABLET. PO SCH ×3 (08:45→19:29)
[2018-03-26] MEDS: CALCIUM CARB/VIT D3 500/200 TABLET PO SCH (08:45)
[2018-03-26] MEDS: POLYETHYLENE GLYCOL 3350 17 GM PACKET. PO SCH (08:45)
[2018-03-26] MEDS: DOCUSATE SODIUM 100 MG CAPSULE PO SCH ×2 (08:45→19:29)
[2018-03-26 16:33] VITALS: BP 118/57
[2018-03-26] MEDS: risperiDONE 0.5 MG TABLET. PO SCH (19:29)
[2018-03-26] MEDS: MIRTAZAPINE 7.5 MG TABLET. PO SCH (19:29)
--- NOTE | 2018-03-26 21:09 | PDOC ---
Exam Note: Ru Note: Please also refer to the separate dictated note~for this date of service dictated separately.~Patient seen individually. Discussed the patient with Nursing staff reviewed the chart.~Reviewed interim history and current functioning. Reviewed vital signs,~Labs/ Radiology~and current medications noted below. Continue current treatment with the changes noted in the dictated addendum note Assessment: Vital Signs: Vital Signs Date Time Temp Pulse Resp B/P (MAP) Pulse Ox O2 Delivery O2 Flow Rate FiO2 03/26/18 19:29 61 118/57 03/26/18 16:33 98.1 18 97 I&O Intake and Output 03/26/18 07:00 Intake Total 1200 ml Balance 1200 ml Intake Oral 1200 ml Current Medications: Meds: Current Medications Acetaminophen (Tylenol) 650 mg PRN Q6HRS PRN PO PAIN / TEMP; Start 03/10/18 at 22:00 Multi-Ingredient Ointment (Analgesic [place]) 1 shira PRN QID PRN TP MUSCLE PAIN; Start 03/10/18 at 22:00 Al Hydroxide/Mg Hydroxide (Mylanta Plus Xs) 15 ml PRN AFTMEALHC PRN PO DYSPEPSIA; Start 03/10/18 at 22:00 Magnesium Hydroxide (Milk Of Magnesia) 2,400 mg PRN QHS PRN PO CONSTIPATION; Start 03/10/18 at 22:00 Donepezil HCl (Aricept) 10 mg DAILY PO Last administered on 03/26/18 08:44; Start 03/11/18 at 09:00 Mirtazapine (Remeron) 7.5 mg QHS PO Last administered on 03/26/18 19:29; Start 03/10/18 at 22:30 Olanzapine (ZyPREXA) 2.5 mg PRN Q6HRS PRN PO ANXIETY / AGITATION; Start at 22:15 Melatonin 3 mg PRN QHS PRN PO INSOMNIA Last administered on 03/16/18 19:43; Start 03/10/18 at 22:30 Amlodipine Besylate (Norvasc) 5 mg DAILY PO Last administered on 03/26/18 08:44 ; Start 03/11/18 at 09:00 Aspirin (Aspirin Enteric Coated) 81 mg DAILY PO Last administered on 03/26/18 08:44; Start 03/11/18 at 09:00 Bisacodyl (Dulcolax Supp) 10 mg PRN DAILY PRN RC CONSTIPATION; Start 03/10/18 at 22:15 Calcium/Vitamin D (Oscal D 500mg/ 200uts) 1 tab DAILY PO Last administered on 08:45; Start 03/11/18 at 09:00 Docusate Sodium (Colace) 100 mg BID PO Last administered on 03/26/18 19:29; Start 03/11/18 at 09:00 Levothyroxine Sodium (Synthroid) 50 mcg DAILYAC PO Last administered on 08:28; Start 03/11/18 at 07:30; Stop 03/12/18 at 11:22; Status DC Ondansetron HCl (Zofran Odt) 4 mg PRN Q6HRS PRN PO NAUSEA/VOMITING; Start 03/10 at 22:15 Polyethylene Glycol (miraLAX) 17 gm DAILY PO Last administered on 03/26/18 08: 45; Start 03/11/18 at 09:00 Propranolol HCl (Inderal) 10 mg TID PO Last administered on 03/26/18 19:29; Start 03/11/18 at 09:00 Potassium Chloride (Klor-Con) 40 meq 1X ONCE PO Last administered on at 23:27; Start 03/10/18 at 23:15; Stop 03/10/18 at 23:22; Status DC Potassium Chloride (Klor-Con) 40 meq 1X ONCE PO Last administered on 02:40; Start 03/11/18 at 03:00; Stop 03/11/18 at 03:02; Status DC Potassium Chloride (Klor-Con) 40 meq 1X ONCE PO Last administered on 05:00; Start 03/11/18 at 05:00; Stop 03/11/18 at 05:01; Status DC Risperidone (RisperDAL) 0.25 mg QHS PO Last administered on 03/12/18 19:40; Start 03/11/18 at 21:00; Stop 03/13/18 at 20:59; Status DC Levothyroxine Sodium (Synthroid) 50 mcg DAILY06 PO Last administered on 06:12; Start 03/13/18 at 06:00 Risperidone (RisperDAL) 0.5 mg QHS PO Last administered on 03/26/18 19:29; Start 03/13/18 at 21:00 Fluvoxamine Maleate (Luvox) 25 mg QHS PO Last administered on 03/15/18at 20:30; Start 03/13/18 at 21:00; Stop 03/16/18 at 18:21; Status DC Fluvoxamine Maleate (Luvox) 50 mg QHS PO Last administered on 03/18/18at 19:06; Start 03/16/18 at 21:00; Stop 03/19/18 at 20:59; Status DC Fluvoxamine Maleate (Luvox) 75 mg QHS PO Last administered on 03/26/18 19:29; Start 03/19/18 at 21:00 Bupropion HCl (Wellbutrin Xl) 150 mg DAILY PO ; Start 03/27/18 at 09:00 Active Scripts Active Reported Melatonin 3 Mg Tablet 3 Mg PO PRN QHS PRN Lovenox (Enoxaparin Sodium) 40 Mg/0.4 Ml Disp.syrin 40 Mg SQ DAILY Aspirin Ec (Aspirin) 81 Mg Tablet.dr 81 Mg PO DAILY Levothyroxine Sodium 50 Mcg Tablet 50 Mcg PO DAILYAC Propranolol Hcl 10 Mg Tablet 10 Mg PO TID Polyethylene Glycol 3350 255 Gm Powder 17 Gm PO DAILY Ondansetron Odt (Ondansetron) 4 Mg Tab.rapdis 4 Mg PO PRN Q6HRS PRN Olanzapine 5 Mg Tablet 2.5 Mg PO PRN Q6HRS PRN Mirtazapine 7.5 Mg Tablet 7.5 Mg PO QHS Donepezil Hcl 10 Mg Tablet 10 Mg PO DAILY Docusate Sodium 100 Mg Capsule 100 Mg PO BID Calcium 500 + Vit D 200 Tablet (Calcium Carbonate/Vitamin D3) 1 Each Tablet 1 Each PO DAILY Bisacodyl 10 Mg Supp.rect 10 Mg RC PRN DAILY PRN Amlodipine Besylate 5 Mg Tablet 5 Mg PO DAILY I have reviewed the current psychotropics carefully including drug interactions. Risk benefit ratio favors no change other than as noted in my dictated progress note. Diagnosis: Problems: (1) Anxiety disorder (2) Impulse control disorder (3) Dementia, vascular, with delusions (4) Dementia in Alzheimer's disease with depression (5) Dementia in Alzheimer's disease with delusions LAUREL COUGHLIN MD March 26, 2018 21:09
[2018-03-27] MEDS: LEVOTHYROXINE 50 MCG TABLET PO SCH (05:57)
[2018-03-27 06:15] VITALS: BP 125/47
[2018-03-27] MEDS: ASPIRIN ENTERIC COATED 81 MG TABLET.DR. PO SCH (09:26)
[2018-03-27] MEDS: POLYETHYLENE GLYCOL 3350 17 GM PACKET. PO SCH (09:26)
[2018-03-27] MEDS: DONEPEZIL HCL 10 MG TABLET PO SCH (09:26)
[2018-03-27] MEDS: PROPRANOLOL 10 MG TABLET. PO SCH ×3 (09:27→20:45)
[2018-03-27] MEDS: CALCIUM CARB/VIT D3 500/200 TABLET PO SCH (09:27)
[2018-03-27] MEDS: DOCUSATE SODIUM 100 MG CAPSULE PO SCH ×2 (09:27→20:44)
[2018-03-27] MEDS: amLODIPine BESYLATE 5 MG TABLET PO SCH (09:27)
[2018-03-27] MEDS: buPROPion XL 150 MG TAB.ER.24H PO SCH (09:28)
[2018-03-27 16:05] VITALS: BP 108/54
[2018-03-27] MEDS: MIRTAZAPINE 7.5 MG TABLET. PO SCH (20:42)
[2018-03-27] MEDS: risperiDONE 0.5 MG TABLET. PO SCH (20:52)
--- NOTE | 2018-03-27 21:14 | PDOC ---
Exam Note: Ru Note: Please also refer to the separate dictated note~for this date of service dictated separately.~Patient seen individually. Discussed the patient with Nursing staff reviewed the chart.~Reviewed interim history and current functioning. Reviewed vital signs,~Labs/ Radiology~and current medications noted below. Continue current treatment with the changes noted in the dictated addendum note Assessment: Vital Signs: Vital Signs Date Time Temp Pulse Resp B/P (MAP) Pulse Ox O2 Delivery O2 Flow Rate FiO2 03/27/18 20:45 72 108/54 03/27/18 16:05 98.3 18 96 03/27/18 06:15 Room Air I&O Intake and Output 03/27/18 07:00 Intake Total 480 ml Balance 480 ml Intake Oral 480 ml # Bowel Movements 1 Current Medications: Meds: Current Medications Acetaminophen (Tylenol) 650 mg PRN Q6HRS PRN PO PAIN / TEMP; Start 03/10/18 at 22:00 Multi-Ingredient Ointment (Analgesic [place]) 1 shira PRN QID PRN TP MUSCLE PAIN; Start 03/10/18 at 22:00 Al Hydroxide/Mg Hydroxide (Mylanta Plus Xs) 15 ml PRN AFTMEALHC PRN PO DYSPEPSIA; Start 03/10/18 at 22:00 Magnesium Hydroxide (Milk Of Magnesia) 2,400 mg PRN QHS PRN PO CONSTIPATION; Start 03/10/18 at 22:00 Donepezil HCl (Aricept) 10 mg DAILY PO Last administered on 03/27/18 09:26; Start 03/11/18 at 09:00 Mirtazapine (Remeron) 7.5 mg QHS PO Last administered on 03/27/18at 20:42; Start 03/10/18 at 22:30 Olanzapine (ZyPREXA) 2.5 mg PRN Q6HRS PRN PO ANXIETY / AGITATION; Start at 22:15 Melatonin 3 mg PRN QHS PRN PO INSOMNIA Last administered on 03/16/18at 19:43; Start 03/10/18 at 22:30 Amlodipine Besylate (Norvasc) 5 mg DAILY PO Last administered on 03/27/18 09:27 ; Start 03/11/18 at 09:00 Aspirin (Aspirin Enteric Coated) 81 mg DAILY PO Last administered on 03/27/18 09:26; Start 03/11/18 at 09:00 Bisacodyl (Dulcolax Supp) 10 mg PRN DAILY PRN RC CONSTIPATION; Start 03/10/18 at 22:15 Calcium/Vitamin D (Oscal D 500mg/ 200uts) 1 tab DAILY PO Last administered on 09:27; Start 03/11/18 at 09:00 Docusate Sodium (Colace) 100 mg BID PO Last administered on 03/27/18 20:44; Start 03/11/18 at 09:00 Levothyroxine Sodium (Synthroid) 50 mcg DAILYAC PO Last administered on 08:28; Start 03/11/18 at 07:30; Stop 03/12/18 at 11:22; Status DC Ondansetron HCl (Zofran Odt) 4 mg PRN Q6HRS PRN PO NAUSEA/VOMITING; Start 03/10 at 22:15 Polyethylene Glycol (miraLAX) 17 gm DAILY PO Last administered on 03/27/18 09: 26; Start 03/11/18 at 09:00 Propranolol HCl (Inderal) 10 mg TID PO Last administered on 03/27/18 09:27; Start 03/11/18 at 09:00 Potassium Chloride (Klor-Con) 40 meq 1X ONCE PO Last administered on 23:27; Start 03/10/18 at 23:15; Stop 03/10/18 at 23:22; Status DC Potassium Chloride (Klor-Con) 40 meq 1X ONCE PO Last administered on 02:40; Start 03/11/18 at 03:00; Stop 03/11/18 at 03:02; Status DC Potassium Chloride (Klor-Con) 40 meq 1X ONCE PO Last administered on 05:00; Start 03/11/18 at 05:00; Stop 03/11/18 at 05:01; Status DC Risperidone (RisperDAL) 0.25 mg QHS PO Last administered on 03/12/18 19:40; Start 03/11/18 at 21:00; Stop 03/13/18 at 20:59; Status DC Levothyroxine Sodium (Synthroid) 50 mcg DAILY06 PO Last administered on 05:57; Start 03/13/18 at 06:00 Risperidone (RisperDAL) 0.5 mg QHS PO Last administered on 03/27/18at 20:52; Start 03/13/18 at 21:00 Fluvoxamine Maleate (Luvox) 25 mg QHS PO Last administered on 03/15/18at 20:30; Start 03/13/18 at 21:00; Stop 03/16/18 at 18:21; Status DC Fluvoxamine Maleate (Luvox) 50 mg QHS PO Last administered on 03/18/18at 19:06; Start 03/16/18 at 21:00; Stop 03/19/18 at 20:59; Status DC Fluvoxamine Maleate (Luvox) 75 mg QHS PO Last administered on 03/27/18at 20:44; Start 03/19/18 at 21:00 Bupropion HCl (Wellbutrin Xl) 150 mg DAILY PO Last administered on 03/27/18at 09: 28; Start 03/27/18 at 09:00 Active Scripts Active Reported Melatonin 3 Mg Tablet 3 Mg PO PRN QHS PRN Lovenox (Enoxaparin Sodium) 40 Mg/0.4 Ml Disp.syrin 40 Mg SQ DAILY Aspirin Ec (Aspirin) 81 Mg Tablet.dr 81 Mg PO DAILY Levothyroxine Sodium 50 Mcg Tablet 50 Mcg PO DAILYAC Propranolol Hcl 10 Mg Tablet 10 Mg PO TID Polyethylene Glycol 3350 255 Gm Powder 17 Gm PO DAILY Ondansetron Odt (Ondansetron) 4 Mg Tab.rapdis 4 Mg PO PRN Q6HRS PRN Olanzapine 5 Mg Tablet 2.5 Mg PO PRN Q6HRS PRN Mirtazapine 7.5 Mg Tablet 7.5 Mg PO QHS Donepezil Hcl 10 Mg Tablet 10 Mg PO DAILY Docusate Sodium 100 Mg Capsule 100 Mg PO BID Calcium 500 + Vit D 200 Tablet (Calcium Carbonate/Vitamin D3) 1 Each Tablet 1 Each PO DAILY Bisacodyl 10 Mg Supp.rect 10 Mg RC PRN DAILY PRN Amlodipine Besylate 5 Mg Tablet 5 Mg PO DAILY I have reviewed the current psychotropics carefully including drug interactions. Risk benefit ratio favors no change other than as noted in my dictated progress note. Diagnosis: Problems: (1) Anxiety disorder (2) Impulse control disorder (3) Dementia, vascular, with delusions (4) Dementia in Alzheimer's disease with depression (5) Dementia in Alzheimer's disease with delusions LAUREL COUGHLIN MD March 27, 2018 21:13
--- NOTE | 2018-03-28 05:23 | PN ---
DATE: 03/25/2018 PSYCHIATRIC PROGRESS NOTE This late entry 03/25/2018 covers elements not covered in my initial note. SUBJECTIVE: I met with the patient in the evening. She slept 8-3/4 hours, remains quite withdrawn, isolative in her room, complains of being tired, not sleeping well at night, but in fact nursing's report irritable at times. REVIEW OF SYSTEMS: No CV, , pulmonary, eye system symptoms on review. MENTAL STATUS EXAM: Oriented to herself and situation. Speech has some latency, coherent. Abstraction fair, computation impaired, language function intact. Mood and affect still dysphoric, but improved. LABORATORIES: Reviewed. IMPRESSION: Unchanged from initial note. PLAN: Continue current psychotropics. MAN Carla COUGHLIN MD DR: YAKELIN/omar JOB#: [id number] / [id number]
[2018-03-28] MEDS: LEVOTHYROXINE 50 MCG TABLET PO SCH (05:32)
[2018-03-28 06:31] VITALS: BP 125/63
[2018-03-28] MEDS: ASPIRIN ENTERIC COATED 81 MG TABLET.DR. PO SCH (09:12)
[2018-03-28] MEDS: CALCIUM CARB/VIT D3 500/200 TABLET PO SCH (09:13)
[2018-03-28] MEDS: POLYETHYLENE GLYCOL 3350 17 GM PACKET. PO SCH (09:13)
[2018-03-28] MEDS: PROPRANOLOL 10 MG TABLET. PO SCH ×3 (09:13→20:02)
[2018-03-28] MEDS: DOCUSATE SODIUM 100 MG CAPSULE PO SCH ×2 (09:13→20:03)
[2018-03-28] MEDS: amLODIPine BESYLATE 5 MG TABLET PO SCH (09:13)
[2018-03-28] MEDS: buPROPion XL 150 MG TAB.ER.24H PO SCH (09:13)
[2018-03-28] MEDS: DONEPEZIL HCL 10 MG TABLET PO SCH (09:13)
[2018-03-28 11:11] LABS: ALBUMIN 2.7 g/dL (3.4-5.0); ALBUMIN/GLOBULIN RATIO 0.7 (1.0-1.7); CALCIUM 8.8 mg/dL (8.5-10.1); CREATININE 0.7 mg/dL (0.6-1.0); GFR 82.3; POTASSIUM 4.3 mmol/L (3.5-5.1); TOTAL BILIRUBIN 0.2 mg/dL (0.2-1.0); TOTAL PROTEIN 6.4 g/dL (6.4-8.2)
[2018-03-28 11:15] LABS: BASO % 0 % (0-3); EOS % 1 % (0-3); HEMOGLOBIN 13.5 g/dL (12.0-15.5); LYMPH # 1.3 x10^3/uL (1.0-4.8); LYMPH % 27 % (24-48); MEAN CORPUSCULAR HEMOGLOBIN 26 pg (25-35); MEAN CORPUSCULAR HGB CONC 33 g/dL (31-37); MEAN CORPUSCULAR VOLUME 80 fL (79-100); MONO # 0.3 x10^3/uL (0.0-1.1); MONO % 6 % (0-9); NEUT # 3.3 x10^3uL (1.8-7.7); NEUT % 67 % (31-73); PLATELET COUNT 323 x10^3/uL (140-400); RED BLOOD COUNT 5.13 x10^6/uL (3.50-5.40); RED CELL DISTRIBUTION WIDTH 15.1 % (11.5-14.5)
[2018-03-28 17:08] VITALS: BP 115/71
--- NOTE | 2018-03-28 18:15 | PN ---
DATE: 03/26/2018 This is a late entry for 03/26/2018 and covers the elements not covered in my initial note of 03/26/2018. SUBJECTIVE: The patient was staffed at a treatment team meeting in the morning, seen individually in the evening. She is quite withdrawn, somewhat irritable, nasty per nursing staff. Treatment team meeting addressed at length. Family has plans to move her to an assisted living in [place] and a detailed discussion about how to make this happen to help with anxiety during the air travel. REVIEW OF SYSTEMS: Ambulation is reasonable. No CV, , pulmonary, eye system symptoms on review. MENTAL STATUS EXAM: Oriented to herself and situation. Speech has some latency, coherent. Abstraction fair, computation impaired, language function intact. She is quite tired during the day. IMPRESSION: Unchanged from initial note. PLAN: Start Wellbutrin-XL 150 mg in the morning. Continue rest unchanged. MAN Carla COUGHLIN MD DR: YAKELIN/omar JOB#: [id number] / [id number]
[2018-03-28] MEDS: risperiDONE 0.5 MG TABLET. PO SCH (20:02)
[2018-03-28] MEDS: MIRTAZAPINE 7.5 MG TABLET. PO SCH (20:02)
--- NOTE | 2018-03-28 23:10 | PDOC ---
Exam Note: Ru Note: Please also refer to the separate dictated note~for this date of service dictated separately.~Patient seen individually. Discussed the patient with Nursing staff reviewed the chart.~Reviewed interim history and current functioning. Reviewed vital signs,~Labs/ Radiology~and current medications noted below. Continue current treatment with the changes noted in the dictated addendum note Assessment: Vital Signs: Vital Signs Date Time Temp Pulse Resp B/P (MAP) Pulse Ox O2 Delivery O2 Flow Rate FiO2 03/28/18 20:02 61 115/71 03/28/18 17:08 98.3 16 94 03/27/18 06:15 Room Air I&O Intake and Output 03/28/18 07:00 Intake Total 660 ml Balance 660 ml Intake Oral 660 ml Labs: Laboratory Tests Test 03/28/18 09:36 White Blood Count 5.0 x10^3/uL (4.0-11.0) Red Blood Count 5.13 x10^6/uL (3.50-5.40) Hemoglobin 13.5 g/dL (12.0-15.5) Hematocrit 41.0 % (36.0-47.0) Mean Corpuscular Volume 80 fL (79-100) Mean Corpuscular Hemoglobin 26 pg (25-35) Mean Corpuscular Hemoglobin Concent 33 g/dL (31-37) Red Cell Distribution Width 15.1 % (11.5-14.5) H Platelet Count 323 x10^3/uL (140-400) Neutrophils (%) (Auto) 67 % (31-73) Lymphocytes (%) (Auto) 27 % (24-48) Monocytes (%) (Auto) 6 % (0-9) Eosinophils (%) (Auto) 1 % (0-3) Basophils (%) (Auto) 0 % (0-3) Neutrophils # (Auto) 3.3 x10^3uL (1.8-7.7) Lymphocytes # (Auto) 1.3 x10^3/uL (1.0-4.8) Monocytes # (Auto) 0.3 x10^3/uL (0.0-1.1) Eosinophils # (Auto) 0.0 x10^3/uL (0.0-0.7) Basophils # (Auto) 0.0 x10^3/uL (0.0-0.2) Sodium Level 138 mmol/L (136-145) Potassium Level 4.3 mmol/L (3.5-5.1) Chloride Level 101 mmol/L (98-107) Carbon Dioxide Level 29 mmol/L (21-32) Anion Gap 8 (6-14) Blood Urea Nitrogen 22 mg/dL (7-20) H Creatinine 0.7 mg/dL (0.6-1.0) Estimated GFR (Cockcroft-Gault) 82.3 BUN/Creatinine Ratio 31 (6-20) H Glucose Level 194 mg/dL (70-99) H Calcium Level 8.8 mg/dL (8.5-10.1) Total Bilirubin 0.2 mg/dL (0.2-1.0) Aspartate Amino Transferase (AST) 13 U/L (15-37) L Alanine Aminotransferase (ALT) 15 U/L (14-59) Alkaline Phosphatase 66 U/L (46-116) Total Protein 6.4 g/dL (6.4-8.2) Albumin 2.7 g/dL (3.4-5.0) L Albumin/Globulin Ratio 0.7 (1.0-1.7) L Current Medications: Meds: Current Medications Acetaminophen (Tylenol) 650 mg PRN Q6HRS PRN PO PAIN / TEMP; Start 03/10/18 at 22:00 Multi-Ingredient Ointment (Analgesic [place]) 1 shira PRN QID PRN TP MUSCLE PAIN; Start 03/10/18 at 22:00 Al Hydroxide/Mg Hydroxide (Mylanta Plus Xs) 15 ml PRN AFTMEALHC PRN PO DYSPEPSIA; Start 03/10/18 at 22:00 Magnesium Hydroxide (Milk Of Magnesia) 2,400 mg PRN QHS PRN PO CONSTIPATION; Start 03/10/18 at 22:00 Donepezil HCl (Aricept) 10 mg DAILY PO Last administered on 03/28/18at 09:13; Start 03/11/18 at 09:00 Mirtazapine (Remeron) 7.5 mg QHS PO Last administered on 03/28/18at 20:02; Start 03/10/18 at 22:30 Olanzapine (ZyPREXA) 2.5 mg PRN Q6HRS PRN PO ANXIETY / AGITATION; Start at 22:15 Melatonin 3 mg PRN QHS PRN PO INSOMNIA Last administered on 03/16/18 19:43; Start 03/10/18 at 22:30 Amlodipine Besylate (Norvasc) 5 mg DAILY PO Last administered on 03/28/18 09:13 ; Start 03/11/18 at 09:00 Aspirin (Aspirin Enteric Coated) 81 mg DAILY PO Last administered on 03/28/18 09:12; Start 03/11/18 at 09:00 Bisacodyl (Dulcolax Supp) 10 mg PRN DAILY PRN RC CONSTIPATION; Start 03/10/18 at 22:15 Calcium/Vitamin D (Oscal D 500mg/ 200uts) 1 tab DAILY PO Last administered on 09:13; Start 03/11/18 at 09:00 Docusate Sodium (Colace) 100 mg BID PO Last administered on 03/28/18 20:03; Start 03/11/18 at 09:00 Levothyroxine Sodium (Synthroid) 50 mcg DAILYAC PO Last administered on 08:28; Start 03/11/18 at 07:30; Stop 03/12/18 at 11:22; Status DC Ondansetron HCl (Zofran Odt) 4 mg PRN Q6HRS PRN PO NAUSEA/VOMITING; Start 03/10 at 22:15 Polyethylene Glycol (miraLAX) 17 gm DAILY PO Last administered on 03/28/18 09: 13; Start 03/11/18 at 09:00 Propranolol HCl (Inderal) 10 mg TID PO Last administered on 03/28/18 20:02; Start 03/11/18 at 09:00 Potassium Chloride (Klor-Con) 40 meq 1X ONCE PO Last administered on 23:27; Start 03/10/18 at 23:15; Stop 03/10/18 at 23:22; Status DC Potassium Chloride (Klor-Con) 40 meq 1X ONCE PO Last administered on 02:40; Start 03/11/18 at 03:00; Stop 03/11/18 at 03:02; Status DC Potassium Chloride (Klor-Con) 40 meq 1X ONCE PO Last administered on at 05:00; Start 03/11/18 at 05:00; Stop 03/11/18 at 05:01; Status DC Risperidone (RisperDAL) 0.25 mg QHS PO Last administered on 03/12/18at 19:40; Start 03/11/18 at 21:00; Stop 03/13/18 at 20:59; Status DC Levothyroxine Sodium (Synthroid) 50 mcg DAILY06 PO Last administered on 05:32; Start 03/13/18 at 06:00 Risperidone (RisperDAL) 0.5 mg QHS PO Last administered on 03/28/18at 20:02; Start 03/13/18 at 21:00 Fluvoxamine Maleate (Luvox) 25 mg QHS PO Last administered on 03/15/18at 20:30; Start 03/13/18 at 21:00; Stop 03/16/18 at 18:21; Status DC Fluvoxamine Maleate (Luvox) 50 mg QHS PO Last administered on 03/18/18at 19:06; Start 03/16/18 at 21:00; Stop 03/19/18 at 20:59; Status DC Fluvoxamine Maleate (Luvox) 75 mg QHS PO Last administered on 03/28/18 20:02; Start 03/19/18 at 21:00 Bupropion HCl (Wellbutrin Xl) 150 mg DAILY PO Last administered on 03/28/18at 09: 13; Start 03/27/18 at 09:00 Active Scripts Active Reported Melatonin 3 Mg Tablet 3 Mg PO PRN QHS PRN Lovenox (Enoxaparin Sodium) 40 Mg/0.4 Ml Disp.syrin 40 Mg SQ DAILY Aspirin Ec (Aspirin) 81 Mg Tablet.dr 81 Mg PO DAILY Levothyroxine Sodium 50 Mcg Tablet 50 Mcg PO DAILYAC Propranolol Hcl 10 Mg Tablet 10 Mg PO TID Polyethylene Glycol 3350 255 Gm Powder 17 Gm PO DAILY Ondansetron Odt (Ondansetron) 4 Mg Tab.rapdis 4 Mg PO PRN Q6HRS PRN Olanzapine 5 Mg Tablet 2.5 Mg PO PRN Q6HRS PRN Mirtazapine 7.5 Mg Tablet 7.5 Mg PO QHS Donepezil Hcl 10 Mg Tablet 10 Mg PO DAILY Docusate Sodium 100 Mg Capsule 100 Mg PO BID Calcium 500 + Vit D 200 Tablet (Calcium Carbonate/Vitamin D3) 1 Each Tablet 1 Each PO DAILY Bisacodyl 10 Mg Supp.rect 10 Mg RC PRN DAILY PRN Amlodipine Besylate 5 Mg Tablet 5 Mg PO DAILY I have reviewed the current psychotropics carefully including drug interactions. Risk benefit ratio favors no change other than as noted in my dictated progress note. Diagnosis: Problems: (1) Anxiety disorder (2) Impulse control disorder (3) Dementia, vascular, with delusions (4) Dementia in Alzheimer's disease with depression (5) Dementia in Alzheimer's disease with delusions LAUREL COUGHLIN MD March 28, 2018 23:10
[2018-03-29] MEDS: LEVOTHYROXINE 50 MCG TABLET PO SCH (05:41)
[2018-03-29 06:22] VITALS: BP 121/64
[2018-03-29] MEDS: ASPIRIN ENTERIC COATED 81 MG TABLET.DR. PO SCH (08:54)
[2018-03-29] MEDS: DONEPEZIL HCL 10 MG TABLET PO SCH (08:54)
[2018-03-29] MEDS: DOCUSATE SODIUM 100 MG CAPSULE PO SCH ×2 (08:54→20:01)
[2018-03-29] MEDS: amLODIPine BESYLATE 5 MG TABLET PO SCH (08:55)
[2018-03-29] MEDS: PROPRANOLOL 10 MG TABLET. PO SCH ×3 (08:55→20:02)
[2018-03-29] MEDS: POLYETHYLENE GLYCOL 3350 17 GM PACKET. PO SCH (08:55)
[2018-03-29] MEDS: buPROPion XL 150 MG TAB.ER.24H PO SCH (08:56)
[2018-03-29] MEDS: CALCIUM CARB/VIT D3 500/200 TABLET PO SCH (08:56)
[2018-03-29 16:49] VITALS: BP 122/78
--- NOTE | 2018-03-29 18:58 | PDOC ---
Exam Note: Ru Note: Please also refer to the separate dictated note~for this date of service dictated separately.~Patient seen individually. Discussed the patient with Nursing staff reviewed the chart.~Reviewed interim history and current functioning. Reviewed vital signs,~Labs/ Radiology~and current medications noted below. Continue current treatment with the changes noted in the dictated addendum note Assessment: Vital Signs: Vital Signs Date Time Temp Pulse Resp B/P (MAP) Pulse Ox O2 Delivery O2 Flow Rate FiO2 03/29/18 16:49 97.5 70 18 122/78 (93) 100 03/27/18 06:15 Room Air I&O Intake and Output 03/29/18 07:00 Intake Total 840 ml Balance 840 ml Intake Oral 840 ml Current Medications: Meds: Current Medications Acetaminophen (Tylenol) 650 mg PRN Q6HRS PRN PO PAIN / TEMP; Start 03/10/18 at 22:00 Multi-Ingredient Ointment (Analgesic [place]) 1 shira PRN QID PRN TP MUSCLE PAIN; Start 03/10/18 at 22:00 Al Hydroxide/Mg Hydroxide (Mylanta Plus Xs) 15 ml PRN AFTMEALHC PRN PO DYSPEPSIA; Start 03/10/18 at 22:00 Magnesium Hydroxide (Milk Of Magnesia) 2,400 mg PRN QHS PRN PO CONSTIPATION; Start 03/10/18 at 22:00 Donepezil HCl (Aricept) 10 mg DAILY PO Last administered on 03/29/18 08:54; Start 03/11/18 at 09:00 Mirtazapine (Remeron) 7.5 mg QHS PO Last administered on 03/28/18at 20:02; Start 03/10/18 at 22:30 Olanzapine (ZyPREXA) 2.5 mg PRN Q6HRS PRN PO ANXIETY / AGITATION; Start at 22:15 Melatonin 3 mg PRN QHS PRN PO INSOMNIA Last administered on 03/16/18at 19:43; Start 03/10/18 at 22:30 Amlodipine Besylate (Norvasc) 5 mg DAILY PO Last administered on 03/29/18 08:55 ; Start 03/11/18 at 09:00 Aspirin (Aspirin Enteric Coated) 81 mg DAILY PO Last administered on 03/29/18 08:54; Start 03/11/18 at 09:00 Bisacodyl (Dulcolax Supp) 10 mg PRN DAILY PRN RC CONSTIPATION; Start 03/10/18 at 22:15 Calcium/Vitamin D (Oscal D 500mg/ 200uts) 1 tab DAILY PO Last administered on 08:56; Start 03/11/18 at 09:00 Docusate Sodium (Colace) 100 mg BID PO Last administered on 03/29/18 08:54; Start 03/11/18 at 09:00 Levothyroxine Sodium (Synthroid) 50 mcg DAILYAC PO Last administered on 08:28; Start 03/11/18 at 07:30; Stop 03/12/18 at 11:22; Status DC Ondansetron HCl (Zofran Odt) 4 mg PRN Q6HRS PRN PO NAUSEA/VOMITING; Start 03/10 at 22:15 Polyethylene Glycol (miraLAX) 17 gm DAILY PO Last administered on 03/29/18 08: 55; Start 03/11/18 at 09:00 Propranolol HCl (Inderal) 10 mg TID PO Last administered on 03/29/18 08:55; Start 03/11/18 at 09:00 Potassium Chloride (Klor-Con) 40 meq 1X ONCE PO Last administered on at 23:27; Start 03/10/18 at 23:15; Stop 03/10/18 at 23:22; Status DC Potassium Chloride (Klor-Con) 40 meq 1X ONCE PO Last administered on at 02:40; Start 03/11/18 at 03:00; Stop 03/11/18 at 03:02; Status DC Potassium Chloride (Klor-Con) 40 meq 1X ONCE PO Last administered on at 05:00; Start 03/11/18 at 05:00; Stop 03/11/18 at 05:01; Status DC Risperidone (RisperDAL) 0.25 mg QHS PO Last administered on 03/12/18at 19:40; Start 03/11/18 at 21:00; Stop 03/13/18 at 20:59; Status DC Levothyroxine Sodium (Synthroid) 50 mcg DAILY06 PO Last administered on 05:41; Start 03/13/18 at 06:00 Risperidone (RisperDAL) 0.5 mg QHS PO Last administered on 03/28/18 20:02; Start 03/13/18 at 21:00 Fluvoxamine Maleate (Luvox) 25 mg QHS PO Last administered on 03/15/18at 20:30; Start 03/13/18 at 21:00; Stop 03/16/18 at 18:21; Status DC Fluvoxamine Maleate (Luvox) 50 mg QHS PO Last administered on 03/18/18at 19:06; Start 03/16/18 at 21:00; Stop 03/19/18 at 20:59; Status DC Fluvoxamine Maleate (Luvox) 75 mg QHS PO Last administered on 03/28/18at 20:02; Start 03/19/18 at 21:00 Bupropion HCl (Wellbutrin Xl) 150 mg DAILY PO Last administered on 03/29/18at 08: 56; Start 03/27/18 at 09:00 Active Scripts Active Reported Melatonin 3 Mg Tablet 3 Mg PO PRN QHS PRN Lovenox (Enoxaparin Sodium) 40 Mg/0.4 Ml Disp.syrin 40 Mg SQ DAILY Aspirin Ec (Aspirin) 81 Mg Tablet.dr 81 Mg PO DAILY Levothyroxine Sodium 50 Mcg Tablet 50 Mcg PO DAILYAC Propranolol Hcl 10 Mg Tablet 10 Mg PO TID Polyethylene Glycol 3350 255 Gm Powder 17 Gm PO DAILY Ondansetron Odt (Ondansetron) 4 Mg Tab.rapdis 4 Mg PO PRN Q6HRS PRN Olanzapine 5 Mg Tablet 2.5 Mg PO PRN Q6HRS PRN Mirtazapine 7.5 Mg Tablet 7.5 Mg PO QHS Donepezil Hcl 10 Mg Tablet 10 Mg PO DAILY Docusate Sodium 100 Mg Capsule 100 Mg PO BID Calcium 500 + Vit D 200 Tablet (Calcium Carbonate/Vitamin D3) 1 Each Tablet 1 Each PO DAILY Bisacodyl 10 Mg Supp.rect 10 Mg RC PRN DAILY PRN Amlodipine Besylate 5 Mg Tablet 5 Mg PO DAILY I have reviewed the current psychotropics carefully including drug interactions. Risk benefit ratio favors no change other than as noted in my dictated progress note. Diagnosis: Problems: (1) Major depressive disorder, recurrent episode (2) Impulse control disorder (3) Anxiety disorder (4) Dementia in Alzheimer's disease with depression LAUREL COUGHLIN MD March 29, 2018 18:58
[2018-03-29] MEDS: MIRTAZAPINE 7.5 MG TABLET. PO SCH (20:01)
[2018-03-29] MEDS: risperiDONE 0.5 MG TABLET. PO SCH (20:02)
[2018-03-30] MEDS: LEVOTHYROXINE 50 MCG TABLET PO SCH (05:38)
[2018-03-30 06:19] VITALS: BP 113/56
[2018-03-30] MEDS: POLYETHYLENE GLYCOL 3350 17 GM PACKET. PO SCH (08:55)
[2018-03-30] MEDS: PROPRANOLOL 10 MG TABLET. PO SCH ×3 (09:00→19:46)
[2018-03-30] MEDS: ASPIRIN ENTERIC COATED 81 MG TABLET.DR. PO SCH (09:01)
[2018-03-30] MEDS: DONEPEZIL HCL 10 MG TABLET PO SCH (09:01)
[2018-03-30] MEDS: CALCIUM CARB/VIT D3 500/200 TABLET PO SCH (09:01)
[2018-03-30] MEDS: DOCUSATE SODIUM 100 MG CAPSULE PO SCH ×2 (09:01→19:45)
[2018-03-30] MEDS: buPROPion XL 150 MG TAB.ER.24H PO SCH (09:01)
[2018-03-30] MEDS: amLODIPine BESYLATE 5 MG TABLET PO SCH (09:03)
[2018-03-30 16:36] VITALS: BP 121/71
[2018-03-30] MEDS: risperiDONE 0.5 MG TABLET. PO SCH (19:45)
[2018-03-30] MEDS: MIRTAZAPINE 7.5 MG TABLET. PO SCH (19:45)
--- NOTE | 2018-03-30 21:05 | PDOC ---
Exam Note: Ru Note: Please also refer to the separate dictated note~for this date of service dictated separately.~Patient seen individually. Discussed the patient with Nursing staff reviewed the chart.~Reviewed interim history and current functioning. Reviewed vital signs,~Labs/ Radiology~and current medications noted below. Continue current treatment with the changes noted in the dictated addendum note Assessment: Vital Signs: Vital Signs Date Time Temp Pulse Resp B/P (MAP) Pulse Ox O2 Delivery O2 Flow Rate FiO2 03/30/18 19:46 68 121/71 03/30/18 16:36 97.7 20 98 03/27/18 06:15 Room Air I&O Intake and Output 03/30/18 07:00 Intake Total 620 ml Balance 620 ml Intake Oral 620 ml Current Medications: Meds: Current Medications Acetaminophen (Tylenol) 650 mg PRN Q6HRS PRN PO PAIN / TEMP; Start 03/10/18 at 22:00 Multi-Ingredient Ointment (Analgesic [place]) 1 shira PRN QID PRN TP MUSCLE PAIN; Start 03/10/18 at 22:00 Al Hydroxide/Mg Hydroxide (Mylanta Plus Xs) 15 ml PRN AFTMEALHC PRN PO DYSPEPSIA; Start 03/10/18 at 22:00 Magnesium Hydroxide (Milk Of Magnesia) 2,400 mg PRN QHS PRN PO CONSTIPATION; Start 03/10/18 at 22:00 Donepezil HCl (Aricept) 10 mg DAILY PO Last administered on 03/30/18 09:01; Start 03/11/18 at 09:00 Mirtazapine (Remeron) 7.5 mg QHS PO Last administered on 03/30/18at 19:45; Start 03/10/18 at 22:30 Olanzapine (ZyPREXA) 2.5 mg PRN Q6HRS PRN PO ANXIETY / AGITATION; Start at 22:15 Melatonin 3 mg PRN QHS PRN PO INSOMNIA Last administered on 03/16/18at 19:43; Start 03/10/18 at 22:30 Amlodipine Besylate (Norvasc) 5 mg DAILY PO Last administered on 03/30/18 09:03 ; Start 03/11/18 at 09:00 Aspirin (Aspirin Enteric Coated) 81 mg DAILY PO Last administered on 5/7/18at 09:01; Start 03/11/18 at 09:00 Bisacodyl (Dulcolax Supp) 10 mg PRN DAILY PRN RC CONSTIPATION; Start 03/10/18 at 22:15 Calcium/Vitamin D (Oscal D 500mg/ 200uts) 1 tab DAILY PO Last administered on 09:01; Start 03/11/18 at 09:00 Docusate Sodium (Colace) 100 mg BID PO Last administered on 03/30/18 19:45; Start 03/11/18 at 09:00 Levothyroxine Sodium (Synthroid) 50 mcg DAILYAC PO Last administered on 08:28; Start 03/11/18 at 07:30; Stop 03/12/18 at 11:22; Status DC Ondansetron HCl (Zofran Odt) 4 mg PRN Q6HRS PRN PO NAUSEA/VOMITING; Start 03/10 at 22:15 Polyethylene Glycol (miraLAX) 17 gm DAILY PO Last administered on 03/30/18 08: 55; Start 03/11/18 at 09:00 Propranolol HCl (Inderal) 10 mg TID PO Last administered on 03/30/18 19:46; Start 03/11/18 at 09:00 Potassium Chloride (Klor-Con) 40 meq 1X ONCE PO Last administered on 23:27; Start 03/10/18 at 23:15; Stop 03/10/18 at 23:22; Status DC Potassium Chloride (Klor-Con) 40 meq 1X ONCE PO Last administered on 02:40; Start 03/11/18 at 03:00; Stop 03/11/18 at 03:02; Status DC Potassium Chloride (Klor-Con) 40 meq 1X ONCE PO Last administered on at 05:00; Start 03/11/18 at 05:00; Stop 03/11/18 at 05:01; Status DC Risperidone (RisperDAL) 0.25 mg QHS PO Last administered on 03/12/18 19:40; Start 03/11/18 at 21:00; Stop 03/13/18 at 20:59; Status DC Levothyroxine Sodium (Synthroid) 50 mcg DAILY06 PO Last administered on 05:38; Start 03/13/18 at 06:00 Risperidone (RisperDAL) 0.5 mg QHS PO Last administered on 03/30/18at 19:45; Start 03/13/18 at 21:00 Fluvoxamine Maleate (Luvox) 25 mg QHS PO Last administered on 03/15/18 20:30; Start 03/13/18 at 21:00; Stop 03/16/18 at 18:21; Status DC Fluvoxamine Maleate (Luvox) 50 mg QHS PO Last administered on 03/18/18at 19:06; Start 03/16/18 at 21:00; Stop 03/19/18 at 20:59; Status DC Fluvoxamine Maleate (Luvox) 75 mg QHS PO Last administered on 03/30/18at 19:46; Start 03/19/18 at 21:00 Bupropion HCl (Wellbutrin Xl) 150 mg DAILY PO Last administered on 03/30/18at 09: 01; Start 03/27/18 at 09:00 Active Scripts Active Reported Melatonin 3 Mg Tablet 3 Mg PO PRN QHS PRN Lovenox (Enoxaparin Sodium) 40 Mg/0.4 Ml Disp.syrin 40 Mg SQ DAILY Aspirin Ec (Aspirin) 81 Mg Tablet.dr 81 Mg PO DAILY Levothyroxine Sodium 50 Mcg Tablet 50 Mcg PO DAILYAC Propranolol Hcl 10 Mg Tablet 10 Mg PO TID Polyethylene Glycol 3350 255 Gm Powder 17 Gm PO DAILY Ondansetron Odt (Ondansetron) 4 Mg Tab.rapdis 4 Mg PO PRN Q6HRS PRN Olanzapine 5 Mg Tablet 2.5 Mg PO PRN Q6HRS PRN Mirtazapine 7.5 Mg Tablet 7.5 Mg PO QHS Donepezil Hcl 10 Mg Tablet 10 Mg PO DAILY Docusate Sodium 100 Mg Capsule 100 Mg PO BID Calcium 500 + Vit D 200 Tablet (Calcium Carbonate/Vitamin D3) 1 Each Tablet 1 Each PO DAILY Bisacodyl 10 Mg Supp.rect 10 Mg RC PRN DAILY PRN Amlodipine Besylate 5 Mg Tablet 5 Mg PO DAILY I have reviewed the current psychotropics carefully including drug interactions. Risk benefit ratio favors no change other than as noted in my dictated progress note. Diagnosis: Problems: (1) Anxiety disorder (2) Impulse control disorder (3) Dementia, vascular, with delusions (4) Dementia in Alzheimer's disease with depression (5) Dementia in Alzheimer's disease with delusions (6) Major depressive disorder, recurrent episode LAUREL COUGHLIN MD March 30, 2018 21:05
[2018-03-31] MEDS: LEVOTHYROXINE 50 MCG TABLET PO SCH (05:53)
--- NOTE | 2018-03-31 06:00 | PN ---
DATE: 03/27/2018 This is a late entry for 03/27/2018 and covers the elements not covered in my initial note of 03/27/2018. SUBJECTIVE: The patient slept 8-1/2 hours. She did walk out to the day room for a short while today, which is an improvement, less irritable. REVIEW OF SYSTEMS: No CV, , pulmonary, eye system symptoms on review. She still resents a roommate snoring. MENTAL STATUS EXAM: Oriented to herself and situation. Speech has some latency, coherent, often responses monosyllabic. Abstraction fair, computation impaired, language function intact. Mood and affect somewhat withdrawn, spends much time in her room. LABORATORY DATA: Reviewed. IMPRESSION: Unchanged from initial note. PLAN: Unchanged from initial note. MAN Carla COUGHLIN MD DR: YAKELIN/omar JOB#: [id number] / [id number]
[2018-03-31 06:02] VITALS: BP 124/72
--- NOTE | 2018-03-31 06:02 | PN ---
DATE: 03/29/2018 This is a late entry for 03/29/2018 and covers elements not covered in my initial note of 03/29/2018. I met with the patient in the evening. She slept 9-1/4 hours previous night, had emesis at lunchtime. Affect is little better per nursing report. REVIEW OF SYSTEMS: No CV, , pulmonary, eye, ENT system symptoms on review. Reliability fair. MENTAL STATUS EXAM: Oriented to herself and situation. Speech coherent, has some latency, often responses monosyllabic. Abstraction fair, computation impaired, language function intact. Mood and affect less withdrawn. LABORATORY DATA: Reviewed. IMPRESSION: Unchanged from initial note. PLAN: No change from initial note. MAN Carla COUGHLIN MD DR: YAKELIN/omar JOB#: [id number] / [id number]
--- NOTE | 2018-03-31 06:12 | PN ---
DATE: 03/28/2018 This is a late entry for 03/28/2018 and covers the elements not covered in my initial note. SUBJECTIVE: I met with the patient in the evening. The patient remains withdrawn in her room, does come out to the day room, cooperative with meds. REVIEW OF SYSTEMS: No CV, , pulmonary, eye system symptoms on review. Reliability poor at times. MENTAL STATUS EXAM: Oriented to herself situations. We did address at length, daughter's plans to move her to [place] and she is ambivalent about this. We discussed pros and cons of this. Speech moderate latency, often responses monosyllabic. Abstraction fair, computation impaired. Mood and affect remains withdrawn. LABORATORY DATA: Reviewed. IMPRESSION: Unchanged from initial note. PLAN: Same as my initial note. MAN Carla COUGHLIN MD DR: YAKELIN/omar JOB#: [id number] / [id number]
[2018-03-31] MEDS: PROPRANOLOL 10 MG TABLET. PO SCH ×3 (08:26→20:48)
[2018-03-31] MEDS: amLODIPine BESYLATE 5 MG TABLET PO SCH (08:27)
[2018-03-31] MEDS: buPROPion XL 150 MG TAB.ER.24H PO SCH (08:27)
[2018-03-31] MEDS: CALCIUM CARB/VIT D3 500/200 TABLET PO SCH (08:27)
[2018-03-31] MEDS: DONEPEZIL HCL 10 MG TABLET PO SCH (08:27)
[2018-03-31] MEDS: DOCUSATE SODIUM 100 MG CAPSULE PO SCH ×2 (08:28→20:48)
[2018-03-31] MEDS: POLYETHYLENE GLYCOL 3350 17 GM PACKET. PO SCH (08:28)
[2018-03-31] MEDS: ASPIRIN ENTERIC COATED 81 MG TABLET.DR. PO SCH (08:28)
[2018-03-31 16:21] VITALS: BP 125/64
[2018-03-31] MEDS: risperiDONE 0.5 MG TABLET. PO SCH (20:48)
[2018-03-31] MEDS: MIRTAZAPINE 7.5 MG TABLET. PO SCH (20:48)
--- NOTE | 2018-03-31 21:05 | PDOC ---
Exam Note: Ru Note: Please also refer to the separate dictated note~for this date of service dictated separately.~Patient seen individually. Discussed the patient with Nursing staff reviewed the chart.~Reviewed interim history and current functioning. Reviewed vital signs,~Labs/ Radiology~and current medications noted below. Continue current treatment with the changes noted in the dictated addendum note Assessment: Vital Signs: Vital Signs Date Time Temp Pulse Resp B/P (MAP) Pulse Ox O2 Delivery O2 Flow Rate FiO2 03/31/18 20:48 60 125/64 03/31/18 16:21 98.1 18 99 03/31/18 06:02 Room Air I&O Intake and Output 03/31/18 07:00 Intake Total 530 ml Balance 530 ml Intake Oral 530 ml Current Medications: Meds: Current Medications Acetaminophen (Tylenol) 650 mg PRN Q6HRS PRN PO PAIN / TEMP; Start 03/10/18 at 22:00 Multi-Ingredient Ointment (Analgesic [place]) 1 shira PRN QID PRN TP MUSCLE PAIN; Start 03/10/18 at 22:00 Al Hydroxide/Mg Hydroxide (Mylanta Plus Xs) 15 ml PRN AFTMEALHC PRN PO DYSPEPSIA; Start 03/10/18 at 22:00 Magnesium Hydroxide (Milk Of Magnesia) 2,400 mg PRN QHS PRN PO CONSTIPATION; Start 03/10/18 at 22:00 Donepezil HCl (Aricept) 10 mg DAILY PO Last administered on 03/31/18 08:27; Start 03/11/18 at 09:00 Mirtazapine (Remeron) 7.5 mg QHS PO Last administered on 03/31/18at 20:48; Start 03/10/18 at 22:30 Olanzapine (ZyPREXA) 2.5 mg PRN Q6HRS PRN PO ANXIETY / AGITATION; Start at 22:15 Melatonin 3 mg PRN QHS PRN PO INSOMNIA Last administered on 03/16/18at 19:43; Start 03/10/18 at 22:30 Amlodipine Besylate (Norvasc) 5 mg DAILY PO Last administered on 03/31/18 08:27 ; Start 03/11/18 at 09:00 Aspirin (Aspirin Enteric Coated) 81 mg DAILY PO Last administered on 03/31/18 08:28; Start 03/11/18 at 09:00 Bisacodyl (Dulcolax Supp) 10 mg PRN DAILY PRN RC CONSTIPATION; Start 03/10/18 at 22:15 Calcium/Vitamin D (Oscal D 500mg/ 200uts) 1 tab DAILY PO Last administered on 08:27; Start 03/11/18 at 09:00 Docusate Sodium (Colace) 100 mg BID PO Last administered on 03/31/18 20:48; Start 03/11/18 at 09:00 Levothyroxine Sodium (Synthroid) 50 mcg DAILYAC PO Last administered on 08:28; Start 03/11/18 at 07:30; Stop 03/12/18 at 11:22; Status DC Ondansetron HCl (Zofran Odt) 4 mg PRN Q6HRS PRN PO NAUSEA/VOMITING; Start 03/10 at 22:15 Polyethylene Glycol (miraLAX) 17 gm DAILY PO Last administered on 03/31/18 08: 28; Start 03/11/18 at 09:00 Propranolol HCl (Inderal) 10 mg TID PO Last administered on 03/31/18 20:48; Start 03/11/18 at 09:00 Potassium Chloride (Klor-Con) 40 meq 1X ONCE PO Last administered on 23:27; Start 03/10/18 at 23:15; Stop 03/10/18 at 23:22; Status DC Potassium Chloride (Klor-Con) 40 meq 1X ONCE PO Last administered on 02:40; Start 03/11/18 at 03:00; Stop 03/11/18 at 03:02; Status DC Potassium Chloride (Klor-Con) 40 meq 1X ONCE PO Last administered on 05:00; Start 03/11/18 at 05:00; Stop 03/11/18 at 05:01; Status DC Risperidone (RisperDAL) 0.25 mg QHS PO Last administered on 03/12/18 19:40; Start 03/11/18 at 21:00; Stop 03/13/18 at 20:59; Status DC Levothyroxine Sodium (Synthroid) 50 mcg DAILY06 PO Last administered on 5/8/ 18at 05:53; Start 03/13/18 at 06:00 Risperidone (RisperDAL) 0.5 mg QHS PO Last administered on 03/31/18at 20:48; Start 03/13/18 at 21:00 Fluvoxamine Maleate (Luvox) 25 mg QHS PO Last administered on 03/15/18at 20:30; Start 03/13/18 at 21:00; Stop 03/16/18 at 18:21; Status DC Fluvoxamine Maleate (Luvox) 50 mg QHS PO Last administered on 03/18/18at 19:06; Start 03/16/18 at 21:00; Stop 03/19/18 at 20:59; Status DC Fluvoxamine Maleate (Luvox) 75 mg QHS PO Last administered on 03/31/18at 20:48; Start 03/19/18 at 21:00 Bupropion HCl (Wellbutrin Xl) 150 mg DAILY PO Last administered on 03/31/18at 08: 27; Start 03/27/18 at 09:00 Active Scripts Active Reported Melatonin 3 Mg Tablet 3 Mg PO PRN QHS PRN Lovenox (Enoxaparin Sodium) 40 Mg/0.4 Ml Disp.syrin 40 Mg SQ DAILY Aspirin Ec (Aspirin) 81 Mg Tablet.dr 81 Mg PO DAILY Levothyroxine Sodium 50 Mcg Tablet 50 Mcg PO DAILYAC Propranolol Hcl 10 Mg Tablet 10 Mg PO TID Polyethylene Glycol 3350 255 Gm Powder 17 Gm PO DAILY Ondansetron Odt (Ondansetron) 4 Mg Tab.rapdis 4 Mg PO PRN Q6HRS PRN Olanzapine 5 Mg Tablet 2.5 Mg PO PRN Q6HRS PRN Mirtazapine 7.5 Mg Tablet 7.5 Mg PO QHS Donepezil Hcl 10 Mg Tablet 10 Mg PO DAILY Docusate Sodium 100 Mg Capsule 100 Mg PO BID Calcium 500 + Vit D 200 Tablet (Calcium Carbonate/Vitamin D3) 1 Each Tablet 1 Each PO DAILY Bisacodyl 10 Mg Supp.rect 10 Mg RC PRN DAILY PRN Amlodipine Besylate 5 Mg Tablet 5 Mg PO DAILY I have reviewed the current psychotropics carefully including drug interactions. Risk benefit ratio favors no change other than as noted in my dictated progress note. Diagnosis: Problems: (1) Anxiety disorder (2) Impulse control disorder (3) Dementia, vascular, with delusions (4) Dementia in Alzheimer's disease with depression (5) Dementia in Alzheimer's disease with delusions (6) Major depressive disorder, recurrent episode LAUREL COUGHLIN MD March 31, 2018 21:05
--- NOTE | 2018-04-01 00:30 | PN ---
DATE: 03/30/2018 PSYCHIATRIC PROGRESS NOTE This late entry 03/30/2018 covers elements not covered in my initial note of 03/30/2018. SUBJECTIVE: Met with the patient in the evening of 03/30/2018 in her room. She slept 9-1/2 hours, somewhat withdrawn, quiet, compliant with medications, cooperative. Psychotic symptoms are much improved. REVIEW OF SYSTEMS: No CV, , pulmonary, eye, ENT system symptoms on review. MENTAL STATUS EXAM: Oriented to herself, situation. Speech has some latency, coherent. Abstraction fair, computation is impaired, language function intact, attention span short. Mood and affect is withdrawn. LABORATORY DATA: Reviewed. IMPRESSION: Unchanged from initial note. PLAN: Continue psychotropics mentioned in my initial note. MAN Carla COUGHLIN MD DR: YAKELIN/omar JOB#: [id number] / [id number]
[2018-04-01 05:55] VITALS: BP 134/59
[2018-04-01] MEDS: LEVOTHYROXINE 50 MCG TABLET PO SCH (06:08)
[2018-04-01] MEDS: PROPRANOLOL 10 MG TABLET. PO SCH ×3 (09:00→20:21)
[2018-04-01] MEDS: DONEPEZIL HCL 10 MG TABLET PO SCH (09:01)
[2018-04-01] MEDS: ASPIRIN ENTERIC COATED 81 MG TABLET.DR. PO SCH (09:01)
[2018-04-01] MEDS: CALCIUM CARB/VIT D3 500/200 TABLET PO SCH (09:02)
[2018-04-01] MEDS: buPROPion XL 150 MG TAB.ER.24H PO SCH (09:02)
[2018-04-01] MEDS: POLYETHYLENE GLYCOL 3350 17 GM PACKET. PO SCH (09:02)
[2018-04-01] MEDS: amLODIPine BESYLATE 5 MG TABLET PO SCH (09:02)
[2018-04-01] MEDS: DOCUSATE SODIUM 100 MG CAPSULE PO SCH ×2 (09:02→20:21)
[2018-04-01 18:24] VITALS: BP 118/63
[2018-04-01] MEDS ORDERED: ZOLPIDEM 5 MG TABLET. PO PRN (18:30)
[2018-04-01] MEDS: MIRTAZAPINE 7.5 MG TABLET. PO SCH (20:21)
[2018-04-01] MEDS: risperiDONE 0.5 MG TABLET. PO SCH (20:22)
--- NOTE | 2018-04-01 22:25 | PDOC ---
Exam Note: Ru Note: Please also refer to the separate dictated note~for this date of service dictated separately.~Patient seen individually. Discussed the patient with Nursing staff reviewed the chart.~Reviewed interim history and current functioning. Reviewed vital signs,~Labs/ Radiology~and current medications noted below. Continue current treatment with the changes noted in the dictated addendum note Assessment: Vital Signs: Vital Signs Date Time Temp Pulse Resp B/P (MAP) Pulse Ox O2 Delivery O2 Flow Rate FiO2 04/01/18 20:21 68 118/63 04/01/18 18:24 97.8 16 97 04/01/18 05:55 Room Air I&O Intake and Output 04/01/18 07:00 Intake Total 820 ml Balance 820 ml Intake Oral 820 ml Current Medications: Meds: Current Medications Acetaminophen (Tylenol) 650 mg PRN Q6HRS PRN PO PAIN / TEMP; Start 03/10/18 at 22:00 Multi-Ingredient Ointment (Analgesic [place]) 1 shira PRN QID PRN TP MUSCLE PAIN; Start 03/10/18 at 22:00 Al Hydroxide/Mg Hydroxide (Mylanta Plus Xs) 15 ml PRN AFTMEALHC PRN PO DYSPEPSIA; Start 03/10/18 at 22:00 Magnesium Hydroxide (Milk Of Magnesia) 2,400 mg PRN QHS PRN PO CONSTIPATION; Start 03/10/18 at 22:00 Donepezil HCl (Aricept) 10 mg DAILY PO Last administered on 04/01/18 09:01; Start 03/11/18 at 09:00 Mirtazapine (Remeron) 7.5 mg QHS PO Last administered on 04/01/18 20:21; Start 03/10/18 at 22:30 Olanzapine (ZyPREXA) 2.5 mg PRN Q6HRS PRN PO ANXIETY / AGITATION; Start at 22:15 Melatonin 3 mg PRN QHS PRN PO INSOMNIA Last administered on 03/16/18at 19:43; Start 03/10/18 at 22:30 Amlodipine Besylate (Norvasc) 5 mg DAILY PO Last administered on 04/01/18 09:02 ; Start 03/11/18 at 09:00 Aspirin (Aspirin Enteric Coated) 81 mg DAILY PO Last administered on 04/01/18 09:01; Start 03/11/18 at 09:00 Bisacodyl (Dulcolax Supp) 10 mg PRN DAILY PRN RC CONSTIPATION; Start 03/10/18 at 22:15 Calcium/Vitamin D (Oscal D 500mg/ 200uts) 1 tab DAILY PO Last administered on 09:02; Start 03/11/18 at 09:00 Docusate Sodium (Colace) 100 mg BID PO Last administered on 04/01/18 20:21; Start 03/11/18 at 09:00 Levothyroxine Sodium (Synthroid) 50 mcg DAILYAC PO Last administered on 08:28; Start 03/11/18 at 07:30; Stop 03/12/18 at 11:22; Status DC Ondansetron HCl (Zofran Odt) 4 mg PRN Q6HRS PRN PO NAUSEA/VOMITING; Start 03/10 at 22:15 Polyethylene Glycol (miraLAX) 17 gm DAILY PO Last administered on 04/01/18 09: 02; Start 03/11/18 at 09:00 Propranolol HCl (Inderal) 10 mg TID PO Last administered on 04/01/18 20:21; Start 03/11/18 at 09:00 Potassium Chloride (Klor-Con) 40 meq 1X ONCE PO Last administered on 23:27; Start 03/10/18 at 23:15; Stop 03/10/18 at 23:22; Status DC Potassium Chloride (Klor-Con) 40 meq 1X ONCE PO Last administered on 02:40; Start 03/11/18 at 03:00; Stop 03/11/18 at 03:02; Status DC Potassium Chloride (Klor-Con) 40 meq 1X ONCE PO Last administered on 05:00; Start 03/11/18 at 05:00; Stop 03/11/18 at 05:01; Status DC Risperidone (RisperDAL) 0.25 mg QHS PO Last administered on 03/12/18 19:40; Start 03/11/18 at 21:00; Stop 03/13/18 at 20:59; Status DC Levothyroxine Sodium (Synthroid) 50 mcg DAILY06 PO Last administered on 5/9/ 18at 06:08; Start 03/13/18 at 06:00 Risperidone (RisperDAL) 0.5 mg QHS PO Last administered on 04/01/18at 20:22; Start 03/13/18 at 21:00 Fluvoxamine Maleate (Luvox) 25 mg QHS PO Last administered on 03/15/18at 20:30; Start 03/13/18 at 21:00; Stop 03/16/18 at 18:21; Status DC Fluvoxamine Maleate (Luvox) 50 mg QHS PO Last administered on 03/18/18at 19:06; Start 03/16/18 at 21:00; Stop 03/19/18 at 20:59; Status DC Fluvoxamine Maleate (Luvox) 75 mg QHS PO Last administered on 04/01/18at 20:22; Start 03/19/18 at 21:00 Bupropion HCl (Wellbutrin Xl) 150 mg DAILY PO Last administered on 04/01/18at 09: 02; Start 03/27/18 at 09:00 Zolpidem Tartrate (Ambien) 5 mg PRN QHS PRN PO INSOMNIA; Start 04/01/18 at 18:30 Active Scripts Active Reported Melatonin 3 Mg Tablet 3 Mg PO PRN QHS PRN Lovenox (Enoxaparin Sodium) 40 Mg/0.4 Ml Disp.syrin 40 Mg SQ DAILY Aspirin Ec (Aspirin) 81 Mg Tablet.dr 81 Mg PO DAILY Levothyroxine Sodium 50 Mcg Tablet 50 Mcg PO DAILYAC Propranolol Hcl 10 Mg Tablet 10 Mg PO TID Polyethylene Glycol 3350 255 Gm Powder 17 Gm PO DAILY Ondansetron Odt (Ondansetron) 4 Mg Tab.rapdis 4 Mg PO PRN Q6HRS PRN Olanzapine 5 Mg Tablet 2.5 Mg PO PRN Q6HRS PRN Mirtazapine 7.5 Mg Tablet 7.5 Mg PO QHS Donepezil Hcl 10 Mg Tablet 10 Mg PO DAILY Docusate Sodium 100 Mg Capsule 100 Mg PO BID Calcium 500 + Vit D 200 Tablet (Calcium Carbonate/Vitamin D3) 1 Each Tablet 1 Each PO DAILY Bisacodyl 10 Mg Supp.rect 10 Mg RC PRN DAILY PRN Amlodipine Besylate 5 Mg Tablet 5 Mg PO DAILY I have reviewed the current psychotropics carefully including drug interactions. Risk benefit ratio favors no change other than as noted in my dictated progress note. Diagnosis: Problems: (1) Anxiety disorder (2) Impulse control disorder (3) Dementia, vascular, with delusions (4) Dementia in Alzheimer's disease with depression (5) Dementia in Alzheimer's disease with delusions (6) Major depressive disorder, recurrent episode LAUREL COUGHLIN MD April 01, 2018 22:25
--- NOTE | 2018-04-02 02:54 | PN ---
DATE: 03/31/2018 This is a late entry of 03/31/2018 covers elements not covered in my initial note of 03/31/2018. SUBJECTIVE: I met with the patient in the evening in her room. She remains withdrawn, spends much time in her room, but states her daughter visited her. I during the individual visit addressed her plans to go to [place] and social service staff have discussed this with me as well. Apparently, the daughter has her booked for a flight 07:00 a.m. Friday. The patient is accepting of it "I am thinking about it." REVIEW OF SYSTEMS: No CV, , pulmonary, eye system symptoms on review. MENTAL STATUS EXAM: Oriented to herself and situation. Speech has some latency, coherent. Abstraction fair, computation impaired, language function intact. Mood and affect, still withdrawn, but improved, less psychotic. LABORATORY DATA: Reviewed. IMPRESSION: Unchanged from initial note. PLAN: Continue current psychotropics from initial note. LAUREL COUGHLIN MD DR: YAKELIN/omar JOB#: [id number] / [id number]
[2018-04-02 06:00] VITALS: BP 139/60
[2018-04-02] MEDS: LEVOTHYROXINE 50 MCG TABLET PO SCH (06:00)
[2018-04-02] MEDS: CALCIUM CARB/VIT D3 500/200 TABLET PO SCH (09:19)
[2018-04-02] MEDS: amLODIPine BESYLATE 5 MG TABLET PO SCH (09:19)
[2018-04-02] MEDS: DONEPEZIL HCL 10 MG TABLET PO SCH (09:19)
[2018-04-02] MEDS: buPROPion XL 150 MG TAB.ER.24H PO SCH (09:19)
[2018-04-02] MEDS: POLYETHYLENE GLYCOL 3350 17 GM PACKET. PO SCH (09:20)
[2018-04-02] MEDS: DOCUSATE SODIUM 100 MG CAPSULE PO SCH ×2 (09:20→21:14)
[2018-04-02] MEDS: ASPIRIN ENTERIC COATED 81 MG TABLET.DR. PO SCH (09:20)
[2018-04-02] MEDS: PROPRANOLOL 10 MG TABLET. PO SCH ×3 (09:20→21:14)
[2018-04-02 18:24] VITALS: BP 120/72
--- NOTE | 2018-04-02 21:00 | PDOC ---
Exam Note: Ru Note: Please also refer to the separate dictated note~for this date of service dictated separately.~Patient seen individually. Discussed the patient with Nursing staff reviewed the chart.~Reviewed interim history and current functioning. Reviewed vital signs,~Labs/ Radiology~and current medications noted below. Continue current treatment with the changes noted in the dictated addendum note Assessment: Vital Signs: Vital Signs Date Time Temp Pulse Resp B/P (MAP) Pulse Ox O2 Delivery O2 Flow Rate FiO2 04/02/18 18:24 97.6 88 18 120/72 (88) 99 04/02/18 06:00 Room Air I&O Intake and Output 04/02/18 07:00 Intake Total 870 ml Balance 870 ml Intake Oral 870 ml # Voids 1 Current Medications: Meds: Current Medications Acetaminophen (Tylenol) 650 mg PRN Q6HRS PRN PO PAIN / TEMP; Start 03/10/18 at 22:00 Multi-Ingredient Ointment (Analgesic [place]) 1 shira PRN QID PRN TP MUSCLE PAIN; Start 03/10/18 at 22:00 Al Hydroxide/Mg Hydroxide (Mylanta Plus Xs) 15 ml PRN AFTMEALHC PRN PO DYSPEPSIA; Start 03/10/18 at 22:00 Magnesium Hydroxide (Milk Of Magnesia) 2,400 mg PRN QHS PRN PO CONSTIPATION; Start 03/10/18 at 22:00 Donepezil HCl (Aricept) 10 mg DAILY PO Last administered on 04/02/18at 09:19; Start 03/11/18 at 09:00 Mirtazapine (Remeron) 7.5 mg QHS PO Last administered on 04/01/18at 20:21; Start 03/10/18 at 22:30 Olanzapine (ZyPREXA) 2.5 mg PRN Q6HRS PRN PO ANXIETY / AGITATION; Start at 22:15 Melatonin 3 mg PRN QHS PRN PO INSOMNIA Last administered on 03/16/18at 19:43; Start 03/10/18 at 22:30 Amlodipine Besylate (Norvasc) 5 mg DAILY PO Last administered on 04/02/18 09: 19; Start 03/11/18 at 09:00 Aspirin (Aspirin Enteric Coated) 81 mg DAILY PO Last administered on 04/02/18at 09:20; Start 03/11/18 at 09:00 Bisacodyl (Dulcolax Supp) 10 mg PRN DAILY PRN RC CONSTIPATION; Start 03/10/18 at 22:15 Calcium/Vitamin D (Oscal D 500mg/ 200uts) 1 tab DAILY PO Last administered on 09:19; Start 03/11/18 at 09:00 Docusate Sodium (Colace) 100 mg BID PO Last administered on 04/02/18 09:20; Start 03/11/18 at 09:00 Levothyroxine Sodium (Synthroid) 50 mcg DAILYAC PO Last administered on 08:28; Start 03/11/18 at 07:30; Stop 03/12/18 at 11:22; Status DC Ondansetron HCl (Zofran Odt) 4 mg PRN Q6HRS PRN PO NAUSEA/VOMITING; Start 03/10 at 22:15 Polyethylene Glycol (miraLAX) 17 gm DAILY PO Last administered on 04/02/18 09: 20; Start 03/11/18 at 09:00 Propranolol HCl (Inderal) 10 mg TID PO Last administered on 04/02/18 09:20; Start 03/11/18 at 09:00 Potassium Chloride (Klor-Con) 40 meq 1X ONCE PO Last administered on 23:27; Start 03/10/18 at 23:15; Stop 03/10/18 at 23:22; Status DC Potassium Chloride (Klor-Con) 40 meq 1X ONCE PO Last administered on at 02:40; Start 03/11/18 at 03:00; Stop 03/11/18 at 03:02; Status DC Potassium Chloride (Klor-Con) 40 meq 1X ONCE PO Last administered on 05:00; Start 03/11/18 at 05:00; Stop 03/11/18 at 05:01; Status DC Risperidone (RisperDAL) 0.25 mg QHS PO Last administered on 03/12/18 19:40; Start 03/11/18 at 21:00; Stop 03/13/18 at 20:59; Status DC Levothyroxine Sodium (Synthroid) 50 mcg DAILY06 PO Last administered on 5/10/ 18at 06:00; Start 03/13/18 at 06:00 Risperidone (RisperDAL) 0.5 mg QHS PO Last administered on 04/01/18at 20:22; Start 03/13/18 at 21:00 Fluvoxamine Maleate (Luvox) 25 mg QHS PO Last administered on 03/15/18at 20:30; Start 03/13/18 at 21:00; Stop 03/16/18 at 18:21; Status DC Fluvoxamine Maleate (Luvox) 50 mg QHS PO Last administered on 03/18/18at 19:06; Start 03/16/18 at 21:00; Stop 03/19/18 at 20:59; Status DC Fluvoxamine Maleate (Luvox) 75 mg QHS PO Last administered on 04/01/18at 20:22; Start 03/19/18 at 21:00 Bupropion HCl (Wellbutrin Xl) 150 mg DAILY PO Last administered on 04/02/18at 09 :19; Start 03/27/18 at 09:00 Zolpidem Tartrate (Ambien) 5 mg PRN QHS PRN PO INSOMNIA; Start 04/01/18 at 18:30 Active Scripts Active Reported Melatonin 3 Mg Tablet 3 Mg PO PRN QHS PRN Lovenox (Enoxaparin Sodium) 40 Mg/0.4 Ml Disp.syrin 40 Mg SQ DAILY Aspirin Ec (Aspirin) 81 Mg Tablet.dr 81 Mg PO DAILY Levothyroxine Sodium 50 Mcg Tablet 50 Mcg PO DAILYAC Propranolol Hcl 10 Mg Tablet 10 Mg PO TID Polyethylene Glycol 3350 255 Gm Powder 17 Gm PO DAILY Ondansetron Odt (Ondansetron) 4 Mg Tab.rapdis 4 Mg PO PRN Q6HRS PRN Olanzapine 5 Mg Tablet 2.5 Mg PO PRN Q6HRS PRN Mirtazapine 7.5 Mg Tablet 7.5 Mg PO QHS Donepezil Hcl 10 Mg Tablet 10 Mg PO DAILY Docusate Sodium 100 Mg Capsule 100 Mg PO BID Calcium 500 + Vit D 200 Tablet (Calcium Carbonate/Vitamin D3) 1 Each Tablet 1 Each PO DAILY Bisacodyl 10 Mg Supp.rect 10 Mg RC PRN DAILY PRN Amlodipine Besylate 5 Mg Tablet 5 Mg PO DAILY I have reviewed the current psychotropics carefully including drug interactions. Risk benefit ratio favors no change other than as noted in my dictated progress note. Diagnosis: Problems: (1) Anxiety disorder (2) Impulse control disorder (3) Dementia, vascular, with delusions (4) Dementia in Alzheimer's disease with depression (5) Dementia in Alzheimer's disease with delusions (6) Major depressive disorder, recurrent episode LAUREL COUGHLIN MD April 02, 2018 21:00
[2018-04-02] MEDS: MIRTAZAPINE 7.5 MG TABLET. PO SCH (21:14)
[2018-04-02] MEDS: risperiDONE 0.5 MG TABLET. PO SCH (21:14)
[2018-04-02] MEDS: MELATONIN 3 MG TABLET PO PRN (22:04)
[2018-04-03] MEDS ORDERED: MAG30ORA2 PO (01:38)
[2018-04-03] MEDS ORDERED: MAGN400O7 PO (01:41)
[2018-04-03] MEDS ORDERED: METH29OI TP (01:43)
[2018-04-03] MEDS ORDERED: MIRT15TA3 PO (01:47)
[2018-04-03] MEDS ORDERED: OLAN5TAB9 PO (01:49)
[2018-04-03] MEDS ORDERED: ZOLP5TAB PO (01:50)
[2018-04-03] MEDS ORDERED: BUPR-192 PO (01:51)
[2018-04-03] MEDS ORDERED: FLUV50TA2 PO (01:53)
[2018-04-03] MEDS ORDERED: RISP0.5T24 PO (01:54)
[2018-04-03] MEDS: LEVOTHYROXINE 50 MCG TABLET PO SCH (05:37)
[2018-04-03 05:40] VITALS: BP 142/82
--- NOTE | 2018-04-04 12:42 | PN ---
DATE: 04/01/2018 PSYCHIATRIC PROGRESS NOTE This is a late entry 04/01/2018, covers elements not covered in my initial note 04/01/2018. SUBJECTIVE: I met with the patient in the evening in her room. She slept 8-1/2 hours. States she feels unsafe from the male, demented patients on the unit, somewhat withdrawn, requesting something for sleep, even though nursing report she is sleeping reasonably. REVIEW OF SYSTEMS: No CV, , pulmonary, eye system symptoms on review. MENTAL STATUS EXAM: Reasonably oriented. Speech moderate latency, low in volume. Abstraction fair, computation impaired, language function intact. Mood and affect withdrawn. LABORATORY DATA: Reviewed. IMPRESSION: Unchanged from initial note. PLAN: Add Ambien p.r.n. 5 mg. Continue rest per initial note. MAN Carla COUGHLIN MD DR: YAKELIN/omar JOB#: [id number] / [id number]
--- NOTE | 2018-04-04 12:44 | PN ---
DATE: 04/02/2018 PSYCHIATRIC PROGRESS NOTE This is a late entry 04/02/2018, covers elements not covered in my initial note of 04/02/2018. SUBJECTIVE: I met with the patient in the evening, staffed at treatment team meeting with the entire team in the morning, reviewed her diagnoses. REVIEW OF SYSTEMS: No CV, , pulmonary, eye system symptoms on review. MENTAL STATUS EXAM: Oriented to herself and situation. Speech has some latency, coherent. Abstraction fair, computation impaired, language function intact. Mood and affect withdrawn. No suicidal ideation. LABORATORY DATA: Reviewed. IMPRESSION: Unchanged from initial note. PLAN: Unchanged from initial note. MAN Carla COUGHLIN MD DR: YAKELIN/omar JOB#: [id number] / [id number]
== END 2018-04-03 06:00 | DRG 885 ==
LOC: GEROPSY 20:56
PROVIDERS: ADMIT Psychiatry & Neurology Psychiatry; ATTEND Psychiatry & Neurology Psychiatry
DX: F33.3 Major depressive disorder, recurrent, severe with psychotic symptoms (principal); G30.9 Alzheimer's disease, unspecified; F01.51 Vascular dementia, unspecified severity, with behavioral disturbance; F02.81 Dementia in other diseases classified elsewhere, unspecified severity, with behavioral disturbance; E03.9 Hypothyroidism, unspecified; K59.00 Constipation, unspecified; E87.6 Hypokalemia; F09 Unspecified mental disorder due to known physiological condition; F41.9 Anxiety disorder, unspecified; F42.9 Obsessive-compulsive disorder, unspecified; F63.9 Impulse disorder, unspecified; I10 Essential (primary) hypertension; M81.0 Age-related osteoporosis without current pathological fracture; Z80.0 Family history of malignant neoplasm of digestive organs; Z80.41 Family history of malignant neoplasm of ovary; Z82.3 Family history of stroke; Z85.3 Personal history of malignant neoplasm of breast; Z90.12 Acquired absence of left breast and nipple; Z88.6 Allergy status to analgesic agent; Z88.1 Allergy status to other antibiotic agents; Z88.0 Allergy status to penicillin; Z88.8 Allergy status to other drugs, medicaments and biological substances
CPT/HCPCS: 36415; 74018; 80048; 80053; 80061; 82306; 82607; 83036; 83540; 83550; 83735; 84132; 84436; 84443; 84480; 85025; 86593; 93005